=== PATIENT | female | born 1955 | race Caucasian/White ===

== ENCOUNTER → 2016-09-16 | Outpatient (CLI) | payer OTHER ==
[~2016-09-16] MED LIST: ASTE0.15; CALCCHW12 OR; CETI10TA PO; CLAR1TAB2 PO; CLAR5CHW OR; ESTR1TAB OR; FOLI1TAB2 PO; LIDO5DIS EX; MAGN250T OR; METH2.5TA PO; MULTIVIT PO; OMEP20TA7 OR; PROV5TAB OR; SIMV20TA2 PO; SM I100T OR; SOMA350T OR; SUDA30TA OR; SUMA125TA OR; VIST25CA PO; VITA100037 PO; [UNRECOGNIZED DRUG - OTHER]; remicade IV
[2016-09-16 13:10] LABS: ALBUMIN 3.5 GM/DL (3.2-5.2); ALKALINE PHOSPHATASE 123 U/L (45-117); ALT/SGPT 65 U/L (12-78); AST/SGOT 28 U/L (15-37); BILIRUBIN,DIRECT < 0.1 MG/DL (0.0-0.2); BILIRUBIN,TOTAL 0.2 MG/DL (0.2-1.0)
== END ==
LOC: M WUC 09:10
PROVIDERS: ATTEND Internal Medicine Rheumatology
DX: M05.79 Rheumatoid arthritis with rheumatoid factor of multiple sites without organ or systems involvement (principal); R74.0 Nonspecific elevation of levels of transaminase and lactic acid dehydrogenase [LDH]; Z79.899 Other long term (current) drug therapy; Z51.81 Encounter for therapeutic drug level monitoring

== ENCOUNTER → 2016-09-23 | Outpatient (CLI) | payer OTHER ==
[2016-09-23 09:57] LABS: ALBUMIN 3.3 GM/DL (3.2-5.2); ALBUMIN/GLOBULIN RATIO 1.03 (1.00-1.93); ALKALINE PHOSPHATASE 110 U/L (45-117); ALT/SGPT 44 U/L (12-78); AST/SGOT 25 U/L (15-37); BILIRUBIN,DIRECT < 0.1 MG/DL (0.0-0.2); BILIRUBIN,TOTAL 0.3 MG/DL (0.2-1.0); TOTAL PROTEIN 6.5 GM/DL (6.4-8.2)
== END ==
LOC: M WUC 08:28
PROVIDERS: ATTEND Internal Medicine Rheumatology
DX: M05.79 Rheumatoid arthritis with rheumatoid factor of multiple sites without organ or systems involvement (principal); R74.0 Nonspecific elevation of levels of transaminase and lactic acid dehydrogenase [LDH]; Z51.81 Encounter for therapeutic drug level monitoring; Z79.899 Other long term (current) drug therapy

== ENCOUNTER → 2016-10-02 | Outpatient (CLI) | payer OTHER ==
--- NOTE | 2016-10-02 23:50 | ECWPNPC ---
PATIENT NAME: IFRAH LINDA : 1955 GENDER: FEMALE VISIT DATE: 10/02/2016 DISCHARGE DATE: 10/02/16 1134 VISIT LOCKED DATE TIME: PHYSICIAN: TEAGAN CALVILLO RESOURCE: TEAGAN CALVILLO REASON FOR APPOINTMENT 1. WC, LOW BACK HISTORY OF PRESENT ILLNESS HISTORY OF PRESENT ILLNESS: PAIN THE PATIENT DESCRIBES THE PAIN... THE PATIENT DESCRIBES THE PAIN... THE PATIENT DESCRIBES THE PAIN... HERE FOR 3 MOS F/U FOR CHRONIC LBP W BILAT LEG PAIN.RATING PAIN VAS 6/10.THIS A WORK RELATED INJURY DOI FEBRUARY 1997.CURRENT CHRONIC PAIN MEDICATION FOR WORK RELATED INJURY:SOMA 350MG TID.FINDS THIS MEDICINE EFFECTIVE IN REDUCING PAIN AND KEEPING HER FUNCTIONAL.DENIES SIDE EFFECTS.PAIN HAS INCRESED LATELY AND IS INVOLVING RIGHT POSTERIOR THIGH. FALL RISK SCREENING: SCREENING :NO FALLS IN THE PAST YEAR CURRENT MEDICATIONS TAKING REMICADE 100 MG SOLUTION RECONSTITUTED DIRECTED INTRAVENOUS EVERY 8 WEEKS TAKING MAGNESIUM 250 MG TABLET 1 TAB(S) ORALLY TWICE A DAY TAKING MULTIVITAMINS OTC TABLET 1 TAB(S) ORALLY ONCE A DAY TAKING CALCIUM 600 + D 600-400 MG-UNIT TABLET 1 TABLET ORALLY TWICE A DAY TAKING IBUPROFEN 200 MG TABLET 3 TABLETS ORALLY THREE TIMES A DAY TAKING METAMUCIL 1 CAPFUL 1 SCOOP TWICE ADAY NEEDED TAKING VITAMIN D 2000 UNIT TABLET 1 TAB(S) ORALLY ONCE A DAY TAKING LIDOCAINE 5 % PATCH 1 PATCH TO INTACT SKIN REMOVE AFTER 12 HOURS EXTERNALLY NEEDED TAKING OMEPRAZOLE 20 MG CAPSULE DELAYED RELEASE 2 CAPSULES ORALLY ONCE DAILY NEEDED TAKING RESTASIS 0.05 % EMULSION OU OPHTHALMIC TWICE A DAY TAKING FISH OIL 1000 MG CAPSULE 1 CAPSULE ORALLY BID TAKING SOMA 350 MG TABLET 1 TABLET ORALLY THREE TIMES A DAY MDD3 TAKING MECLIZINE HCL 25 MG TABLET 1 TAB ORALLY THREE TIMES DAILY NEEDED TAKING ONDANSETRON 4 MG TABLET DISPERSIBLE 1 TABLET ON THE TONGUE AND ALLOW TO DISSOLVE ORALLY EVERY 8 HRS PRN TAKING PREDNISONE 5MGS 8 TABS ORAL MORNING OF AND DAY AFTER REMICADE TAKING FLONASE ALLERGY RELIEF 50 MCG/ACT SUSPENSION 1 SPRAY IN EACH NOSTRIL NASALLY ONCE A DAY NOT-TAKING METHOTREXATE TABLET 6 TABLETS ORAL ONCE A WEEK NOT-TAKING FOLIC ACID 1 MG TABLET 1 TABLET ORALLY ONCE A DAY MEDICATION LIST REVIEWED AND RECONCILED WITH THE PATIENT PAST MEDICAL HISTORY FREQUENT SINUS INFECTIONS PSORIATIC RHEUMATOID ARTHRITIS (WASICEK) MIGRAINE H/A (OMAYRA FLYNN) LOW BACK SPASMS RAYNAUD'S ALLERGIES GOLD SHOTS: ITCHING: ALLERGY OTC CREAMS, LOTIONS AND DETERGENTS: RASH, ITCHING : ALLERGY ASPIRIN: HIVES: ALLERGY LACTOSE: TERRIBLE GAS: ALLERGY PLAQUENIL: EXTREME ITCHING, BLISTERS: ALLERGY TRAMADOL: CONSTIPATED, NAUSEA, EXTREMELY DRUGGED: ALLERGY LODINE: ITCHING: ALLERGY SULFA (FOR ALLERGY USE ONLY): RASH: ALLERGY SOCIAL HISTORY GENERAL: TOBACCO USE ARE YOU A:NONSMOKER LEARNING BARRIERS / SPECIAL NEEDS ORIENTED TO PLAN OF CARE: PATIENT, PAIN MANAGEMENT PATIENT, ORIENTED TO PLAN OF CARE: PATIENT, PAIN MANAGEMENT PATIENT. NEW PATIENT PAIN DIARY TODAY'S VISITNOTES FROM 0-10, WHAT LEVEL IS YOUR PAIN TODAY?0 PAIN CLINIC PFS, CLERGY, PUBLIC HEALTH REFERRALS PFS REFERRAL NEEDED?NO CLERGY REFERRAL NEEDED?NO PUBLIC HEALTH REFERRAL NEEDED?NO WAS THE PROVIDER NOTIFIED OF ANY PERTINENT INFO?NO PFS REFERRAL NEEDED?NO CLERGY REFERRAL NEEDED?NO PUBLIC HEALTH REFERRAL NEEDED?NO WAS THE PROVIDER NOTIFIED OF ANY PERTINENT INFO?NO REVIEW OF SYSTEMS CONSTITUTIONAL: ANY CHANGE IN YOUR MEDICAL CONDITION? NO . CHILLS NO . FEVER NO . INFECTION: DO YOU HAVE NEW INFECTIONS? NO . DO YOU HAVE HISTORY OF MRSA? NO . MUSCULOSKELETAL: ANY NEW PATTERNS OF PAIN OR NUMBNESS? NO . GASTROENTEROLOGY: ANY NEW CHANGE IN BOWEL CONTROL? NO . GENITOURINARY: ANY NEW CHANGE IN BLADDER CONTROL? NO . IS THERE A CHANCE YOU COULD BE ? NO . HEMATOLOGY/LYMPH: DO YOU TAKE ANY BLOOD THINNERS? (FOR EXAMPLE- COUMADIN, PLAVIX, AGGRENOX, PLATEL, PRADAXA, OR XARELTO) NO . WHEN WAS YOUR LAST DOSE? DATE: TIME: . NEUROLOGY: HAVE YOU FALLEN IN THE PAST 6 MONTHS? NO . ANY NEW EXTREMITY NUMBNESS OR WEAKNESS? NO . CARDIOLOGY: DO YOU HAVE A PACEMAKER OR DEFIBRILLATOR? NO . RESPIRATORY: HAVE YOU BEEN SICK IN THE PAST WEEK? NO . FEVER NO . FLU LIKE SYMPTOMS? NO . COUGH NO . INTEGUMENTARY: DO YOU HAVE ANY RASHES OR OPEN SORES? NO . ALLERGIC/IMMUNO: ARE YOU ALLERGIC TO SHELLFISH OR IV DYE? NO . ANY NEW ALLERGIES? NO . PSYCHIATRIC: DO YOU HAVE THOUGHTS OF HURTING YOURSELF OR SOMEONE ELSE? NO . ARE YOU ABUSED, NEGLECTED, OR IN AN UNSAFE ENVIRONMENT? NO . ENDOCRINOLOGY: ARE YOU DIABETIC? NO . OTHER: DO YOU NEED ANY PRESCRIPTIONS? NO . IF YES, PLEASE LIST: ____ . ANY NEW PROBLEMS WITH YOUR MEDICATIONS? NO . WHEN DID YOU LAST EAT? ____ . WHEN DID YOU LAST DRINK? ____ . WHAT DID YOU LAST DRINK? ____ . NAME OF PERSON DRIVING YOU HOME? ____ . DO YOU HAVE ANY OTHER QUESTIONS OR CONCERNS YES, WOULD LIKE TO TALK ABOUT ANOTHER INJECTION . REVIEWED BY: PROVIDER: TEAGAN STEVE . VITAL SIGNS WT 162 LBS, HT 65.25 IN, BMI 26.75 INDEX, BP 119/64 MM HG, HR 74 /MIN, RR 16 /MIN, TEMP 96.0 F, OXYGEN SAT % 100, NA INITIALS TL 1045, REVIEWED BY: AD. EXAMINATION GENERAL EXAMINATION: LUNGS:LUNG SOUNDS ARE CLEAR. HEART:HEART RATE REGULAR. MUSCULOSKELETAL:*. MUSCULOSKELETAL:*, MUSCLE STRENGTH TESTING 5/5 BILATERAL, PALPATION: POSITIVE FOR PAIN OVER L/S SPINE. POSITIVE FOR PAIN OVER L/S PARSPINALS R>L. ASSESSMENTS POST LAMINECTOMY SYNDROME - M96.1 (PRIMARY) TREATMENT POST LAMINECTOMY SYNDROME CONTINUE SOMA TABLET, 350 MG, 1 TABLET, ORALLY, THREE TIMES A DAY MDD3 TRANSFORAMINAL TEAGAN POLLOCK 10/02/2016 11:21:43 AM > RIGHT L4,L5,S1 NOTES: PATIENT WILL SCEDULE LAST WEEK OF OCTOBER WHICH IS 7 DAYS PRIOR TO NEXT REMICADE. PREVENTIVE MEDICINE PAIN CLINIC TEACHING: PROCEDURE TEACHING PT. DECLINED PRINTED INFORMTION ON PROCEDURE. SHE HAS HAD THESE IN THE PAST AND IS FAMILIAR WITH IT.. PROCEDURE CODES FA211 ESTABILISHED PATIENT [facility] CHARGE FOLLOW UP SCHEDULE RIGHT L4/5,S1 LAST WEEK OF OCT.SHE WILL CALL AND CANCEL IF NOT COMP APPROVED (REASON: W/C L4/5-S1 RIGHT TRANSFORAMINAL) ELECTRONICALLY SIGNED BY EVI KIMBALL ON 10/02/2016 AT 02:38 PM EST DISCLAIMER : THIS IS A VISIT SUMMARY EXTRACTED FROM THE [employer] CHART. IT IS NOT A COPY OF THE [email or web address] PROGRESS NOTE. [place]
== END ==
LOC: M PAIN 11:00
PROVIDERS: ATTEND Nurse Practitioner Family
DX: M96.1 Postlaminectomy syndrome, not elsewhere classified (principal); M54.5 Low back pain; M79.604 Pain in right leg; M79.605 Pain in left leg; G89.29 Other chronic pain; Z79.52 Long term (current) use of systemic steroids; Z79.899 Other long term (current) drug therapy; Z91.09 Other allergy status, other than to drugs and biological substances; Z88.8 Allergy status to other drugs, medicaments and biological substances; Z91.02 Food additives allergy status

== ENCOUNTER → 2016-12-18 | Outpatient (CLI) | payer OTHER ==
--- NOTE | 2016-12-30 00:05 | ECWPNPC ---
PATIENT NAME: IFRAH LINDA : 1955 GENDER: FEMALE VISIT DATE: 12/18/2016 DISCHARGE DATE: 12/18/16 1524 VISIT LOCKED DATE TIME: PHYSICIAN: WAGNER SIMPSON RESOURCE: WAGNER SIMPSON REASON FOR APPOINTMENT 1. LOW BACK PAIN HISTORY OF PRESENT ILLNESS HISTORY OF PRESENT ILLNESS: PAIN THE PATIENT DESCRIBES THE PAIN... 61 YEAR OLD FEMALE PATIENT WITH HISTORY OF CHRONIC LOW BACK PAIN. PATIENT DESCRIBES THE PAIN SHARP, TENDER, AND SORE WITH A PAIN SCORE OF 7-8/10. 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 PATIENT RECEIVED A BACK SURGERY IN 1997 WHICH DID NOT HELP WITH HER PAIN. MRS. LINDA STATES THAT SHE HAS TRIED PHYSICAL THERAPY BUT IT DID NOT AID IN PAIN RELIEF. PATIENT IS CURRENTLY USING SOMA NEEDED AND REPORTS THAT THE MEDICATION KEEPS HER MOBILE AND FUNCTIONAL. PATIENT DENIES UNEXPLAINABLE WEIGHT LOSS, FEVER, CHILLS, NEW CHANGES ON HER URINARY OR BOWEL CONTROL. FALL RISK SCREENING: SCREENING :NO FALLS IN THE PAST YEAR CURRENT MEDICATIONS TAKING REMICADE 100 MG SOLUTION RECONSTITUTED DIRECTED INTRAVENOUS EVERY 8 WEEKS TAKING MAGNESIUM 250 MG TABLET 1 TAB(S) ORALLY TWICE A DAY TAKING MULTIVITAMINS OTC TABLET 1 TAB(S) ORALLY ONCE A DAY TAKING CALCIUM 600 + D 600-400 MG-UNIT TABLET 1 TABLET ORALLY TWICE A DAY TAKING IBUPROFEN 200 MG TABLET 3 TABLETS ORALLY NEEDED 3X/DAY TAKING METAMUCIL 1 CAPFUL 1 SCOOP TWICE ADAY NEEDED TAKING VITAMIN D 2000 UNIT TABLET 1 TAB(S) ORALLY ONCE A DAY TAKING LIDOCAINE 5 % PATCH 1 PATCH TO INTACT SKIN REMOVE AFTER 12 HOURS EXTERNALLY NEEDED TAKING OMEPRAZOLE 20 MG CAPSULE DELAYED RELEASE 2 CAPSULES ORALLY ONCE DAILY NEEDED TAKING RESTASIS 0.05 % EMULSION OU OPHTHALMIC TWICE A DAY TAKING FISH OIL 1000 MG CAPSULE 1 CAPSULE ORALLY BID TAKING MECLIZINE HCL 25 MG TABLET 1 TAB ORALLY THREE TIMES DAILY NEEDED TAKING ONDANSETRON 4 MG TABLET DISPERSIBLE 1 TABLET ON THE TONGUE AND ALLOW TO DISSOLVE ORALLY EVERY 8 HRS PRN TAKING PREDNISONE 5MGS 8 TABS ORAL MORNING OF AND DAY AFTER REMICADE TAKING FLONASE ALLERGY RELIEF 50 MCG/ACT SUSPENSION 1 SPRAY IN EACH NOSTRIL NASALLY ONCE A DAY TAKING SOMA 350 MG TABLET 1 TABLET ORALLY THREE TIMES A DAY MDD3 NOT-TAKING METHOTREXATE TABLET 6 TABLETS ORAL ONCE A WEEK NOT-TAKING FOLIC ACID 1 MG TABLET 1 TABLET ORALLY ONCE A DAY MEDICATION LIST REVIEWED AND RECONCILED WITH THE PATIENT PAST MEDICAL HISTORY FREQUENT SINUS INFECTIONS PSORIATIC RHEUMATOID ARTHRITIS (NICOLE) MIGRAINE H/A (OMAYRAEDITH FLYNN) LOW BACK SPASMS RAYNAUD'S ALLERGIES GOLD SHOTS: ITCHING: ALLERGY OTC CREAMS, LOTIONS AND DETERGENTS: RASH, ITCHING : ALLERGY ASPIRIN: HIVES: ALLERGY LACTOSE: TERRIBLE GAS: ALLERGY PLAQUENIL: EXTREME ITCHING, BLISTERS: ALLERGY TRAMADOL: CONSTIPATED, NAUSEA, EXTREMELY DRUGGED: ALLERGY LODINE: ITCHING: ALLERGY SULFA (FOR ALLERGY USE ONLY): RASH: ALLERGY SURGICAL HISTORY DISKECTOMY-BACK SURGERY CERVICAL CERCLAGE DURING COLONOSCOPY, DR. OVALLE. 07/2013 FAMILY HISTORY NO FAMILY HISTORY DOCUMENTED. SOCIAL HISTORY GENERAL: PAIN CLINIC PFS, CLERGY, PUBLIC HEALTH REFERRALS CLERGY REFERRAL NEEDED?NO WAS THE PROVIDER NOTIFIED OF ANY PERTINENT INFO?NO PFS REFERRAL NEEDED?NO PUBLIC HEALTH REFERRAL NEEDED?NO PATIENT: ____. HOSPITALIZATION/MAJOR DIAGNOSTIC PROCEDURE NO HOSPITALIZATION HISTORY. REVIEW OF SYSTEMS CONSTITUTIONAL: ANY CHANGE IN YOUR MEDICAL CONDITION? NO . CHILLS NO . FEVER NO . INFECTION: DO YOU HAVE NEW INFECTIONS? NO . DO YOU HAVE HISTORY OF MRSA? NO . MUSCULOSKELETAL: ANY NEW PATTERNS OF PAIN OR NUMBNESS? NO . GASTROENTEROLOGY: ANY NEW CHANGE IN BOWEL CONTROL? NO . GENITOURINARY: ANY NEW CHANGE IN BLADDER CONTROL? NO . IS THERE A CHANCE YOU COULD BE ? NO . HEMATOLOGY/LYMPH: DO YOU TAKE ANY BLOOD THINNERS? (FOR EXAMPLE- COUMADIN, PLAVIX, AGGRENOX, PLATEL, PRADAXA, OR XARELTO) NO . WHEN WAS YOUR LAST DOSE? DATE: TIME: . NEUROLOGY: HAVE YOU FALLEN IN THE PAST 6 MONTHS? NO . ANY NEW EXTREMITY NUMBNESS OR WEAKNESS? NO . CARDIOLOGY: DO YOU HAVE A PACEMAKER OR DEFIBRILLATOR? NO . RESPIRATORY: HAVE YOU BEEN SICK IN THE PAST WEEK? NO . FEVER NO . FLU LIKE SYMPTOMS? NO . COUGH NO . INTEGUMENTARY: DO YOU HAVE ANY RASHES OR OPEN SORES? YES PSORIASIS . ALLERGIC/IMMUNO: ARE YOU ALLERGIC TO SHELLFISH OR IV DYE? NO . ANY NEW ALLERGIES? NO . PSYCHIATRIC: DO YOU HAVE THOUGHTS OF HURTING YOURSELF OR SOMEONE ELSE? NO . ARE YOU ABUSED, NEGLECTED, OR IN AN UNSAFE ENVIRONMENT? NO . ENDOCRINOLOGY: ARE YOU DIABETIC? NO . OTHER: DO YOU NEED ANY PRESCRIPTIONS? YES SOMA . IF YES, PLEASE LIST: ____ . ANY NEW PROBLEMS WITH YOUR MEDICATIONS? NO . WHEN DID YOU LAST EAT? ____ . WHEN DID YOU LAST DRINK? ____ . WHAT DID YOU LAST DRINK? ____ . NAME OF PERSON DRIVING YOU HOME? ____ . DO YOU HAVE ANY OTHER QUESTIONS OR CONCERNS NO . REVIEWED BY: PROVIDER: WAGNER SIMPSON MD . VITAL SIGNS WT 160.4 LBS, HT 65.25 IN, BMI 26.48 INDEX, BP 126/66 MM HG, HR 73 /MIN, RR 16 /MIN, TEMP 98.0 F, OXYGEN SAT % 98, NA INITIALS AW 233, REVIEWED BY: MLF. EXAMINATION : PATIENT IS ALERT O X 3 AND COOPERATIVE. TENDERNESS IN THE LOWER BACK AND PARASPINAL MUSCLE GROW MORE TOWARDS THE RIGHT. PATIENT ABLE TO FLEX BACK 45 DEGREES AND EXTEND 10 DEGREES WITH DISCOMFORT. RIGHT LEG IS WEAKER THEN THE LEFT AT EXTENSION AND FLEXION. MRI DONE IN NOVEMBER 2013 SHOWS POST LAMINECTOMY CHANGES AND A COMPRESSION OVER THE L5 NERVE. ASSESSMENTS POST LAMINECTOMY SYNDROME - M96.1 (PRIMARY) INTERVERTEBRAL DISC DISORDERS WITH RADICULOPATHY, LUMBAR REGION - M51.16 INTERVERTEBRAL DISC DISORDERS WITH RADICULOPATHY, LUMBOSACRAL REGION - M51.17 TREATMENT POST LAMINECTOMY SYNDROME REFILL SOMA TABLET, 350 MG, 1 TABLET (CODE D FOR CRONIC PAIN), ORALLY FOR SPASMS AND PAIN, THREE TIMES A DAY NEEDED MDD3, 60 DAYS, 180, REFILLS 0 NOTES: WE DISCUSSED SEVERAL ISSUES WITH MRS. LINDA'S PAIN MANAGEMENT CASE. AT THIS TIME THE PATIENT WILL CONTINUE WITH THE SAME MEDICATION REGIME BEFORE. PATIENT WILL CONTINUE TO USE THE SOMA FOR THE MUSCLE SPASMS AND REPORTS THAT SHE WOULD NOT BE ABLE TO FUNCTION WITHOUT USING THEM DAILY. PATIENT WILL CONTINUE USING IBUPROFEN AND LIDOCAINE CREAM WELL TO KEEP HER MOBILE AND FUNCTIONAL. URINE TOXICOLOGY REPORT DONE ON 08/07/2015 SHOWS CONSISTENT RESULTS WITH THE PATIENTS MEDICATION LIST. AFTER VIEWING THE PATIENT'S MRI AND WHERE THE PATIENT STATES THE WORST PAIN IS I WOULD LIKE TO MOVE FORWARD WITH A TRANSFORAMINAL INJECTION. WE DISCUSSED THE RISKS, BENENFITS, AND ALTNERATIVES OF THE INJECTION AND THE PATIENT WOULD LIKE TO PROCEED AT THIS TIME. INSTRUCTIONS WERE GIVEN, QUESTIONS WERE ANSWERED, PATIENT REPORTS UNDERSTANDING AND AGREES WITH THE PLAN. I, JOHN GRIDER, DOCUMENTED THE ABOVE INFORMATION ACTING A SCRIBE FOR DR. SIMPSON. I HAVE REVIEWED THE ABOVE DOCUMENT, WRITTEN BY JOHN FERNANDEZ AND I VERIFY THAT IT IS ACCURATE. PROCEDURES PN WORKMANS' COMP OPINION IN YOUR OPINION, WAS THE INCIDENT THAT THE PATIENT DESCRIBED THE COMPETENT MEDICAL CAUSE OF THIS INJURY/ILLNESS? YES ARE THE PATIENT'S COMPLAINTS CONSISTENT WITH HIS/HER HISTORY OF THE INJURY/ILLNESS? YES IS THE PATIENT'S HISTORY OF THE INJURY/ILLNESS CONSISTENT WITH YOUR OBJECTIVE FINDING? YES WHAT IS THE PERCENTAGE OF TEMPORARY IMPAIRMENT? MODERATE TO MARKED = 66.7% IS THE PATIENT WORKING? NO DOCTOR ON SITE: WAGNER HOPE MD PROCEDURE CODES FA211 ESTABILISHED PATIENT [facility] FACILITY CHARGE G8427 DOC MEDS VERIFIED W/PT OR RE G8730 PAIN ASSESS POS TOOL F/U PLAN DOC DISPOSITION & COMMUNICATION FOLLOW UP TRANSFORAMINAL AFER APPROVAL ELECTRONICALLY SIGNED BY WAGNER SIMPSON MD ON 12/29/2016 AT 12:43 PM EDT DISCLAIMER : THIS IS A VISIT SUMMARY EXTRACTED FROM THE [email or web address] CHART. IT IS NOT A COPY OF THE [email or web address] PROGRESS NOTE. [place]ADISE
== END ==
LOC: M PAIN 14:00
PROVIDERS: ATTEND Anesthesiology
DX: Z09 Encounter for follow-up examination after completed treatment for conditions other than malignant neoplasm (principal); M96.1 Postlaminectomy syndrome, not elsewhere classified; G89.29 Other chronic pain; M51.16 Intervertebral disc disorders with radiculopathy, lumbar region; M51.17 Intervertebral disc disorders with radiculopathy, lumbosacral region; L40.52 Psoriatic arthritis mutilans; G43.909 Migraine, unspecified, not intractable, without status migrainosus; I73.00 Raynaud's syndrome without gangrene; Z88.8 Allergy status to other drugs, medicaments and biological substances; Z91.09 Other allergy status, other than to drugs and biological substances; Z88.6 Allergy status to analgesic agent; E73.9 Lactose intolerance, unspecified; Z88.5 Allergy status to narcotic agent; Z88.2 Allergy status to sulfonamides; Z79.1 Long term (current) use of non-steroidal anti-inflammatories (NSAID); Z79.52 Long term (current) use of systemic steroids; Z79.891 Long term (current) use of opiate analgesic; Z79.899 Other long term (current) drug therapy

== ENCOUNTER → 2016-12-29 | Outpatient (CLI) | payer OTHER ==
[~2016-12-29] MED LIST changes: +BUPIVACAINE HCL 0.25% 30 ML VIAL As Ordered ONE; +ISOVUE-M 300 61% 15ML VIAL (Q9967) As Ordered ONE; +LIDOCAINE 1% SDV INJ 30 ML VIAL As Ordered ONE; +dexameTHASONE 10 MG/1 ML VIAL PRES.FREE (J1100) As Ordered ONE
--- NOTE | 2016-12-29 13:17 | REP ---
Partial lumbar spine series: Seven views. History: Injection procedure for pain. 59 seconds of fluoroscopy time is reported. Findings: A sequence of seven fluoroscopically guided last image hold spot radiographs of the lumbar spine document various needle positions and contrast injections associated with injection procedure. Signed by Cyrus Huynh MD 12/29/2016 06:26 P
--- NOTE | 2017-01-05 00:35 | ECWPNPC ---
PATIENT NAME: IFRAH LINDA : 1955 GENDER: FEMALE VISIT DATE: 12/29/2016 DISCHARGE DATE: 12/29/16 1222 VISIT LOCKED DATE TIME: PHYSICIAN: WAGNER SIMPSON RESOURCE: WAGNER SIMPSON REASON FOR APPOINTMENT 1. TRANSFORAMINAL MTG HISTORY OF PRESENT ILLNESS HISTORY OF PRESENT ILLNESS: PAIN THE PATIENT DESCRIBES THE PAIN... FALL RISK SCREENING: SCREENING :NO FALLS IN THE PAST YEAR CURRENT MEDICATIONS TAKING REMICADE 100 MG SOLUTION RECONSTITUTED DIRECTED INTRAVENOUS EVERY 8 WEEKS, NOTES: 6 WEEKS AGO TAKING MAGNESIUM 250 MG TABLET 1 TAB(S) ORALLY TWICE A DAY, NOTES: 12/29/16699 TAKING CALCIUM 600 + D 600-400 MG-UNIT TABLET 1 TABLET ORALLY TWICE A DAY, NOTES: 12/29/16699 TAKING MULTIVITAMINS OTC TABLET 1 TAB(S) ORALLY TWICEA DAY, NOTES: 12/29/16699 TAKING IBUPROFEN 200 MG TABLET 3 TABLETS ORALLY NEEDED 3X/DAY, NOTES: 12/28/162099 TAKING METAMUCIL 1 CAPFUL 1 SCOOP TWICE ADAY NEEDED, NOTES: NONE RECNTLY TAKING VITAMIN D 2000 UNIT TABLET 1 TAB(S) ORALLY ONCE A DAY, NOTES: 12/29/16699 TAKING LIDOCAINE 5 % PATCH 1 PATCH TO INTACT SKIN REMOVE AFTER 12 HOURS EXTERNALLY NEEDED, NOTES: 12/28/16699 TAKING OMEPRAZOLE 20 MG CAPSULE DELAYED RELEASE 2 CAPSULES ORALLY ONCE DAILY NEEDED, NOTES: NONE RECENTLY TAKING RESTASIS 0.05 % EMULSION 1 DROP INTO AFFECTED EYE OPHTHALMIC TWICE A DAY, NOTES: 12/29/16699 TAKING FISH OIL 1000 MG CAPSULE 1 CAPSULE ORALLY BID, NOTES: 12/29/16699 TAKING MECLIZINE HCL 25 MG TABLET 1 TAB ORALLY THREE TIMES DAILY NEEDED, NOTES: 2-3 DAYS AGO TAKING ONDANSETRON 4 MG TABLET DISPERSIBLE 1 TABLET ON THE TONGUE AND ALLOW TO DISSOLVE ORALLY EVERY 8 HRS PRN, NOTES: NONE RECENTLY TAKING PREDNISONE 5MGS 8 TABS ORAL MORNING OF AND DAY AFTER REMICADE, NOTES: 6 WEEKS AGO TAKING FLONASE ALLERGY RELIEF 50 MCG/ACT SUSPENSION 1 SPRAY IN EACH NOSTRIL NASALLY ONCE A DAY, NOTES: 12/28/162099 TAKING SOMA 350 MG TABLET 1 TABLET (CODE D FOR CRONIC PAIN) ORALLY FOR SPASMS AND PAIN THREE TIMES A DAY NEEDED MDD3, NOTES: 12/29/16 0700 NOT-TAKING METHOTREXATE TABLET 6 TABLETS ORAL ONCE A WEEK NOT-TAKING FOLIC ACID 1 MG TABLET 1 TABLET ORALLY ONCE A DAY MEDICATION LIST REVIEWED AND RECONCILED WITH THE PATIENT PAST MEDICAL HISTORY FREQUENT SINUS INFECTIONS PSORIATIC RHEUMATOID ARTHRITIS (NICOLE) MIGRAINE H/A (OMAYRA GEE) LOW BACK SPASMS RAYNAUD'S ALLERGIES GOLD SHOTS: ITCHING: ALLERGY OTC CREAMS, LOTIONS AND DETERGENTS: RASH, ITCHING : ALLERGY ASPIRIN: HIVES: ALLERGY LACTOSE: TERRIBLE GAS: ALLERGY PLAQUENIL: EXTREME ITCHING, BLISTERS: ALLERGY TRAMADOL: CONSTIPATED, NAUSEA, EXTREMELY DRUGGED: ALLERGY LODINE: ITCHING: ALLERGY SULFA (FOR ALLERGY USE ONLY): RASH: ALLERGY SURGICAL HISTORY DISKECTOMY-BACK SURGERY 1997 CERVICAL CERCLAGE DURING COLONOSCOPY, DR. OVALLE. 07/2013 SOCIAL HISTORY GENERAL: PAIN CLINIC PFS, CLERGY, PUBLIC HEALTH REFERRALS CLERGY REFERRAL NEEDED?NO WAS THE PROVIDER NOTIFIED OF ANY PERTINENT INFO?NO PFS REFERRAL NEEDED?NO PUBLIC HEALTH REFERRAL NEEDED?NO PATIENT: ____. HOSPITALIZATION/MAJOR DIAGNOSTIC PROCEDURE SURGERIES REVIEW OF SYSTEMS CONSTITUTIONAL: ANY CHANGE IN YOUR MEDICAL CONDITION? NO . CHILLS NO . FEVER NO . INFECTION: DO YOU HAVE NEW INFECTIONS? NO . DO YOU HAVE HISTORY OF MRSA? NO . MUSCULOSKELETAL: ANY NEW PATTERNS OF PAIN OR NUMBNESS? NO . GASTROENTEROLOGY: ANY NEW CHANGE IN BOWEL CONTROL? NO . GENITOURINARY: ANY NEW CHANGE IN BLADDER CONTROL? NO . IS THERE A CHANCE YOU COULD BE ? NO . HEMATOLOGY/LYMPH: DO YOU TAKE ANY BLOOD THINNERS? (FOR EXAMPLE- COUMADIN, PLAVIX, AGGRENOX, PLATEL, PRADAXA, OR XARELTO) NO . WHEN WAS YOUR LAST DOSE? DATE: TIME: . NEUROLOGY: HAVE YOU FALLEN IN THE PAST 6 MONTHS? NO . ANY NEW EXTREMITY NUMBNESS OR WEAKNESS? NO . CARDIOLOGY: DO YOU HAVE A PACEMAKER OR DEFIBRILLATOR? NO . RESPIRATORY: HAVE YOU BEEN SICK IN THE PAST WEEK? NO . FEVER NO . FLU LIKE SYMPTOMS? NO . COUGH NO . INTEGUMENTARY: DO YOU HAVE ANY RASHES OR OPEN SORES? PSORIASIS . ALLERGIC/IMMUNO: ARE YOU ALLERGIC TO SHELLFISH OR IV DYE? NO . ANY NEW ALLERGIES? NO . PSYCHIATRIC: DO YOU HAVE THOUGHTS OF HURTING YOURSELF OR SOMEONE ELSE? NO . ARE YOU ABUSED, NEGLECTED, OR IN AN UNSAFE ENVIRONMENT? NO . ENDOCRINOLOGY: ARE YOU DIABETIC? NO . OTHER: DO YOU NEED ANY PRESCRIPTIONS? NO . IF YES, PLEASE LIST: ____ . ANY NEW PROBLEMS WITH YOUR MEDICATIONS? NO . WHEN DID YOU LAST EAT? LAST NIGHT . WHEN DID YOU LAST DRINK? 0700 . WHAT DID YOU LAST DRINK? SIP WATER . NAME OF PERSON DRIVING YOU HOME? BRANDY LINDA . DO YOU HAVE ANY OTHER QUESTIONS OR CONCERNS NO . REVIEWED BY: PROVIDER: . VITAL SIGNS WT 165.0 LBS, HT 65.25 IN, BMI 27.24 INDEX, BP 137/74 MM HG, HR 71 /MIN, RR 16 /MIN, TEMP 97.6 F, OXYGEN SAT % 99%, NA INITIALS AW 1036, REVIEWED BY: LS. ASSESSMENTS INTERVERTEBRAL DISC DISORDERS WITH RADICULOPATHY, LUMBAR REGION - M51.16 (PRIMARY) INTERVERTEBRAL DISC DISORDERS WITH RADICULOPATHY, LUMBOSACRAL REGION - M51.17 PROCEDURES PN LUMBAR TRANSFORAMINAL BLOCKS PRE PROCEDURE DIAGNOSIS LUMBAR DISC DISORDER WITH RADICULOPATHY, , LUMBOSACRAL DISC DISORDER WITH RADICULOPATHY POST PROCEDURE DIAGNOSIS LUMBAR DISC DISORDER WITH RADICULOPATHY, , LUMBOSACRAL DISC DISORDER WITH RADICULOPATHY PROCEDURE RIGHT L4, RIGHT L5, AND RIGHT S1 LUMBAR TRANSFORAMINAL EPIDURAL STEROID INJECTION UNDER FLUOROSCOPIC GUIDANCE SURGEON DR WAGNER SIMPSON SPUDDER NONE ANESTHESIA LOCAL PRE PROCEDURE NOTE PATIENT WITH HISTORY OF CHRONIC LOW BACK PAIN. I EVALUATE THE PATIENT AND REVIEWED THE CHART. I WENT OVER THE RISKS, ALTERNATIVES, AND BENEFITS ASSOCIATED WITH THIS PROCEDURE. THE PATIENT WOULD LIKE TO PROCEED AND GIVE CONSENT TO PERFORMED THE PROCEDURE. THE PATIENT DENIES UNEXPLAINABLE WEIGHT LOSS, FEVER, CHILLS, OR CHANGES IN URINARY OR BOWEL CONTROL DESCRIPTION OF PROCEDURE THE PATIENT WAS BROUGHT TO THE PROCEDURE ROOM AND PLACED IN THE PRONE POSITION. THE LUMBOSACRAL AREA WAS CLEANED WITH BETADINE SOLUTION AND DRAPED ASEPTICALLY. THE PROCEDURE WAS DONE UNDER STERILE CONDITIONS. I CHECKED LATERALITY AND THE LEVEL WHERE THE PROCEDURE WAS GOING TO BE PERFORMED WITH THE PATIENT AND THE SUPPORTING STAFF AT THE MOMENT OF THE TIME OUT IN THE PROCEDURE ROOM. UNDER FLUOROSCOPIC GUIDANCE, TARGETS WERE SELECTED AT THE RIGHT TRANSFORAMINAL OPENING OF L4, L5, AND S1. TARGET POINT WAS SELECTED AFTER LATERAL ROTATION AND TILT OF THE MAGNIFIER OF THE C-ARM. LIDOCAINE 0.5% WAS USED TO NUMB THE SKIN AND THE SUBCUTANEOUS TISSUE BELOW IT. AN EPIMED INTRODUCER 18-GAUGE WAS ADVANCED UNTIL WE WENT CLOSE TO THE SELECTED TRANSFORAMINAL OPENINGS. AFTER PROPER POSITION OF THE NEEDLES WAS ACHIEVED, A 22-GAUGE EPIMED NEEDLE WAS PLACED INSIDE OF THE INTRODUCER AND ADVANCED TO THE TRANSFORAMINAL OPENING OF THE SELECTED SITES. WHEN PROPER POSITION OF THE NEEDLE WAS ACHIEVED, ISOVUE M DYE 30%, 0.25 ML, WAS INJECTED SHOWING ADEQUATE SPREAD OF THE DYE. THIS WAS DONE UNDER DIGITAL SUBTRACTION AND ANGIOGRAPHY. THERE WAS NO VASCULAR UPDATE. THEN, A SOLUTION OF 2 ML OF BUPIVACAINE 0.25% AND DEXAMETHASONE 10 MG WAS INJECTED AT EACH SITE. THERE WAS NO EVIDENCE OF BLOOD, PARESTHESIA OR CEREBROSPINAL FLUID DURING THE PROCEDURE. THE PATIENT WAS SENT TO THE RECOVERY ROOM. THE PATIENT WAS MOVING THE EXTREMITIES AND DOING WELL. THERE WAS NO COMPLICATION DURING THE PROCEDURE. FLUOROSCOPY TIME WAS 59 SECONDS POST PROCEDURE NOTE THE PROCEDURE DONE WAS DISCUSSED WITH THE PATIENT. THE PATIENT WILL BE SEEN IN A FOLLOW UP IN THE NEXT FEW WEEKS. INSTRUCTIONS WERE GIVEN, QUESTIONS WERE ANSWERED, AND THE PATIENT EXPRESSED UNDERSTANDING AND AGREES WITH THE PLAN. I, MARIA R BROWN, DOCUMENTED THE ABOVE INFORMATION ACTING A SCRIBE FOR DR. SIMPSON. I HAVE REVIEWED THE ABOVE DOCUMENT, WRITTEN BY MARIA R FERNANDEZ AND I VERIFY THAT IT IS ACCURATE. PN WORKMANS' COMP OPINION IN YOUR OPINION, WAS THE INCIDENT THAT THE PATIENT DESCRIBED THE COMPETENT MEDICAL CAUSE OF THIS INJURY/ILLNESS? YES ARE THE PATIENT'S COMPLAINTS CONSISTENT WITH HIS/HER HISTORY OF THE INJURY/ILLNESS? YES IS THE PATIENT'S HISTORY OF THE INJURY/ILLNESS CONSISTENT WITH YOUR OBJECTIVE FINDING? YES WHAT IS THE PERCENTAGE OF TEMPORARY IMPAIRMENT? MODERATE TO MARKED = 66.7% IS THE PATIENT WORKING? NO DOCTOR ON SITE: WAGNER HOPE MD [facility] GUIDE SPINE INJECTION (PAIN)[id number] PROCEDURE CODES 21547 INJ FORAMEN EPIDURAL L/S 32871 INJ FORAMEN EPIDURAL ADD-ON 6045F RADXPS IN END [id number] PXD DISPOSITION & COMMUNICATION FOLLOW UP 3 WEEKS ELECTRONICALLY SIGNED BY WAGNER SIMPSON MD ON 01/04/2017 AT 05:55 PM EDT DISCLAIMER : THIS IS A VISIT SUMMARY EXTRACTED FROM THE [employer] CHART. IT IS NOT A COPY OF THE [facility] PROGRESS NOTE. [place]
== END ==
LOC: M PAIN 11:00
PROVIDERS: ATTEND Anesthesiology
DX: G89.29 Other chronic pain (principal); M51.16 Intervertebral disc disorders with radiculopathy, lumbar region; M51.17 Intervertebral disc disorders with radiculopathy, lumbosacral region; J32.9 Chronic sinusitis, unspecified; I73.00 Raynaud's syndrome without gangrene; Z88.8 Allergy status to other drugs, medicaments and biological substances; Z91.09 Other allergy status, other than to drugs and biological substances; Z88.6 Allergy status to analgesic agent; E73.9 Lactose intolerance, unspecified; Z88.5 Allergy status to narcotic agent; Z88.2 Allergy status to sulfonamides; Z79.899 Other long term (current) drug therapy
CPT/HCPCS: 64483; 64484; J1100; Q9967

== ENCOUNTER → 2017-02-17 | Outpatient (CLI) | payer OTHER ==
[~2017-02-17] MED LIST changes: -BUPIVACAINE HCL 0.25% 30 ML VIAL As Ordered ONE; -ISOVUE-M 300 61% 15ML VIAL (Q9967) As Ordered ONE; -LIDOCAINE 1% SDV INJ 30 ML VIAL As Ordered ONE; -dexameTHASONE 10 MG/1 ML VIAL PRES.FREE (J1100) As Ordered ONE
--- NOTE | 2017-03-04 02:46 | ECWPNPC ---
PATIENT NAME: IFRAH LINDA : 1955 GENDER: FEMALE VISIT DATE: 02/17/2017 DISCHARGE DATE: 02/17/17 1505 VISIT LOCKED DATE TIME: PHYSICIAN: WAGNER SIMPSON RESOURCE: WAGNER SIMPSON REASON FOR APPOINTMENT 1. POST PROCEDURE HISTORY OF PRESENT ILLNESS GENERAL: 61 YEAR OLD FEMALE PATIENT WITH HISTOR OF CHRONIC BACK PAIN. PATIENT DESCRIBES THE PAIN SORE WITH A PAIN SCORE OF 1/10 ON TODAY'S VISIT. 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 PATIENT REPORTS OF TRYING PHYSICAL THERAPY IN THE PAST WITHOUT ANY IMPROVEMENTS. PATIENT HAD BACK SURGERY IN 1997 WHICH WORKED FOR A WHILE THEN PATIENT BEGAN TO EXPERIENCE TIGHTNESS IN HER BACK AND TAKING SOMA HELPS TO ALLEVIATE THE TIGHTNESS. PATIENT RECEIVED A RIGHT L4, L5, AND S1 LUMBAR TRANSFORAMINAL EPIDURAL INJECTION ON 12/29/2016 AND STATES THAT SHE HAD OVER 50 PERCENT IN PAIN RELIEF IT BROUGHT HER PAIN SCORE FROM A 7-8/10 TO 1/10 ON TODAY'S VISIT, WITH INCREASED MOBILITY AND FUNCTIONALITY. PATIENT REPORTS THE RADIATING PAIN DOWN THE LEG IN GONE NOW. THERE IS STILL SOME BACK PAIN, BUT IT IS MANAGEABLE AT THIS TIME. PATIENT DENIES UNEXPLAINABLE WEIGHT LOSS, FEVER, CHILLS, NEW CHANGES ON HER URINARY OR BOWEL CONTROL. HISTORY OF PRESENT ILLNESS: PAIN THE PATIENT DESCRIBES THE PAIN... FALL RISK SCREENING: SCREENING :NO FALLS IN THE PAST YEAR CURRENT MEDICATIONS TAKING REMICADE 100 MG SOLUTION RECONSTITUTED DIRECTED INTRAVENOUS EVERY 8 WEEKS TAKING MAGNESIUM 250 MG TABLET 1 TAB(S) ORALLY TWICE A DAY TAKING CALCIUM 600 + D 600-400 MG-UNIT TABLET 1 TABLET ORALLY TWICE A DAY TAKING MULTIVITAMINS OTC TABLET 1 TAB(S) ORALLY ONCE A DAY TAKING IBUPROFEN 200 MG TABLET 3 TABLETS ORALLY NEEDED 3X/DAY TAKING METAMUCIL 1 CAPFUL 1 SCOOP TWICE ADAY NEEDED TAKING VITAMIN D 2000 UNIT TABLET 1 TAB(S) ORALLY ONCE A DAY TAKING LIDOCAINE 5 % PATCH 1 PATCH TO INTACT SKIN REMOVE AFTER 12 HOURS EXTERNALLY NEEDED TAKING OMEPRAZOLE 20 MG CAPSULE DELAYED RELEASE 2 CAPSULES ORALLY ONCE DAILY NEEDED TAKING RESTASIS 0.05 % EMULSION 1 DROP INTO AFFECTED EYE OPHTHALMIC TWICE A DAY TAKING FISH OIL 1000 MG CAPSULE 1 CAPSULE ORALLY BID TAKING MECLIZINE HCL 25 MG TABLET 1 TAB ORALLY THREE TIMES DAILY NEEDED TAKING ONDANSETRON 4 MG TABLET DISPERSIBLE 1 TABLET ON THE TONGUE AND ALLOW TO DISSOLVE ORALLY EVERY 8 HRS PRN TAKING PREDNISONE 5MGS 8 TABS ORAL MORNING OF AND DAY AFTER REMICADE TAKING FLONASE ALLERGY RELIEF 50 MCG/ACT SUSPENSION 1 SPRAY IN EACH NOSTRIL NASALLY ONCE A DAY TAKING SOMA 350 MG TABLET 1 TABLET (CODE D FOR CRONIC PAIN) ORALLY FOR SPASMS AND PAIN THREE TIMES A DAY NEEDED MDD3 NOT-TAKING METHOTREXATE TABLET 6 TABLETS ORAL ONCE A WEEK NOT-TAKING FOLIC ACID 1 MG TABLET 1 TABLET ORALLY ONCE A DAY MEDICATION LIST REVIEWED AND RECONCILED WITH THE PATIENT PAST MEDICAL HISTORY FREQUENT SINUS INFECTIONS PSORIATIC RHEUMATOID ARTHRITIS (NICOLE) MIGRAINE H/A (OMAYRA FLYNN) LOW BACK SPASMS RAYNAUD'S ALLERGIES GOLD SHOTS: ITCHING: ALLERGY OTC CREAMS, LOTIONS AND DETERGENTS: RASH, ITCHING : ALLERGY ASPIRIN: HIVES: ALLERGY LACTOSE: TERRIBLE GAS: ALLERGY PLAQUENIL: EXTREME ITCHING, BLISTERS: ALLERGY TRAMADOL: CONSTIPATED, NAUSEA, EXTREMELY DRUGGED: ALLERGY LODINE: ITCHING: ALLERGY SULFA (FOR ALLERGY USE ONLY): RASH: ALLERGY SURGICAL HISTORY DISKECTOMY-BACK SURGERY 1997 CERVICAL CERCLAGE DURING COLONOSCOPY, DR. OVALLE. 07/2013 FAMILY HISTORY NO FAMILY HISTORY DOCUMENTED. SOCIAL HISTORY GENERAL: PAIN CLINIC PFS, CLERGY, PUBLIC HEALTH REFERRALS CLERGY REFERRAL NEEDED?NO WAS THE PROVIDER NOTIFIED OF ANY PERTINENT INFO?NO PFS REFERRAL NEEDED?NO PUBLIC HEALTH REFERRAL NEEDED?NO PATIENT: ____. HOSPITALIZATION/MAJOR DIAGNOSTIC PROCEDURE SURGERIES REVIEW OF SYSTEMS CONSTITUTIONAL: ANY CHANGE IN YOUR MEDICAL CONDITION? NO . CHILLS NO . FEVER NO . INFECTION: DO YOU HAVE NEW INFECTIONS? NO . DO YOU HAVE HISTORY OF MRSA? NO . MUSCULOSKELETAL: ANY NEW PATTERNS OF PAIN OR NUMBNESS? NO . GASTROENTEROLOGY: ANY NEW CHANGE IN BOWEL CONTROL? NO . GENITOURINARY: ANY NEW CHANGE IN BLADDER CONTROL? NO . IS THERE A CHANCE YOU COULD BE ? NO . HEMATOLOGY/LYMPH: DO YOU TAKE ANY BLOOD THINNERS? (FOR EXAMPLE- COUMADIN, PLAVIX, AGGRENOX, PLATEL, PRADAXA, OR XARELTO) NO . WHEN WAS YOUR LAST DOSE? DATE: TIME: . NEUROLOGY: HAVE YOU FALLEN IN THE PAST 6 MONTHS? NO . ANY NEW EXTREMITY NUMBNESS OR WEAKNESS? NO . CARDIOLOGY: DO YOU HAVE A PACEMAKER OR DEFIBRILLATOR? NO . RESPIRATORY: HAVE YOU BEEN SICK IN THE PAST WEEK? NO . FEVER NO . FLU LIKE SYMPTOMS? NO . COUGH NO . INTEGUMENTARY: DO YOU HAVE ANY RASHES OR OPEN SORES? YES, PSORIASIS . ALLERGIC/IMMUNO: ARE YOU ALLERGIC TO SHELLFISH OR IV DYE? NO . ANY NEW ALLERGIES? NO . PSYCHIATRIC: DO YOU HAVE THOUGHTS OF HURTING YOURSELF OR SOMEONE ELSE? NO . ARE YOU ABUSED, NEGLECTED, OR IN AN UNSAFE ENVIRONMENT? NO . ENDOCRINOLOGY: ARE YOU DIABETIC? NO . OTHER: DO YOU NEED ANY PRESCRIPTIONS? YES . IF YES, PLEASE LIST: CARISOPRODOL . ANY NEW PROBLEMS WITH YOUR MEDICATIONS? NO . WHEN DID YOU LAST EAT? ____ . WHEN DID YOU LAST DRINK? ____ . WHAT DID YOU LAST DRINK? ____ . NAME OF PERSON DRIVING YOU HOME? ____ . DO YOU HAVE ANY OTHER QUESTIONS OR CONCERNS NO . REVIEWED BY: PROVIDER: WAGNER SIMPSON MD . VITAL SIGNS WT 163.0 LBS, HT 65.25 IN, BMI 26.91 INDEX, BP 123/74 MM HG, HR 79 /MIN, RR 16 /MIN, TEMP 98.0 F, OXYGEN SAT % 96%, NA INITIALS TL 1408, REVIEWED BY: LSPATIENT WAS WEIGHED ON [facility] WEIGHT SCALE- TL. EXAMINATION GENERAL: PATIENT IS ALERT O X 3 AND COOPERATIVE. PATIENT AMBULATES WITH A SLIGHT LIMP ON THE RIGHT LEG. PATIENT'S RIGHT LEG IS WEAKER AT FLEXION AND EXTENSION COMPARED TO THE LEFT LEG. PATIENT IS ABLE TO EXTEND HER BACK TO 80 DEGREES AND FLEX TO 10 DEGREES WITH DISCOMFORT. THERE IS SOME TENDERNESS IN THE LOW BACK. MRI OF THE LUMBAR SPINE DONE IN DECEMBER 05, 2013 SHOWS POST LAMINECTOMY CHANGES AND A COMPRESSION OVER THE L5 NERVE. ASSESSMENTS POST LAMINECTOMY SYNDROME - M96.1 (PRIMARY) LOW BACK PAIN - M54.5 TREATMENT POST LAMINECTOMY SYNDROME REFILL SOMA TABLET, 350 MG, 1 TABLET, ORALLY FOR SPASMS AND PAIN, EVERY 6 HOURS NEEDED MDD3, 30 DAY(S), 90, REFILLS 0 NOTES: WE DISCUSSED SEVERAL ISSUES WITH MRS. LINDA'S PAIN MANAGEMENT CASE. PATIENT WILL RECEIVED A REFILL OF SOMA TODAY, THE PATIENT IS TAKING THIS MEDICATION FOR SPASTICITY AND PAIN. PATIENT BROUGHT HER MEDICATION IN THE ORIGINAL BOTTLES SHE WAS INSTRUCTED TO DO FOR EVERY VISIT. UTOX ORDERED ON 12/29/2016 SHOWS CONSISTENT RESULTS WITH WAS PRESCRIBED. AT THIS TIME WITH THE PATIENT DOING WELL, SHE WILL FOLLOW UP WITH ME IN 3 MONTHS AND THE PATIENT WAS ADVISED TO CALL US SOONER IF NEEDED. INSTRUCTIONS WERE GIVEN, QUESTIONS WERE ANSWERED, PATIENT REPORTS UNDERSTANDING AND AGREES WITH THE PLAN. I, MARIA R BROWN, DOCUMENTED THE ABOVE INFORMATION ACTING A SCRIBE FOR DR. SIMPSON. I HAVE REVIEWED THE ABOVE DOCUMENT, WRITTEN BY MARIA R BROWN SCRIBE AND I VERIFY THAT IT IS ACCURATE. PROCEDURES PN WORKMANS' COMP OPINION IN YOUR OPINION, WAS THE INCIDENT THAT THE PATIENT DESCRIBED THE COMPETENT MEDICAL CAUSE OF THIS INJURY/ILLNESS? YES ARE THE PATIENT'S COMPLAINTS CONSISTENT WITH HIS/HER HISTORY OF THE INJURY/ILLNESS? YES IS THE PATIENT'S HISTORY OF THE INJURY/ILLNESS CONSISTENT WITH YOUR OBJECTIVE FINDING? YES WHAT IS THE PERCENTAGE OF TEMPORARY IMPAIRMENT? MODERATE TO MARKED = 66.7% IS THE PATIENT WORKING? NO DOCTOR ON SITE: WAGNER HOPE MD PROCEDURE CODES FA211 ESTABILISHED PATIENT [facility] FACILITY CHARGE G8730 PAIN ASSESS POS TOOL F/U PLAN DOC G8427 DOC MEDS VERIFIED W/PT OR RE DISPOSITION & COMMUNICATION FOLLOW UP 3 MONTHS ELECTRONICALLY SIGNED BY WAGNER SIMPSON MD ON 03/02/2017 AT 03:05 PM EDT DISCLAIMER : THIS IS A VISIT SUMMARY EXTRACTED FROM THE [employer] CHART. IT IS NOT A COPY OF THE [employer] PROGRESS NOTE. MTDRonn
== END ==
LOC: M PAIN 13:40
PROVIDERS: ATTEND Anesthesiology
DX: M96.1 Postlaminectomy syndrome, not elsewhere classified (principal); M54.5 Low back pain; L40.52 Psoriatic arthritis mutilans; G43.909 Migraine, unspecified, not intractable, without status migrainosus; I73.00 Raynaud's syndrome without gangrene; L23.89 Allergic contact dermatitis due to other agents; Z88.2 Allergy status to sulfonamides; Z88.5 Allergy status to narcotic agent; Z88.8 Allergy status to other drugs, medicaments and biological substances; Z79.52 Long term (current) use of systemic steroids; Z79.899 Other long term (current) drug therapy

== ENCOUNTER → 2017-02-18 | Outpatient (CLI) | payer OTHER ==
[2017-02-18 13:20] LABS: BASO % 0.5 % (0.0-1.0); EOS # 0.2 K/mm3 (0.0-0.50); EOS % 4.7 % (0.0-3.0); LARGE UNSTAINED CELL # 0.2 K/mm3 (0.0-0.4); LARGE UNSTAINED CELL % 3.4 % (0.0-4.0); LYMPH % 40.7 % (24.0-44.0); MEAN CORPUSCULAR HGB CONC 33.2 g/dl (32.0-36.5); MEAN CORPUSCULAR VOLUME 93.3 fl (80.0-96.0); MONO # 0.3 K/mm3 (0.0-0.8); NEUTROPHILS % 43.8 % (36.0-66.0); PLATELET COUNT, AUTOMATED 207 k/mm3 (150-450); RED CELL DISTRIBUTION WIDTH 12.7 % (11.5-14.5); WHITE BLOOD COUNT 4.5 K/mm3 (4.0-10.0)
[2017-02-18 15:31] LABS: ALBUMIN 3.5 GM/DL (3.2-5.2); ALBUMIN/GLOBULIN RATIO 1.06 (1.00-1.93); ALKALINE PHOSPHATASE 117 U/L (45-117); ALT/SGPT 50 U/L (12-78); ANION GAP 4 MEQ/L (8-16); AST/SGOT 32 U/L (15-37); BILIRUBIN,TOTAL 0.3 MG/DL (0.2-1.0); BLOOD UREA NITROGEN 13 MG/DL (7-18); CALCIUM LEVEL 9.2 MG/DL (8.5-10.1); CARBON DIOXIDE LEVEL 32 MEQ/L (21-32); CHLORIDE LEVEL 106 MEQ/L (98-107); CREATININE FOR GFR 0.67 MG/DL (0.55-1.02); GLOMERULAR FILTRATION RATE > 60.0 (>51); GLUCOSE, FASTING 94 MG/DL (70-105); POTASSIUM SERUM 4.8 MEQ/L (3.5-5.1); SODIUM LEVEL 142 MEQ/L (136-145); TOTAL PROTEIN 6.8 GM/DL (6.4-8.2)
== END ==
LOC: M WUC 08:44
PROVIDERS: ATTEND Internal Medicine Rheumatology
DX: M05.79 Rheumatoid arthritis with rheumatoid factor of multiple sites without organ or systems involvement (principal); Z79.899 Other long term (current) drug therapy

== ENCOUNTER → 2017-03-10 | Outpatient (CLI) | payer OTHER | LOC: M WUC 08:12 | PROVIDERS: ATTEND Internal Medicine Rheumatology | DX: M05.79 Rheumatoid arthritis with rheumatoid factor of multiple sites without organ or systems involvement (principal); Z51.81 Encounter for therapeutic drug level monitoring; Z79.899 Other long term (current) drug therapy ==

== ENCOUNTER → 2017-03-18 | Outpatient (CLI) | payer OTHER ==
[~2017-03-18] MED LIST changes: -FOLI1TAB2 PO; +FOLI1TAB4 PO; -VITA100037 PO; +VITA100067 PO
== END ==
LOC: M WUC 09:28
PROVIDERS: ATTEND Internal Medicine Rheumatology
DX: M05.79 Rheumatoid arthritis with rheumatoid factor of multiple sites without organ or systems involvement (principal); Z79.899 Other long term (current) drug therapy

== ENCOUNTER → 2017-03-25 | Outpatient (CLI) | payer OTHER | LOC: M WUC 09:20 | PROVIDERS: ATTEND Internal Medicine Rheumatology | DX: M05.79 Rheumatoid arthritis with rheumatoid factor of multiple sites without organ or systems involvement (principal); Z79.899 Other long term (current) drug therapy ==

== ENCOUNTER → 2017-04-24 | Outpatient (CLI) | payer OTHER ==
[2017-04-24 13:54] LABS: BASO % 0.7 % (0.0-1.0); EOS # 0.2 K/mm3 (0.0-0.50); EOS % 4.6 % (0.0-3.0); LARGE UNSTAINED CELL # 0.1 K/mm3 (0.0-0.4); LARGE UNSTAINED CELL % 2.4 % (0.0-4.0); LYMPH # 1.8 K/mm3 (1.5-4.5); MEAN CORPUSCULAR HEMOGLOBIN 31.7 pg (27.0-33.0); MEAN CORPUSCULAR HGB CONC 33.6 g/dl (32.0-36.5); MEAN CORPUSCULAR VOLUME 94.4 fl (80.0-96.0); MONO # 0.4 K/mm3 (0.0-0.8); MONO % 7.2 % (0.0-5.0); NEUTROPHILS # 2.6 K/mm3 (1.8-7.7); PLATELET COUNT, AUTOMATED 230 k/mm3 (150-450); RED CELL DISTRIBUTION WIDTH 13.4 % (11.5-14.5)
[2017-04-24 14:33] LABS: ALBUMIN 3.6 GM/DL (3.2-5.2); ALT/SGPT 42 U/L (12-78); CREATININE FOR GFR 0.61 MG/DL (0.55-1.02); GLOMERULAR FILTRATION RATE > 60.0 (>45)
== END ==
LOC: M WUC 10:30
PROVIDERS: ATTEND Internal Medicine Rheumatology
DX: M05.79 Rheumatoid arthritis with rheumatoid factor of multiple sites without organ or systems involvement (principal); Z79.899 Other long term (current) drug therapy

== ENCOUNTER → 2017-05-20 | Outpatient (CLI) | payer OTHER ==
--- NOTE | 2017-05-21 01:49 | ECWPNPC ---
PATIENT NAME: IFRAH LINDA : 1955 GENDER: FEMALE VISIT DATE: 05/20/2017 DISCHARGE DATE: 05/20/17 1543 VISIT LOCKED DATE TIME: PHYSICIAN: WAGNER SIMPSON RESOURCE: WAGNER SIMPSON REASON FOR APPOINTMENT 1. W/C BACK HISTORY OF PRESENT ILLNESS HISTORY OF PRESENT ILLNESS: PAIN THE PATIENT DESCRIBES THE PAIN... 62 YEAR OLD FEMALE PATIENT WITH HISTOR OF CHRONIC BACK PAIN. PATIENT DESCRIBES THE PAIN TENDER, AND STATES THAT IT ALWAYS FEELS TIGHT AND GETS TIGHTER WITH STANDING FOR A LONG PERIOD OF TIME AND ALSO WHEN WALKING. PATIENT ALSO STATES THAT WHEN SHE LEANS OVER A CERTAIN WAY HER RIGHT SIDE HURTS AND THE PAIN RADIATES DOWN INTO HER RIGHT HIP, KNEE, AND ANKLE. PATIENT HAS A PAIN SCORE OF 4/10 AT TODAY'S VISIT. 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 PATIENT REPORTS OF TRYING PHYSICAL THERAPY IN THE PAST WITHOUT ANY IMPROVEMENTS. PATIENT HAD BACK SURGERY IN 1997 WHICH WORKED FOR A WHILE THEN PATIENT BEGAN TO EXPERIENCE TIGHTNESS IN HER BACK. PATIENT IS CURRENTLY TAKING SOMA AND STATES THAT SHE WOULD NOT BE ABLE TO FUNCTION WITHOUT THE MEDICATION DUE TO IT AIDING IN HER PAIN RELIEF. PATIENT RECEIVED A RIGHT L4, L5, AND S1 LUMBAR TRANSFORAMINAL EPIDURAL INJECTION ON 12/29/2016 AND STATES THAT SHE HAD OVER 50 PERCENT IN PAIN RELIEF WITH INCREASED MOBILITY AND FUNCTIONALITY. THERE IS STILL SOME BACK PAIN, BUT IT IS MANAGEABLE AT THIS TIME. PATIENT DENIES UNEXPLAINABLE WEIGHT LOSS, FEVER, CHILLS, NEW CHANGES ON HER URINARY OR BOWEL CONTROL. FALL RISK SCREENING: SCREENING :NO FALLS IN THE PAST YEAR CURRENT MEDICATIONS TAKING REMICADE 100 MG SOLUTION RECONSTITUTED DIRECTED INTRAVENOUS EVERY 6 WEEKS TAKING MAGNESIUM 250 MG TABLET 1 TAB(S) ORALLY TWICE A DAY TAKING CALCIUM 600 + D 600-400 MG-UNIT TABLET 1 TABLET ORALLY TWICE A DAY TAKING MULTIVITAMINS OTC TABLET 1 TAB(S) ORALLY ONCE A DAY TAKING IBUPROFEN 200 MG TABLET 3 TABLETS ORALLY NEEDED 3X/DAY TAKING VITAMIN D 2000 UNIT TABLET 1 TAB(S) ORALLY ONCE A DAY TAKING LIDOCAINE 5 % PATCH 1 PATCH TO INTACT SKIN REMOVE AFTER 12 HOURS EXTERNALLY NEEDED TAKING OMEPRAZOLE 20 MG CAPSULE DELAYED RELEASE 2 CAPSULES ORALLY ONCE DAILY NEEDED TAKING RESTASIS 0.05 % EMULSION 1 DROP INTO AFFECTED EYE OPHTHALMIC TWICE A DAY TAKING FISH OIL 1000 MG CAPSULE 1 CAPSULE ORALLY BID TAKING MECLIZINE HCL 25 MG TABLET 1 TAB ORALLY THREE TIMES DAILY NEEDED TAKING ONDANSETRON 4 MG TABLET DISPERSIBLE 1 TABLET ON THE TONGUE AND ALLOW TO DISSOLVE ORALLY EVERY 8 HRS PRN TAKING PREDNISONE 5MGS 8 TABS ORAL MORNING OF AND DAY AFTER REMICADE TAKING FLONASE ALLERGY RELIEF 50 MCG/ACT SUSPENSION 1 SPRAY IN EACH NOSTRIL NASALLY ONCE A DAY TAKING SOMA 350 MG TABLET 1 TABLET ORALLY FOR SPASMS AND PAIN EVERY 6 HOURS NEEDED MDD3 TAKING METHOTREXATE TABLET 6 TABLETS ORAL ONCE A WEEK TAKING FOLIC ACID 1 MG TABLET 1 TABLET ORALLY ONCE A DAY NOT-TAKING METAMUCIL 1 CAPFUL 1 SCOOP TWICE ADAY NEEDED NOT-TAKING METHOTREXATE 2.5 MG TABLET ORALLY ONCE A WEEK MEDICATION LIST REVIEWED AND RECONCILED WITH THE PATIENT PAST MEDICAL HISTORY FREQUENT SINUS INFECTIONS PSORIATIC RHEUMATOID ARTHRITIS (NICOLE) MIGRAINE H/A (OMAYRA FLYNN) LOW BACK SPASMS RAYNAUD'S ALLERGIES GOLD SHOTS: ITCHING: ALLERGY OTC CREAMS, LOTIONS AND DETERGENTS: RASH, ITCHING : ALLERGY ASPIRIN: HIVES: ALLERGY LACTOSE: TERRIBLE GAS: ALLERGY PLAQUENIL: EXTREME ITCHING, BLISTERS: ALLERGY TRAMADOL: CONSTIPATED, NAUSEA, EXTREMELY DRUGGED: ALLERGY LODINE: ITCHING: ALLERGY SULFA (FOR ALLERGY USE ONLY): RASH: ALLERGY REVIEW OF SYSTEMS REVIEWED BY: PROVIDER: WAGNER SIMPSON MD . CONSTITUTIONAL: ANY CHANGE IN YOUR MEDICAL CONDITION? NO . CHILLS NO . FEVER NO . INFECTION: DO YOU HAVE NEW INFECTIONS? NO . DO YOU HAVE HISTORY OF MRSA? NO . MUSCULOSKELETAL: ANY NEW PATTERNS OF PAIN OR NUMBNESS? NO . GASTROENTEROLOGY: ANY NEW CHANGE IN BOWEL CONTROL? NO . GENITOURINARY: ANY NEW CHANGE IN BLADDER CONTROL? NO . IS THERE A CHANCE YOU COULD BE ? NO . HEMATOLOGY/LYMPH: DO YOU TAKE ANY BLOOD THINNERS? (FOR EXAMPLE- COUMADIN, PLAVIX, AGGRENOX, PLATEL, PRADAXA, OR XARELTO) NO . WHEN WAS YOUR LAST DOSE? DATE: TIME: . NEUROLOGY: HAVE YOU FALLEN IN THE PAST 6 MONTHS? NO . ANY NEW EXTREMITY NUMBNESS OR WEAKNESS? NO . CARDIOLOGY: DO YOU HAVE A PACEMAKER OR DEFIBRILLATOR? NO . RESPIRATORY: HAVE YOU BEEN SICK IN THE PAST WEEK? NO . FEVER NO . FLU LIKE SYMPTOMS? NO . COUGH NO . INTEGUMENTARY: DO YOU HAVE ANY RASHES OR OPEN SORES? YES PSORIASIS . ALLERGIC/IMMUNO: ARE YOU ALLERGIC TO SHELLFISH OR IV DYE? NO . ANY NEW ALLERGIES? NO . PSYCHIATRIC: DO YOU HAVE THOUGHTS OF HURTING YOURSELF OR SOMEONE ELSE? NO . ARE YOU ABUSED, NEGLECTED, OR IN AN UNSAFE ENVIRONMENT? NO . ENDOCRINOLOGY: ARE YOU DIABETIC? NO . OTHER: DO YOU NEED ANY PRESCRIPTIONS? YES WILL NEED SOON ..ASKING IF REFILLS WITH SOMA . IF YES, PLEASE LIST: ____ . ANY NEW PROBLEMS WITH YOUR MEDICATIONS? NO . WHEN DID YOU LAST EAT? ____ . WHEN DID YOU LAST DRINK? ____ . WHAT DID YOU LAST DRINK? ____ . NAME OF PERSON DRIVING YOU HOME? ____ . DO YOU HAVE ANY OTHER QUESTIONS OR CONCERNS NO . VITAL SIGNS WT 166 LBS, HT 65.25 IN, BMI 27.41 INDEX, BP 118/63 MM HG, HR 73 /MIN, RR 16 /MIN, TEMP 97.2 F, OXYGEN SAT % 100%, SAFE IN ENV? (Y/N) YES, NA INITIALS KG. EXAMINATION : PATIENT IS ALERT O X 3 AND COOPERATIVE. PATIENT AMBULATES WITH A SLIGHT LIMP ON THE RIGHT LEG. PATIENT'S RIGHT LEG IS WEAKER AT FLEXION AND EXTENSION COMPARED TO THE LEFT LEG. THERE IS SOME TENDERNESS IN THE LOW BACK. MRI OF THE LUMBAR SPINE DONE IN DECEMBER 05, 2013 SHOWS POST LAMINECTOMY CHANGES AND A COMPRESSION OVER THE L5 NERVE. URINE TOX DONE ON 01/02/17 SHOWS CONSISTENT RESULTS WITH THE PATIENTS MEDICATION LIST. 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 LINDA'S PAIN MANAGEMENT CASE. AT THIS TIME WITH THE PATIENT DOING WELL AFTER RECEIVING THE TRANSFORAMINAL EPIDURAL ON 12/29/16 SHE WILL CONTINUE WITH THE SAME MEDICATION REGIME BEFORE. THE PATIENT IS TAKING SOMA FOR SPASTICITY AND PAIN. THE PATIENT STATES THAT SHE WOULD NOT BE ABLE TO FUNCTION WITHOUT THIS MEDICATION. SHE HAS TRIED TO REDUCE IN THE PAST WITHOUT SUCCESS. URINE TOX DONE ON 01/02/2017 SHOWS CONSISTENT RESULTS WITH THE PATIENTS MEDICATION LIST. MRS. LINDA WILL FOLLOW UP WITH A ANALOG DEVICE DESIGNER IN 3 MONTHS AND THE PATIENT WAS ADVISED TO CALL US SOONER IF HER PAIN GETS WORSE BETWEEN NOW AND THEN. INSTRUCTIONS WERE GIVEN, QUESTIONS WERE ANSWERED, PATIENT REPORTS UNDERSTANDING AND AGREES WITH THE PLAN. I, JO BALDWIN, DOCUMENTED THE ABOVE INFORMATION ACTING A SCRIBE FOR DR. SIMPSON. I HAVE REVIEWED THE ABOVE DOCUMENT, WRITTEN BY JO BALDWIN SCRIBE AND I VERIFY THAT IT IS ACCURATE. OTHERS REFILL SOMA TABLET, 350 MG, 1 TABLET, ORALLY FOR SPASMS AND PAIN, EVERY 6 HOURS NEEDED MDD3, 30 DAY(S), 90, REFILLS 2 PROCEDURES PN WORKMANS' COMP OPINION IN YOUR OPINION, WAS THE INCIDENT THAT THE PATIENT DESCRIBED THE COMPETENT MEDICAL CAUSE OF THIS INJURY/ILLNESS? YES ARE THE PATIENT'S COMPLAINTS CONSISTENT WITH HIS/HER HISTORY OF THE INJURY/ILLNESS? YES IS THE PATIENT'S HISTORY OF THE INJURY/ILLNESS CONSISTENT WITH YOUR OBJECTIVE FINDING? YES WHAT IS THE PERCENTAGE OF TEMPORARY IMPAIRMENT? MODERATE TO MARKED = 66.7% IS THE PATIENT WORKING? NO DOCTOR ON SITE: WAGNER HOPE MD PROCEDURE CODES FA211 ESTABILISHED PATIENT [facility] CHARGE 71347 OFFICE/OUTPATIENT VISIT EST G8427 DOC MEDS VERIFIED W/PT OR RE G8730 PAIN ASSESS POS TOOL F/U PLAN DOC DISPOSITION & COMMUNICATION FOLLOW UP 3 MONTHS ELECTRONICALLY SIGNED BY WAGNER SIMPSON MD ON 05/20/2017 AT 03:58 PM EDT DISCLAIMER : THIS IS A VISIT SUMMARY EXTRACTED FROM THE [employer] CHART. IT IS NOT A COPY OF THE [employer] PROGRESS NOTE. MTDD
== END ==
LOC: M PAIN 13:20
PROVIDERS: ATTEND Anesthesiology
DX: G89.29 Other chronic pain (principal); M51.06 Intervertebral disc disorders with myelopathy, lumbar region; L40.50 Arthropathic psoriasis, unspecified; M06.9 Rheumatoid arthritis, unspecified; I73.00 Raynaud's syndrome without gangrene; Z88.6 Allergy status to analgesic agent; Z88.5 Allergy status to narcotic agent; Z88.2 Allergy status to sulfonamides; Z88.8 Allergy status to other drugs, medicaments and biological substances; Z79.1 Long term (current) use of non-steroidal anti-inflammatories (NSAID); Z79.52 Long term (current) use of systemic steroids; Z91.048 Other nonmedicinal substance allergy status

== ENCOUNTER → 2017-05-28 | Outpatient (CLI) | payer OTHER ==
[2017-05-28 13:33] LABS: ALBUMIN 3.7 GM/DL (3.2-5.2); ALT/SGPT 40 U/L (12-78); CREATININE FOR GFR 0.65 MG/DL (0.55-1.02); GLOMERULAR FILTRATION RATE > 60.0 (>45)
[2017-05-28 13:35] LABS: BASO % 0.7 % (0.0-1.0); EOS # 0.2 K/mm3 (0.0-0.50); EOS % 4.4 % (0.0-3.0); LARGE UNSTAINED CELL # 0.1 K/mm3 (0.0-0.4); LARGE UNSTAINED CELL % 2.8 % (0.0-4.0); LYMPH # 1.6 K/mm3 (1.5-4.5); LYMPH % 34.4 % (24.0-44.0); MEAN CORPUSCULAR HEMOGLOBIN 31.7 pg (27.0-33.0); MEAN CORPUSCULAR HGB CONC 33.5 g/dl (32.0-36.5); MEAN CORPUSCULAR VOLUME 94.8 fl (80.0-96.0); MONO # 0.3 K/mm3 (0.0-0.8); MONO % 6.7 % (0.0-5.0); NEUTROPHILS # 2.3 K/mm3 (1.8-7.7); NEUTROPHILS % 51.1 % (36.0-66.0); PLATELET COUNT, AUTOMATED 248 k/mm3 (150-450); RED CELL DISTRIBUTION WIDTH 13.8 % (11.5-14.5); WHITE BLOOD COUNT 4.5 K/mm3 (4.0-10.0)
== END ==
LOC: M WUC 10:12
PROVIDERS: ATTEND Internal Medicine Rheumatology
DX: Z79.899 Other long term (current) drug therapy (principal); M05.79 Rheumatoid arthritis with rheumatoid factor of multiple sites without organ or systems involvement

== ENCOUNTER → 2017-06-19 | Outpatient (CLI) | payer OTHER ==
--- NOTE | 2017-06-19 09:54 | REPMRS ---
Patient History The patient states she had a clinical breast exam in Patient is postmenopausal. Family history of prostate cancer in father at age 50 or over, colorectal cancer in father, and breast cancer in paternal grandmother at age 50 or over. Took estrogen for 3 years. Took progesterone for 3 years. Digital Woman Screen Mammo: June 19, 2017 - Exam #: [id number] Bilateral CC and MLO view(s) were taken. Technologist: Nelly Alexander, Technologist Prior study comparison: June 13, 2016, digital woman screen mammo performed at [facility]. June 13, 2015, digital woman screen mammo performed at [facility]. June 13, 2014, digital woman screen mammo performed at [facility]. FINDINGS: There are scattered fibroglandular densities. There has been no change in the appearance of the mammogram from the prior studies. There is a mild amount of scattered fibroglandular density which is fairly symmetric. There is no interval development of dominant mass, architectural distortion, or clustered microcalcification suggestive of malignancy. ASSESSMENT: BI-RADS/ACR category 1 mammogram. Negative. Recommendation Routine screening mammogram in 1 year (for women over age 40). This mammogram was interpreted with the aid of an FDA-approved computer-aided dectection system. Electronically Signed By: Gal Huynh MD 06/19/17 0954
== END ==
LOC: M WHC 08:24
PROVIDERS: ATTEND Nurse Practitioner Women's Health
DX: Z12.31 Encounter for screening mammogram for malignant neoplasm of breast (principal)

== ENCOUNTER → 2017-06-19 | Outpatient (REF) | payer OTHER | LOC: M SFHCWAGY 09:03 | PROVIDERS: ATTEND Nurse Practitioner Women's Health | DX: Z12.4 Encounter for screening for malignant neoplasm of cervix (principal) ==

== ENCOUNTER → 2017-06-25 | Outpatient (CLI) | payer OTHER ==
[2017-06-25 14:02] LABS: BASO % 0.9 % (0.0-1.0); EOS # 0.1 10^3/uL (0.0-0.50); EOS % 2.9 % (0.0-3.0); LYMPH # 1.7 10^3/uL (1.5-4.5); LYMPH % 38.4 % (24.0-44.0); MEAN CORPUSCULAR HEMOGLOBIN 31.8 pg (27.0-33.0); MEAN CORPUSCULAR HGB CONC 33.4 g/dl (32.0-36.5); MEAN CORPUSCULAR VOLUME 95.3 fl (80.0-96.0); MONO # 0.4 10^3/uL (0.0-0.8); MONO % 7.8 % (0.0-5.0); NEUTROPHILS # 2.2 10^3/uL (1.8-7.7); PLATELET COUNT, AUTOMATED 232 10^3/uL (150-450); WHITE BLOOD COUNT 4.5 10^3/uL (4.0-10.0)
[2017-06-25 14:10] LABS: ALBUMIN 3.7 GM/DL (3.2-5.2); ALT/SGPT 34 U/L (12-78); CREATININE FOR GFR 0.68 MG/DL (0.55-1.02); GLOMERULAR FILTRATION RATE > 60.0 (>45)
== END ==
LOC: M WUC 10:09
PROVIDERS: ATTEND Internal Medicine Rheumatology
DX: M05.79 Rheumatoid arthritis with rheumatoid factor of multiple sites without organ or systems involvement (principal)

== ENCOUNTER → 2017-07-23 | Outpatient (CLI) | payer OTHER ==
[2017-07-23 13:30] LABS: BASO % 0.5 % (0.0-1.0); EOS # 0.1 10^3/uL (0.0-0.50); EOS % 0.9 % (0.0-3.0); IMMATURE GRANULOCYTE % 0.6 % (0-0); LYMPH # 1.9 10^3/uL (1.5-4.5); LYMPH % 28.5 % (24.0-44.0); MEAN CORPUSCULAR HEMOGLOBIN 31.5 pg (27.0-33.0); MEAN CORPUSCULAR HGB CONC 32.6 g/dl (32.0-36.5); MEAN CORPUSCULAR VOLUME 96.6 fl (80.0-96.0); MONO # 0.5 10^3/uL (0.0-0.8); MONO % 6.9 % (0.0-5.0); NEUTROPHILS # 4.1 10^3/uL (1.8-7.7); NEUTROPHILS % 62.6 % (36.0-66.0); PLATELET COUNT, AUTOMATED 240 10^3/uL (150-450); RED CELL DISTRIBUTION WIDTH 14.6 % (11.5-14.5); WHITE BLOOD COUNT 6.5 10^3/uL (4.0-10.0)
[2017-07-23 13:57] LABS: ALBUMIN 3.5 GM/DL (3.2-5.2); ALT/SGPT 32 U/L (12-78); CREATININE FOR GFR 0.75 MG/DL (0.55-1.02); GLOMERULAR FILTRATION RATE > 60.0 (>45)
== END ==
LOC: M WUC 09:48
PROVIDERS: ATTEND Internal Medicine Rheumatology
DX: M05.79 Rheumatoid arthritis with rheumatoid factor of multiple sites without organ or systems involvement (principal); Z79.899 Other long term (current) drug therapy

== ENCOUNTER → 2017-07-31 | Outpatient (CLI) | payer OTHER ==
--- NOTE | 2017-08-01 00:47 | ECWPNPC ---
PATIENT NAME: IFRAH LINDA : 1955 GENDER: FEMALE VISIT DATE: 07/31/2017 DISCHARGE DATE: 07/31/17 1144 VISIT LOCKED DATE TIME: PHYSICIAN: TEAGAN CALVILLO RESOURCE: TEAGAN CALVILLO REASON FOR APPOINTMENT 1. BACK WC HISTORY OF PRESENT ILLNESS HISTORY OF PRESENT ILLNESS: PAIN THE PATIENT DESCRIBES THE PAIN... THE PATIENT DESCRIBES THE PAIN... THE PATIENT DESCRIBES THE PAIN... THE PATIENT DESCRIBES THE PAIN... PAIN THE PATIENT DESCRIBES THE PAIN... THE PATIENT DESCRIBES THE PAIN... THE PATIENT DESCRIBES THE PAIN... THE PATIENT DESCRIBES THE PAIN... HERE FOR 3 MOS F/U FOR CHRONIC LBP W BILAT LEG PAIN.RATING PAIN VAS 6/10.THIS A WORK RELATED INJURY DOI FEBRUARY 1997.CURRENT CHRONIC PAIN MEDICATION FOR WORK RELATED INJURY:SOMA 350MG TID.FINDS THIS MEDICINE EFFECTIVE IN REDUCING PAIN AND KEEPING HER FUNCTIONAL.DENIES SIDE EFFECTS.PAIN HAS INCRESED LATELY AND IS INVOLVING RIGHT POSTERIOR THIGH. FALL RISK SCREENING: SCREENING :NO FALLS IN THE PAST YEAR CURRENT MEDICATIONS UNKNOWN REMICADE 100 MG SOLUTION RECONSTITUTED DIRECTED INTRAVENOUS EVERY 6 WEEKS UNKNOWN MAGNESIUM 250 MG TABLET 1 TAB(S) ORALLY TWICE A DAY UNKNOWN CALCIUM 600 + D 600-400 MG-UNIT TABLET 1 TABLET ORALLY TWICE A DAY UNKNOWN MULTIVITAMINS OTC TABLET 1 TAB(S) ORALLY ONCE A DAY UNKNOWN IBUPROFEN 200 MG TABLET 3 TABLETS ORALLY NEEDED 3X/DAY UNKNOWN VITAMIN D 2000 UNIT TABLET 1 TAB(S) ORALLY ONCE A DAY UNKNOWN LIDOCAINE 5 % PATCH 1 PATCH TO INTACT SKIN REMOVE AFTER 12 HOURS EXTERNALLY NEEDED UNKNOWN OMEPRAZOLE 20 MG CAPSULE DELAYED RELEASE 2 CAPSULES ORALLY ONCE DAILY NEEDED UNKNOWN RESTASIS 0.05 % EMULSION 1 DROP INTO AFFECTED EYE OPHTHALMIC TWICE A DAY UNKNOWN FISH OIL 1000 MG CAPSULE 1 CAPSULE ORALLY BID UNKNOWN MECLIZINE HCL 25 MG TABLET 1 TAB ORALLY THREE TIMES DAILY NEEDED UNKNOWN ONDANSETRON 4 MG TABLET DISPERSIBLE 1 TABLET ON THE TONGUE AND ALLOW TO DISSOLVE ORALLY EVERY 8 HRS PRN UNKNOWN PREDNISONE 5MGS 8 TABS ORAL MORNING OF AND DAY AFTER REMICADE UNKNOWN FLONASE ALLERGY RELIEF 50 MCG/ACT SUSPENSION 1 SPRAY IN EACH NOSTRIL NASALLY ONCE A DAY UNKNOWN METHOTREXATE TABLET 6 TABLETS ORAL ONCE A WEEK UNKNOWN FOLIC ACID 1 MG TABLET 1 TABLET ORALLY ONCE A DAY UNKNOWN SOMA 350 MG TABLET 1 TABLET ORALLY FOR SPASMS AND PAIN THREE TIMES A DAY UNKNOWN METAMUCIL 1 CAPFUL 1 SCOOP TWICE ADAY NEEDED UNKNOWN METHOTREXATE 2.5 MG TABLET ORALLY ONCE A WEEK PAST MEDICAL HISTORY FREQUENT SINUS INFECTIONS PSORIATIC RHEUMATOID ARTHRITIS (NICOLE) MIGRAINE H/A (OMAYRA FLYNN) LOW BACK SPASMS RAYNAUD'S ALLERGIES GOLD SHOTS: ITCHING: ALLERGY OTC CREAMS, LOTIONS AND DETERGENTS: RASH, ITCHING : ALLERGY ASPIRIN: HIVES: ALLERGY LACTOSE: TERRIBLE GAS: ALLERGY PLAQUENIL: EXTREME ITCHING, BLISTERS: ALLERGY TRAMADOL: CONSTIPATED, NAUSEA, EXTREMELY DRUGGED: ALLERGY LODINE: ITCHING: ALLERGY SULFA (FOR ALLERGY USE ONLY): RASH: ALLERGY REVIEW OF SYSTEMS REVIEWED BY: PROVIDER: TEAGAN STEVE . CONSTITUTIONAL: ANY CHANGE IN YOUR MEDICAL CONDITION? NO . CHILLS NO . FEVER NO . INFECTION: DO YOU HAVE NEW INFECTIONS? NO . DO YOU HAVE HISTORY OF MRSA? NO . MUSCULOSKELETAL: ANY NEW PATTERNS OF PAIN OR NUMBNESS? NO . GASTROENTEROLOGY: ANY NEW CHANGE IN BOWEL CONTROL? NO . GENITOURINARY: ANY NEW CHANGE IN BLADDER CONTROL? NO . IS THERE A CHANCE YOU COULD BE ? NO . HEMATOLOGY/LYMPH: DO YOU TAKE ANY BLOOD THINNERS? (FOR EXAMPLE- COUMADIN, PLAVIX, AGGRENOX, PLATEL, PRADAXA, OR XARELTO) NO . WHEN WAS YOUR LAST DOSE? DATE: TIME: . NEUROLOGY: HAVE YOU FALLEN IN THE PAST 6 MONTHS? NO . ANY NEW EXTREMITY NUMBNESS OR WEAKNESS? NO . CARDIOLOGY: DO YOU HAVE A PACEMAKER OR DEFIBRILLATOR? NO . RESPIRATORY: HAVE YOU BEEN SICK IN THE PAST WEEK? NO . FEVER NO . FLU LIKE SYMPTOMS? NO . COUGH NO . INTEGUMENTARY: DO YOU HAVE ANY RASHES OR OPEN SORES? NO . ALLERGIC/IMMUNO: ARE YOU ALLERGIC TO SHELLFISH OR IV DYE? NO . ANY NEW ALLERGIES? NO . PSYCHIATRIC: DO YOU HAVE THOUGHTS OF HURTING YOURSELF OR SOMEONE ELSE? NO . ARE YOU ABUSED, NEGLECTED, OR IN AN UNSAFE ENVIRONMENT? NO . ENDOCRINOLOGY: ARE YOU DIABETIC? NO . OTHER: DO YOU NEED ANY PRESCRIPTIONS? YES . IF YES, PLEASE LIST: ____SOMA . ANY NEW PROBLEMS WITH YOUR MEDICATIONS? NO . WHEN DID YOU LAST EAT? ____ . WHEN DID YOU LAST DRINK? ____ . WHAT DID YOU LAST DRINK? ____ . NAME OF PERSON DRIVING YOU HOME? ____ . DO YOU HAVE ANY OTHER QUESTIONS OR CONCERNS NO . VITAL SIGNS WT 167 LBS, HT 65.25 IN, BMI 27.57 INDEX, BP 132/70 MM HG, HR 72 /MIN, RR 16 /MIN, TEMP 98.9 F, OXYGEN SAT % 100%, SAFE IN ENV? (Y/N) YES, NA INITIALS SC 11:07, REVIEWED BY: HANY. EXAMINATION GENERAL EXAMINATION: LUNGS:LUNG SOUNDS ARE CLEAR. HEART:HEART RATE REGULAR. MUSCULOSKELETAL:*, MUSCLE STRENGTH TESTING 5/5 BILATERAL, PALPATION: POSITIVE FOR PAIN OVER L/S SPINE. POSITIVE FOR PAIN OVER L/S PARSPINALS.SPECIFIC POINT TENDERNESS RIGHT LOW BACK. 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 YES ARE THE PATIENT'S COMPLAINTS CONSISTENT WITH HIS/HER HISTORY OF THE INJURY/ILLNESS? YES IS THE PATIENT'S HISTORY OF THE INJURY/ILLNESS CONSISTENT WITH YOUR OBJECTIVE FINDING? YES WHAT IS THE PERCENTAGE OF TEMPORARY IMPAIRMENT? MODERATE TO MARKED = 66.7% IS THE PATIENT WORKING? NO DOCTOR ON SITE: [facility] MD PROCEDURE CODES FA211 ESTABILISHED PATIENT [facility] FACILITY CHARGE DISPOSITION & COMMUNICATION FOLLOW UP 2 MONTHS ELECTRONICALLY SIGNED BY EVI KIMBALL ON 07/31/2017 AT 11:37 AM EST DISCLAIMER : THIS IS A VISIT SUMMARY EXTRACTED FROM THE [employer] CHART. IT IS NOT A COPY OF THE [employer] PROGRESS NOTE. [place]
== END ==
LOC: M PAIN 10:30
PROVIDERS: ATTEND Nurse Practitioner Family
DX: M96.1 Postlaminectomy syndrome, not elsewhere classified (principal); M51.06 Intervertebral disc disorders with myelopathy, lumbar region; L40.52 Psoriatic arthritis mutilans; G43.909 Migraine, unspecified, not intractable, without status migrainosus; I73.00 Raynaud's syndrome without gangrene; Z88.8 Allergy status to other drugs, medicaments and biological substances; Z88.6 Allergy status to analgesic agent; E73.9 Lactose intolerance, unspecified; Z88.5 Allergy status to narcotic agent; Z88.2 Allergy status to sulfonamides; Z79.52 Long term (current) use of systemic steroids; Z79.891 Long term (current) use of opiate analgesic; Z79.899 Other long term (current) drug therapy

== ENCOUNTER → 2017-08-27 | Outpatient (CLI) | payer OTHER ==
[2017-08-27 14:03] LABS: BASO % 0.9 % (0.0-1.0); EOS # 0.1 10^3/uL (0.0-0.50); EOS % 1.7 % (0.0-3.0); IMMATURE GRANULOCYTE % 0.7 % (0-0); LYMPH # 1.2 10^3/uL (1.5-4.5); LYMPH % 26.2 % (24.0-44.0); MEAN CORPUSCULAR HEMOGLOBIN 31.3 pg (27.0-33.0); MEAN CORPUSCULAR HGB CONC 32.7 g/dl (32.0-36.5); MEAN CORPUSCULAR VOLUME 95.5 fl (80.0-96.0); MONO # 0.6 10^3/uL (0.0-0.8); MONO % 12.1 % (0.0-5.0); NEUTROPHILS # 2.7 10^3/uL (1.8-7.7); NEUTROPHILS % 58.4 % (36.0-66.0); PLATELET COUNT, AUTOMATED 239 10^3/uL (150-450); RED CELL DISTRIBUTION WIDTH 14.1 % (11.5-14.5); WHITE BLOOD COUNT 4.6 10^3/uL (4.0-10.0)
[2017-08-27 14:12] LABS: ALBUMIN 3.6 GM/DL (3.2-5.2); ALT/SGPT 58 U/L (12-78); CREATININE FOR GFR 0.71 MG/DL (0.55-1.02); GLOMERULAR FILTRATION RATE > 60.0 (>45)
== END ==
LOC: M WUC 09:23
PROVIDERS: ATTEND Internal Medicine Rheumatology
DX: M05.79 Rheumatoid arthritis with rheumatoid factor of multiple sites without organ or systems involvement (principal); Z79.899 Other long term (current) drug therapy

== ENCOUNTER → 2017-08-27 | Outpatient (CLI) | payer OTHER ==
[2017-08-27 14:03] LABS: BASO % 0.6 % (0.0-1.0); EOS # 0.1 10^3/uL (0.0-0.50); EOS % 1.9 % (0.0-3.0); IMMATURE GRANULOCYTE % 0.4 % (0-0); LYMPH # 1.3 10^3/uL (1.5-4.5); LYMPH % 26.8 % (24.0-44.0); MEAN CORPUSCULAR HEMOGLOBIN 31.5 pg (27.0-33.0); MEAN CORPUSCULAR HGB CONC 32.8 g/dl (32.0-36.5); MONO # 0.6 10^3/uL (0.0-0.8); NEUTROPHILS # 2.7 10^3/uL (1.8-7.7); NEUTROPHILS % 57.3 % (36.0-66.0); PLATELET COUNT, AUTOMATED 253 10^3/uL (150-450); RED CELL DISTRIBUTION WIDTH 14.1 % (11.5-14.5); WHITE BLOOD COUNT 4.7 10^3/uL (4.0-10.0)
[2017-08-27 14:14] LABS: ALBUMIN 3.6 GM/DL (3.2-5.2); ALBUMIN/GLOBULIN RATIO 1.03 (1.00-1.93); ALKALINE PHOSPHATASE 108 U/L (45-117); ALT/SGPT 58 U/L (12-78); ANION GAP 6 MEQ/L (8-16); AST/SGOT 36 U/L (7-37); BILIRUBIN,TOTAL 0.3 MG/DL (0.2-1.0); BLOOD UREA NITROGEN 13 MG/DL (7-18); CARBON DIOXIDE LEVEL 28 MEQ/L (21-32); CHLORIDE LEVEL 107 MEQ/L (98-107); CHOLESTEROL LEVEL 301 MG/DL (<200); CREATININE FOR GFR 0.71 MG/DL (0.55-1.02); GLOMERULAR FILTRATION RATE > 60.0 (>45); GLUCOSE, FASTING 84 MG/DL (80-110); POTASSIUM SERUM 4.6 MEQ/L (3.5-5.1); SODIUM LEVEL 141 MEQ/L (136-145); TOTAL PROTEIN 7.1 GM/DL (6.4-8.2); TRIGLYCERIDES LEVEL 53 MG/DL (<150)
== END ==
LOC: M WUC 09:25
PROVIDERS: ATTEND Family Medicine
DX: Z00.00 Encounter for general adult medical examination without abnormal findings (principal)

== ENCOUNTER → 2017-09-30 | Outpatient (CLI) | payer OTHER | LOC: M PAIN 08:30 | DX: M96.1 Postlaminectomy syndrome, not elsewhere classified (principal); M51.06 Intervertebral disc disorders with myelopathy, lumbar region; L40.52 Psoriatic arthritis mutilans; G43.909 Migraine, unspecified, not intractable, without status migrainosus; I73.00 Raynaud's syndrome without gangrene; E73.9 Lactose intolerance, unspecified; Z79.52 Long term (current) use of systemic steroids; Z79.891 Long term (current) use of opiate analgesic; Z79.899 Other long term (current) drug therapy; Z88.2 Allergy status to sulfonamides; Z88.5 Allergy status to narcotic agent; Z88.6 Allergy status to analgesic agent; Z88.8 Allergy status to other drugs, medicaments and biological substances | CPT/HCPCS: G0463 ==

== ENCOUNTER → 2017-10-01 | Outpatient (CLI) | payer OTHER ==
[2017-10-01 14:06] LABS: BASO % 0.7 % (0.0-1.0); EOS # 0.1 10^3/uL (0.0-0.50); HEMATOCRIT 43.2 % (36.0-47.0); HEMOGLOBIN 14.3 g/dl (12.0-16.0); IMMATURE GRANULOCYTE % 0.4 % (0-0); LYMPH # 1.7 10^3/uL (1.5-4.5); LYMPH % 31.7 % (24.0-44.0); MEAN CORPUSCULAR HEMOGLOBIN 32.1 pg (27.0-33.0); MEAN CORPUSCULAR HGB CONC 33.1 g/dl (32.0-36.5); MEAN CORPUSCULAR VOLUME 96.9 fl (80.0-96.0); MONO # 0.6 10^3/uL (0.0-0.8); MONO % 10.8 % (0.0-5.0); NEUTROPHILS # 2.9 10^3/uL (1.8-7.7); NEUTROPHILS % 54.4 % (36.0-66.0); PLATELET COUNT, AUTOMATED 224 10^3/uL (150-450); RED BLOOD COUNT 4.46 10^6/uL (4.00-5.40); RED CELL DISTRIBUTION WIDTH 14.2 % (11.5-14.5); WHITE BLOOD COUNT 5.4 10^3/uL (4.0-10.0)
[2017-10-01 14:32] LABS: ALBUMIN 3.6 GM/DL (3.2-5.2); ALT/SGPT 49 U/L (12-78); CREATININE FOR GFR 0.71 MG/DL (0.55-1.02); GLOMERULAR FILTRATION RATE > 60.0 (>45)
== END ==
LOC: M WUC 09:40
DX: M05.79 Rheumatoid arthritis with rheumatoid factor of multiple sites without organ or systems involvement (principal); Z79.899 Other long term (current) drug therapy
CPT/HCPCS: 84460

== ENCOUNTER → 2017-10-28 | Outpatient (CLI) | payer OTHER ==
[~2017-10-28] MED LIST changes: -ASTE0.15; +BUPIVACAINE HCL 0.25% 30 ML VIAL As Ordered; -CALCCHW12 OR; -CETI10TA PO; -CLAR1TAB2 PO; -CLAR5CHW OR; -ESTR1TAB OR; -FOLI1TAB4 PO; +ISOVUE-M 300 61% 15ML VIAL (Q9967) As Ordered; -LIDO5DIS EX; +LIDOCAINE 1% SDV INJ 30 ML VIAL As Ordered; -MAGN250T OR; -METH2.5TA PO; -MULTIVIT PO; -OMEP20TA7 OR; -PROV5TAB OR; -SIMV20TA2 PO; -SM I100T OR; -SOMA350T OR; -SUDA30TA OR; -SUMA125TA OR; -VIST25CA PO; -VITA100067 PO; -[UNRECOGNIZED DRUG - OTHER]; +dexameTHASONE 10 MG/1 ML VIAL PRES.FREE (J1100) As Ordered; -remicade IV
== END ==
LOC: M PAIN 13:15
DX: M96.1 Postlaminectomy syndrome, not elsewhere classified (principal); M51.16 Intervertebral disc disorders with radiculopathy, lumbar region; M51.17 Intervertebral disc disorders with radiculopathy, lumbosacral region; L40.52 Psoriatic arthritis mutilans; G43.909 Migraine, unspecified, not intractable, without status migrainosus; I73.00 Raynaud's syndrome without gangrene; Z79.891 Long term (current) use of opiate analgesic; Z79.899 Other long term (current) drug therapy; Z88.2 Allergy status to sulfonamides; Z88.5 Allergy status to narcotic agent; Z88.6 Allergy status to analgesic agent; Z88.8 Allergy status to other drugs, medicaments and biological substances
CPT/HCPCS: J1100

== ENCOUNTER → 2017-11-05 | Outpatient (CLI) | payer OTHER ==
[2017-11-05 12:47] LABS: BASO % 0.5 % (0.0-1.0); EOS # 0.1 10^3/uL (0.0-0.50); EOS % 1.7 % (0.0-3.0); HEMATOCRIT 44.2 % (36.0-47.0); HEMOGLOBIN 14.7 g/dl (12.0-16.0); IMMATURE GRANULOCYTE % 0.5 % (0-3.0); LYMPH # 1.7 10^3/uL (1.5-4.5); LYMPH % 29.3 % (24.0-44.0); MEAN CORPUSCULAR HEMOGLOBIN 31.7 pg (27.0-33.0); MEAN CORPUSCULAR HGB CONC 33.3 g/dl (32.0-36.5); MEAN CORPUSCULAR VOLUME 95.5 fl (80.0-96.0); MONO # 0.7 10^3/uL (0.0-0.8); MONO % 11.3 % (0.0-5.0); NEUTROPHILS # 3.4 10^3/uL (1.8-7.7); NEUTROPHILS % 56.7 % (36.0-66.0); PLATELET COUNT, AUTOMATED 246 10^3/uL (150-450); RED BLOOD COUNT 4.63 10^6/uL (4.00-5.40); RED CELL DISTRIBUTION WIDTH 13.6 % (11.5-14.5); WHITE BLOOD COUNT 5.9 10^3/uL (4.0-10.0)
[2017-11-05 13:05] LABS: ALBUMIN 3.9 GM/DL (3.2-5.2); ALT/SGPT 39 U/L (12-78); CREATININE FOR GFR 0.69 MG/DL (0.55-1.30); GLOMERULAR FILTRATION RATE > 60.0 (>45)
== END ==
LOC: M WUC 08:29
DX: M05.79 Rheumatoid arthritis with rheumatoid factor of multiple sites without organ or systems involvement (principal)

== ENCOUNTER → 2017-12-08 | Outpatient (CLI) | payer OTHER | LOC: M PAIN 09:15 | DX: M96.1 Postlaminectomy syndrome, not elsewhere classified (principal); M51.06 Intervertebral disc disorders with myelopathy, lumbar region; L40.52 Psoriatic arthritis mutilans; G43.909 Migraine, unspecified, not intractable, without status migrainosus; I73.00 Raynaud's syndrome without gangrene; E73.9 Lactose intolerance, unspecified; Z79.891 Long term (current) use of opiate analgesic; Z79.899 Other long term (current) drug therapy; Z88.2 Allergy status to sulfonamides; Z88.5 Allergy status to narcotic agent; Z88.6 Allergy status to analgesic agent; Z88.8 Allergy status to other drugs, medicaments and biological substances | CPT/HCPCS: G0463 ==

== ENCOUNTER → 2018-03-05 | Outpatient (CLI) | payer OTHER | LOC: M PAIN 09:00 | DX: M96.1 Postlaminectomy syndrome, not elsewhere classified (principal); M51.06 Intervertebral disc disorders with myelopathy, lumbar region; L40.52 Psoriatic arthritis mutilans; E73.9 Lactose intolerance, unspecified; Z79.899 Other long term (current) drug therapy; Z88.8 Allergy status to other drugs, medicaments and biological substances | CPT/HCPCS: G0463 ==

== ENCOUNTER → 2018-06-21 | Outpatient (CLI) | payer OTHER | LOC: M WHC 08:51 | DX: Z12.31 Encounter for screening mammogram for malignant neoplasm of breast (principal) | CPT/HCPCS: 77067 ==

== ENCOUNTER → 2018-06-24 | Outpatient (CLI) | payer OTHER | LOC: M PAIN 08:45 | DX: M96.1 Postlaminectomy syndrome, not elsewhere classified (principal); M51.06 Intervertebral disc disorders with myelopathy, lumbar region; L40.52 Psoriatic arthritis mutilans; G43.909 Migraine, unspecified, not intractable, without status migrainosus; I73.00 Raynaud's syndrome without gangrene; E73.9 Lactose intolerance, unspecified; Z79.899 Other long term (current) drug therapy; Z88.2 Allergy status to sulfonamides; Z88.5 Allergy status to narcotic agent; Z88.6 Allergy status to analgesic agent; Z88.8 Allergy status to other drugs, medicaments and biological substances | CPT/HCPCS: G0463 ==

== ENCOUNTER → 2018-09-28 | Outpatient (CLI) | payer OTHER ==
[~2018-09-28] MED LIST changes: +ASTE0.15; -BUPIVACAINE HCL 0.25% 30 ML VIAL As Ordered; +BUPIVACAINE HCL 0.25% 30 ML VIAL As Ordered ONE; +CALCCHW12 OR; +CETI10TA PO; +CLAR1TAB2 PO; +CLAR5CHW OR; +ESTR1TAB OR; +FOLI1TAB11 PO; -ISOVUE-M 300 61% 15ML VIAL (Q9967) As Ordered; +ISOVUE-M 300 61% 15ML VIAL (Q9967) As Ordered ONE; +LIDO5DIS EX; -LIDOCAINE 1% SDV INJ 30 ML VIAL As Ordered; +LIDOCAINE 1% SDV INJ 30 ML VIAL As Ordered ONE; +MAGN250T OR; +METH2.5T48 PO; +MULTIVIT PO; +OMEP20TA7 OR; +PROV5TAB OR; +SIMV20TA2 PO; +SM I100T OR; +SOMA350T OR; +SUDA30TA OR; +SUMA125TA OR; +VIST25CA PO; +VITA100067 PO; +[UNRECOGNIZED DRUG - OTHER]; -dexameTHASONE 10 MG/1 ML VIAL PRES.FREE (J1100) As Ordered; +dexameTHASONE 10 MG/1 ML VIAL PRES.FREE (J1100) As Ordered ONE; +remicade IV
--- NOTE | 2018-09-28 14:55 | REP ---
Partial lumbar spine series: 65 views . History: Injection procedure for pain. 1 minute 55 seconds of fluoroscopy time is reported. Findings: A sequence of 65 fluoroscopically obtained last image hold procedural spot radiographs of the lumbar spine document needle position and contrast injection associated with injection procedure. Electronically Signed by Cyrus Huynh MD 09/28/2018 02:47 P
--- NOTE | 2018-10-12 02:17 | ECWPNPC ---
PATIENT NAME: IFRAH LINDA : 1955 GENDER: FEMALE VISIT DATE: 09/28/2018 DISCHARGE DATE: 09/28/18 1427 VISIT LOCKED DATE TIME: PHYSICIAN: WAGNER SIMPSON MD RESOURCE: WAGNER SIMPSON MD REASON FOR APPOINTMENT 1. RIGHT( W/C) L4/5-L5/S1 TRANSFORAMINAL EPIDURAL STEROID INJECTION HISTORY OF PRESENT ILLNESS HISTORY OF PRESENT ILLNESS: PAIN THE PATIENT DESCRIBES THE PAIN... FALL RISK SCREENING: SCREENING :NO FALLS IN THE PAST YEAR CURRENT MEDICATIONS TAKING REMICADE 100 MG SOLUTION RECONSTITUTED DIRECTED INTRAVENOUS 500MG EVERY 8 WEEKS, NOTES: 08/17/18 TAKING MAGNESIUM 250 MG TABLET 1 TAB(S) ORALLY TWICE A DAY, NOTES: 09/28/18 AM TAKING CALCIUM 600 + D 600-400 MG-UNIT TABLET 1 TABLET ORALLY TWICE A DAY, NOTES: 09/28/18 AM TAKING MULTIVITAMINS OTC TABLET 1 TAB(S) ORALLY ONCE A DAY, NOTES: 09/28/18 AM TAKING IBUPROFEN 200 MG TABLET 3 TABLETS ORALLY NEEDED 3X/DAY, NOTES: NONE LATELY TAKING VITAMIN D 2000 UNIT TABLET 1 TAB(S) ORALLY ONCE A DAY, NOTES: AM TAKING LIDOCAINE 5 % PATCH 1 PATCH TO INTACT SKIN REMOVE AFTER 12 HOURS EXTERNALLY NEEDED, NOTES: NONE LATELY TAKING OMEPRAZOLE 20 MG CAPSULE DELAYED RELEASE 2 CAPSULES ORALLY ONCE DAILY NEEDED, NOTES: NONE LATELY TAKING FISH OIL 1000 MG CAPSULE 1 CAPSULE ORALLY BID, NOTES: 09/28/18 AM TAKING MECLIZINE HCL 25 MG TABLET 1 TAB ORALLY THREE TIMES DAILY NEEDED, NOTES: NONE LATELY TAKING ONDANSETRON 4 MG TABLET DISPERSIBLE 1 TABLET ON THE TONGUE AND ALLOW TO DISSOLVE ORALLY EVERY 8 HRS PRN, NOTES: NONE LATELAY TAKING FLONASE ALLERGY RELIEF 50 MCG/ACT SUSPENSION 1 SPRAY IN EACH NOSTRIL NASALLY ONCE A DAY, NOTES: NONE LATELY TAKING FOLIC ACID 1 MG TABLET 1 TABLET ORALLY ONCE A DAY, NOTES: 09/28/18 TAKING METHOTREXATE 2.5 MG TABLET 6 TABS ORALLY ONCE A WEEK, NOTES: 09/10/18 TAKING TAGAMET HB 200 MG TABLET 1 TABLET NEEDED ORALLY THE DAY BEFORE AND DAY AFTER REMICADE INJECTION, NOTES: 08/17/18 TAKING REFRESH OPTIVE 0.5-0.9 % SOLUTION 1 DROP INTO AFFECTED EYE NEEDED OPHTHALMIC QID, NOTES: 09/28/18 TAKING SOMA 350 MG TABLET 1 TABLET ORALLY FOR SPASMS AND PAIN Q8H TID MDD3, NOTES: 09/28/18 AM NOT-TAKING RESTASIS 0.05 % EMULSION 1 DROP INTO AFFECTED EYE OPHTHALMIC TWICE A DAY NOT-TAKING METAMUCIL 1 CAPFUL 1 SCOOP TWICE ADAY NEEDED, NOTES: NOT LATELY NOT-TAKING METHOTREXATE TABLET 6 TABLETS ORAL ONCE A WEEK, NOTES: DUPLICATE MEDICATION LIST REVIEWED AND RECONCILED WITH THE PATIENT PAST MEDICAL HISTORY FREQUENT SINUS INFECTIONS PSORIATIC RHEUMATOID ARTHRITIS (NICOLE) MIGRAINE H/A (OMAYRA FLYNN) LOW BACK SPASMS RAYNAUD'S ALLERGIES GOLD SHOTS: ITCHING: ALLERGY OTC CREAMS, LOTIONS AND DETERGENTS: RASH, ITCHING : ALLERGY ASPIRIN: HIVES: ALLERGY LACTOSE: TERRIBLE GAS: ALLERGY PLAQUENIL: EXTREME ITCHING, BLISTERS: ALLERGY TRAMADOL: CONSTIPATED, NAUSEA, EXTREMELY DRUGGED: ALLERGY LODINE: ITCHING: ALLERGY SULFA (FOR ALLERGY USE ONLY): RASH: ALLERGY SURGICAL HISTORY DISKECTOMY-BACK SURGERY 1997 CERVICAL CERCLAGE DURING COLONOSCOPY, DR. OVALLE. 07/2013 FAMILY HISTORY FATHER: COLORECTAL CANCER @ 83 PATERNAL GRAND MOTHER: BREAST CANCER IN HER 80'S SOCIAL HISTORY GENERAL: TOBACCO USE ARE YOU A:NONSMOKER BMI CARE GOAL FOLLOW-UP ABOVE NORMAL BMI FOLLOW-UPDIETARY NEEDS EDUCATION, WEIGHT MONITORING RECREATIONAL DRUG USE DRUG USE?NO CAFFEINE CAFFEINE USE?NO SEXUAL HX HAD SEX IN THE LAST 12 MONTHS (VAGINAL, ORAL, OR ANAL)?YES WITHMEN ONLY USE PROTECTION?NO HAVE YOU EVER HAD AN STD?NO LMP:POST MENOPAUSE HIV / HEP-C SCREENING HIV TEST OFFERED TO PATIENT:YES DATE OFFERED:06/19/2017 TEST ACCEPTED:NO REASON:PATIENT DECLINED LANGUAGE LANGUAGES SPOKEN:KYRGYZ LEARNING BARRIERS / SPECIAL NEEDS CHANGE FROM LAST VISIT?NO BARRIERS TO LEARNING?NO HEARING IMPAIRED?NO VISION IMPAIRED?YES :CORRECTIVE LENSES COGNITIVELY IMPAIRED?NO READINESS TO LEARN?YES LEARNING PREFERENCES?NO LEARNING CAPABILITIES PRESENT?YES EMOTIONAL BARRIERS?NO SPECIAL DEVICES?NO 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 DIET: REGULAR. EXERCISE: WALKS IS LIMITED DUE TO BACK ISSUES. MARITAL STATUS: . OTHERS AT HOME: SPOUSE. PAIN CLINIC PFS, CLERGY, PUBLIC HEALTH REFERRALS HAS THE PATIENT BEEN EDUCATED REGARDING HIS/HER PLAN OF CARE?YES HAS THE PATIENT BEEN EDUCATED REGARDING PAIN, THE RISK FOR PAIN, THE IMPORTANCE OF EFFECTIVE PAIN MANAGEMENT, AND THE PAIN ASSESSMENT PROCESS?YES ADVANCE DIRECTIVE ADVANCE DIRECTIVE DISCUSSED WITH PATIENT:YES DECLINED INFORMATION REVIEWED 03/05/18 0825 BVREVIEWED WITH PATIENT 06/24/18 0912 JS. HOSPITALIZATION/MAJOR DIAGNOSTIC PROCEDURE SURGERIES REVIEW OF SYSTEMS REVIEWED BY: PROVIDER: . CONSTITUTIONAL: ANY CHANGE IN YOUR MEDICAL CONDITION? NO . CHILLS NO . FEVER NO . INFECTION: DO YOU HAVE NEW INFECTIONS? YES, WENT ON ABX 09/11/18 FOR SINUSITIS, ABX FINISHED 09/22/18. . DO YOU HAVE HISTORY OF MRSA? NO . MUSCULOSKELETAL: ANY NEW PATTERNS OF PAIN OR NUMBNESS? NO . GASTROENTEROLOGY: ANY NEW CHANGE IN BOWEL CONTROL? NO . GENITOURINARY: ANY NEW CHANGE IN BLADDER CONTROL? NO . IS THERE A CHANCE YOU COULD BE ? NO . HEMATOLOGY/LYMPH: DO YOU TAKE ANY BLOOD THINNERS? (FOR EXAMPLE- COUMADIN, PLAVIX, AGGRENOX, PLATEL, PRADAXA, OR XARELTO) NO . WHEN WAS YOUR LAST DOSE? DATE: TIME: . NEUROLOGY: HAVE YOU FALLEN IN THE PAST 6 MONTHS? NO . ANY NEW EXTREMITY NUMBNESS OR WEAKNESS? NO . CARDIOLOGY: DO YOU HAVE A PACEMAKER OR DEFIBRILLATOR? NO . RESPIRATORY: HAVE YOU BEEN SICK IN THE PAST WEEK? NO . FEVER NO . FLU LIKE SYMPTOMS? NO . COUGH NO . INTEGUMENTARY: DO YOU HAVE ANY RASHES OR OPEN SORES? YES, PSORIASIS . ALLERGIC/IMMUNO: ARE YOU ALLERGIC TO SHELLFISH OR IV DYE? NO . ANY NEW ALLERGIES? NO . PSYCHIATRIC: DO YOU HAVE THOUGHTS OF HURTING YOURSELF OR SOMEONE ELSE? NO . ARE YOU ABUSED, NEGLECTED, OR IN AN UNSAFE ENVIRONMENT? NO . ENDOCRINOLOGY: ARE YOU DIABETIC? NO . OTHER: DO YOU NEED ANY PRESCRIPTIONS? NO . IF YES, PLEASE LIST: ____ . ANY NEW PROBLEMS WITH YOUR MEDICATIONS? NO . WHEN DID YOU LAST EAT? 09/28/18 0600 . WHEN DID YOU LAST DRINK? 09/28/18 1030 . WHAT DID YOU LAST DRINK? WATER . NAME OF PERSON DRIVING YOU HOME? BRANDY . DO YOU HAVE ANY OTHER QUESTIONS OR CONCERNS NO . VITAL SIGNS WT 164.6 LBS, HT 65.25 IN, BMI 27.18 INDEX, BP 132/70 MM HG, HR 74 /MIN, RR 16 /MIN, TEMP 97.4 F, OXYGEN SAT % 100, NA INITIALS MP 1208, REVIEWED BY: TRAVIS. REEMA INTERVERTEBRAL DISC DISORDER WITH RADICULOPATHY OF LUMBAR REGION - M51.16 (PRIMARY) INTERVERTEBRAL DISC DISORDER WITH RADICULOPATHY OF LUMBOSACRAL REGION - M51.17 PROCEDURES PN LUMBAR TRANSFORAMINAL BLOCKS PRE PROCEDURE DIAGNOSIS LUMBAR DISC DISORDER WITH RADICULOPATHY, LUMBOSACRAL DISC DISORDER WITH RADICULOPATHY POST PROCEDURE DIAGNOSIS LUMBAR DISC DISORDER WITH RADICULOPATHY, LUMBOSACRAL DISC DISORDER WITH RADICULOPATHY PROCEDURE RIGHT L4, RIGHT L5, AND RIGHT S1 TRANSFORAMINAL EPIDURAL STEROID INJECTION UNDER FLUOROSCOPIC GUIDANCE SURGEON DR WAGNER SIMPSON LEAK INSPECTOR NONE ANESTHESIA LOCAL PRE PROCEDURE NOTE PATIENT WITH HISTORY OF CHRONIC LOW BACK PAIN. I EVALUATE THE PATIENT AND REVIEWED THE CHART. I WENT OVER THE RISKS, ALTERNATIVES, AND BENEFITS ASSOCIATED WITH THIS PROCEDURE. THE PATIENT WOULD LIKE TO PROCEED AND GIVE CONSENT TO PERFORMED THE PROCEDURE. THE PATIENT DENIES UNEXPLAINABLE WEIGHT LOSS, FEVER, CHILLS, OR CHANGES IN URINARY OR BOWEL CONTROL DESCRIPTION OF PROCEDURE THE PATIENT WAS BROUGHT TO THE PROCEDURE ROOM AND PLACED IN THE PRONE POSITION. THE LUMBOSACRAL AREA WAS CLEANED WITH BETADINE SOLUTION AND DRAPED ASEPTICALLY. THE PROCEDURE WAS DONE UNDER STERILE CONDITIONS. I CHECKED LATERALITY AND THE LEVEL WHERE THE PROCEDURE WAS GOING TO BE PERFORMED WITH THE PATIENT AND THE SUPPORTING STAFF AT THE MOMENT OF THE TIME OUT IN THE PROCEDURE ROOM. UNDER FLUOROSCOPIC GUIDANCE, TARGETS WERE SELECTED AT THE RIGHT TRANSFORAMINAL OPENING OF L4, L5, AND S1. TARGET POINT WAS SELECTED AFTER LATERAL ROTATION AND TILT OF THE MAGNIFIER OF THE C-ARM. LIDOCAINE 0.5% WAS USED TO NUMB THE SKIN AND THE SUBCUTANEOUS TISSUE BELOW IT. AN EPIMED INTRODUCER 18-GAUGE WAS ADVANCED UNTIL WE WENT CLOSE TO THE SELECTED TRANSFORAMINAL OPENINGS. AFTER PROPER POSITION OF THE NEEDLES WAS ACHIEVED, A 22-GAUGE EPIMED NEEDLE WAS PLACED INSIDE OF THE INTRODUCER AND ADVANCED TO THE TRANSFORAMINAL OPENING OF THE SELECTED SITES. WHEN PROPER POSITION OF THE NEEDLE WAS ACHIEVED, ISOVUE M DYE 30%, 0.25 ML, WAS INJECTED SHOWING ADEQUATE SPREAD OF THE DYE. THIS WAS DONE UNDER DIGITAL SUBTRACTION AND ANGIOGRAPHY. THERE WAS NO VASCULAR UPDATE. THEN, A SOLUTION OF 2 ML OF BUPIVACAINE 0.25% AND DEXAMETHASONE 10 MG WAS INJECTED AT EACH SITE. THERE WAS NO EVIDENCE OF BLOOD, PARESTHESIA OR CEREBROSPINAL FLUID DURING THE PROCEDURE. THE PATIENT WAS SENT TO THE RECOVERY ROOM. THE PATIENT WAS MOVING THE EXTREMITIES AND DOING WELL. THERE WAS NO COMPLICATION DURING THE PROCEDURE. FLUOROSCOPY TIME WAS 115 SECONDS POST PROCEDURE NOTE THE PROCEDURE DONE WAS DISCUSSED WITH THE PATIENT. THE PATIENT WILL BE SEEN IN A FOLLOW UP IN THE NEXT FEW WEEKS. INSTRUCTIONS WERE GIVEN, QUESTIONS WERE ANSWERED, AND THE PATIENT EXPRESSED UNDERSTANDING AND AGREES WITH THE PLAN. I, JO ADAMS, DOCUMENTED THE ABOVE INFORMATION ACTING A SCRIBE FOR DR. SIMPSON. I HAVE REVIEWED THE ABOVE DOCUMENT, WRITTEN BY JO ADAMS SCRIBBryson AND I VERIFY THAT IT IS ACCURATE. PN WORKMANS' COMP OPINION IN YOUR OPINION, WAS THE INCIDENT THAT THE PATIENT DESCRIBED THE COMPETENT MEDICAL CAUSE OF THIS INJURY/ILLNESS? YES ARE THE PATIENT'S COMPLAINTS CONSISTENT WITH HIS/HER HISTORY OF THE INJURY/ILLNESS? YES IS THE PATIENT'S HISTORY OF THE INJURY/ILLNESS CONSISTENT WITH YOUR OBJECTIVE FINDING? YES WHAT IS THE PERCENTAGE OF TEMPORARY IMPAIRMENT? MODERATE TO MARKED = 66.7% IS THE PATIENT WORKING? NO DOCTOR ON SITE: WAGNER HOPE MD DIAGNOSTIC IMAGING [facility] FLUORO GUIDE SPINE INJECTION (PAIN)[id number] PROCEDURE CODES 6045F RADXPS IN END [id number] PXD 14603 INJ FORAMEN EPIDURAL L/S, MODIFIERS: RT [address] INJ FORAMEN EPIDURAL ADD-ON, UNITS: 2.00 , MODIFIERS: RT DISPOSITION & COMMUNICATION FOLLOW UP 3 WEEKS ELECTRONICALLY SIGNED BY WAGNER SIMPSON MD, MD ON 10/11/2018 AT 01:25 PM EST DISCLAIMER : THIS IS A VISIT SUMMARY EXTRACTED FROM THE [employer] CHART. IT IS NOT A COPY OF THE [employer] PROGRESS NOTE. MTDD
== END ==
LOC: M PAIN 13:00
PROVIDERS: ATTEND Anesthesiology
DX: M51.16 Intervertebral disc disorders with radiculopathy, lumbar region (principal); M51.17 Intervertebral disc disorders with radiculopathy, lumbosacral region; M06.9 Rheumatoid arthritis, unspecified; G43.909 Migraine, unspecified, not intractable, without status migrainosus; I73.00 Raynaud's syndrome without gangrene; M62.830 Muscle spasm of back; Z79.899 Other long term (current) drug therapy; Z88.6 Allergy status to analgesic agent; Z88.2 Allergy status to sulfonamides; Z88.8 Allergy status to other drugs, medicaments and biological substances
CPT/HCPCS: 64483; 64484; J1100; Q9967

== ENCOUNTER → 2018-11-25 | Outpatient (CLI) | payer OTHER ==
[~2018-11-25] MED LIST changes: -BUPIVACAINE HCL 0.25% 30 ML VIAL As Ordered ONE; -ISOVUE-M 300 61% 15ML VIAL (Q9967) As Ordered ONE; -LIDOCAINE 1% SDV INJ 30 ML VIAL As Ordered ONE; -dexameTHASONE 10 MG/1 ML VIAL PRES.FREE (J1100) As Ordered ONE
--- NOTE | 2018-12-11 02:09 | ECWPNPC ---
PATIENT NAME: IFRAH LINAD : 1955 GENDER: FEMALE VISIT DATE: 11/25/2018 DISCHARGE DATE: 11/25/18 1223 VISIT LOCKED DATE TIME: PHYSICIAN: TEAGAN CALVILLO RESOURCE: TEAGAN CALVILLO REASON FOR APPOINTMENT 1. W/C POST LESI HISTORY OF PRESENT ILLNESS HISTORY OF PRESENT ILLNESS: PAIN THE PATIENT DESCRIBES THE PAIN... THE PATIENT DESCRIBES THE PAIN... THE PATIENT DESCRIBES THE PAIN... THE PATIENT DESCRIBES THE PAIN... THE PATIENT DESCRIBES THE PAIN... THE PATIENT DESCRIBES THE PAIN... HERE FOR POST PROCEDURE F/U.HAD RIGHT L4/5-L5/S1 TRANSFORAMINAL STEROID INJECTION ON 09/28/18.REPORTING IMPROVED TOLERANCE TO PHYSICAL ACTIVITY AND ADL'S.RATING PAIN VAS 3/10.THIS A WORK RELATED INJURY DOI FEBRUARY 1997.CURRENT CHRONIC PAIN MEDICATION FOR WORK RELATED INJURY:SOMA 350MG TID.FINDS THIS MEDICINE EFFECTIVE IN REDUCING PAIN AND KEEPING HER FUNCTIONAL.DENIES SIDE EFFECTS. FALL RISK SCREENING: SCREENING : NO FALLS IN THE PAST YEAR. CURRENT MEDICATIONS TAKING REMICADE 100 MG SOLUTION RECONSTITUTED DIRECTED INTRAVENOUS 500MG EVERY 8 WEEKS TAKING MAGNESIUM 250 MG TABLET 1 TAB(S) ORALLY TWICE A DAY TAKING CALCIUM 600 + D 600-400 MG-UNIT TABLET 1 TABLET ORALLY TWICE A DAY TAKING MULTIVITAMINS OTC TABLET 1 TAB(S) ORALLY ONCE A DAY TAKING IBUPROFEN 200 MG TABLET 3 TABLETS ORALLY NEEDED 3X/DAY TAKING VITAMIN D 2000 UNIT TABLET 1 TAB(S) ORALLY ONCE A DAY TAKING LIDOCAINE 5 % PATCH 1 PATCH TO INTACT SKIN REMOVE AFTER 12 HOURS EXTERNALLY NEEDED TAKING OMEPRAZOLE 20 MG CAPSULE DELAYED RELEASE 2 CAPSULES ORALLY ONCE DAILY NEEDED TAKING FISH OIL 1000 MG CAPSULE 1 CAPSULE ORALLY BID TAKING MECLIZINE HCL 25 MG TABLET 1 TAB ORALLY THREE TIMES DAILY NEEDED TAKING ONDANSETRON 4 MG TABLET DISPERSIBLE 1 TABLET ON THE TONGUE AND ALLOW TO DISSOLVE ORALLY EVERY 8 HRS PRN TAKING FLONASE ALLERGY RELIEF 50 MCG/ACT SUSPENSION 1 SPRAY IN EACH NOSTRIL NASALLY ONCE A DAY TAKING FOLIC ACID 1 MG TABLET 1 TABLET ORALLY ONCE A DAY TAKING METHOTREXATE 2.5 MG TABLET 6 TABS ORALLY ONCE A WEEK TAKING TAGAMET HB 200 MG TABLET 1 TABLET NEEDED ORALLY THE DAY BEFORE AND DAY AFTER REMICADE INJECTION TAKING REFRESH OPTIVE 0.5-0.9 % SOLUTION 1 DROP INTO AFFECTED EYE NEEDED OPHTHALMIC QID TAKING SOMA 350 MG TABLET 1 TABLET ORALLY FOR SPASMS AND PAIN Q8H TID MDD3 TAKING METAMUCIL 1 CAPFUL 1 SCOOP TWICE ADAY NEEDED, NOTES: NOT LATELY DISCONTINUED RESTASIS 0.05 % EMULSION 1 DROP INTO AFFECTED EYE OPHTHALMIC TWICE A DAY DISCONTINUED METHOTREXATE TABLET 6 TABLETS ORAL ONCE A WEEK, NOTES: DUPLICATE MEDICATION LIST REVIEWED AND RECONCILED WITH THE PATIENT PAST MEDICAL HISTORY FREQUENT SINUS INFECTIONS PSORIATIC RHEUMATOID ARTHRITIS (NICOLE) MIGRAINE H/A (OMAYRA FLYNN) LOW BACK SPASMS RAYNAUD'S ALLERGIES GOLD SHOTS: ITCHING - ALLERGY OTC CREAMS, LOTIONS AND DETERGENTS: RASH, ITCHING - ALLERGY ASPIRIN: HIVES - ALLERGY LACTOSE: TERRIBLE GAS - ALLERGY PLAQUENIL: EXTREME ITCHING, BLISTERS - ALLERGY TRAMADOL: CONSTIPATED, NAUSEA, EXTREMELY DRUGGED - ALLERGY LODINE: ITCHING - ALLERGY SULFA (FOR ALLERGY USE ONLY): RASH - ALLERGY SURGICAL HISTORY DISKECTOMY-BACK SURGERY 1997 CERVICAL CERCLAGE DURING COLONOSCOPY, DR. OVALLE. 07/2013 FAMILY HISTORY FATHER: 86 YRS, COLORECTAL CANCER @ 83 MOTHER: ALIVE 88 YRS PATERNAL GRAND MOTHER: BREAST CANCER IN HER 80'S 3DAUGHTER(S) - HEALTHY. SOCIAL HISTORY GENERAL: TOBACCO USE ARE YOU A:NONSMOKER BMI CARE GOAL FOLLOW-UP ABOVE NORMAL BMI FOLLOW-UPDIETARY NEEDS EDUCATION, WEIGHT MONITORING ALCOHOL SCREENING DID YOU HAVE A DRINK CONTAINING ALCOHOL IN THE PAST YEAR?NO POINTS0 INTERPRETATIONNEGATIVE RECREATIONAL DRUG USE DRUG USE?NO CAFFEINE CAFFEINE USE?NO SEXUAL HX HAD SEX IN THE LAST 12 MONTHS (VAGINAL, ORAL, OR ANAL)?YES WITHMEN ONLY USE PROTECTION?NO HAVE YOU EVER HAD AN STD?NO LMP:POST MENOPAUSE HIV / HEP-C SCREENING HIV TEST OFFERED TO PATIENT:YES DATE OFFERED:06/19/2017 TEST ACCEPTED:NO REASON:PATIENT DECLINED LANGUAGE LANGUAGES SPOKEN:CROATIAN EDUCATION LEVEL OF EDUCATION:NOT FINISHED COLLEGE LEARNING BARRIERS / SPECIAL NEEDS CHANGE FROM LAST VISIT?NO BARRIERS TO LEARNING?NO HEARING IMPAIRED?NO VISION IMPAIRED?YES :CORRECTIVE LENSES COGNITIVELY IMPAIRED?NO READINESS TO LEARN?YES LEARNING PREFERENCES?NO LEARNING CAPABILITIES PRESENT?YES EMOTIONAL BARRIERS?NO SPECIAL DEVICES?NO DOMESTIC VIOLENCE DO YOU FEEL SAFE IN YOUR ENVIRONMENT?YES 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 DIET: REGULAR. EXERCISE: WALKS IS LIMITED DUE TO BACK ISSUES. MARITAL STATUS: . OTHERS AT HOME: SPOUSE. PAIN CLINIC PFS, CLERGY, PUBLIC HEALTH REFERRALS HAS THE PATIENT BEEN EDUCATED REGARDING HIS/HER PLAN OF CARE?YES HAS THE PATIENT BEEN EDUCATED REGARDING PAIN, THE RISK FOR PAIN, THE IMPORTANCE OF EFFECTIVE PAIN MANAGEMENT, AND THE PAIN ASSESSMENT PROCESS?YES ADVANCE DIRECTIVE ADVANCE DIRECTIVE DISCUSSED WITH PATIENT:YES 11/25/18 PT DOES NOT HAVE ANY ADVANCED DIREDCTIVES AND SHE DECLINED INFORMATION ON HCP AT THIS TIME. AD REVIEWED 03/05/18 0853 BVREVIEWED WITH PATIENT 06/24/18 0912 JS11/25/18 REVIEWED WITH PT. AD. HOSPITALIZATION/MAJOR DIAGNOSTIC PROCEDURE SURGERIES REVIEW OF SYSTEMS REVIEWED BY: PROVIDER: TEAGAN STEVE . CONSTITUTIONAL: ANY CHANGE IN YOUR MEDICAL CONDITION? NO . CHILLS NO . FEVER NO . INFECTION: DO YOU HAVE NEW INFECTIONS? NO . DO YOU HAVE HISTORY OF MRSA? NO . MUSCULOSKELETAL: ANY NEW PATTERNS OF PAIN OR NUMBNESS? NO . GASTROENTEROLOGY: ANY NEW CHANGE IN BOWEL CONTROL? NO . GENITOURINARY: ANY NEW CHANGE IN BLADDER CONTROL? NO . IS THERE A CHANCE YOU COULD BE ? NO . HEMATOLOGY/LYMPH: DO YOU TAKE ANY BLOOD THINNERS? (FOR EXAMPLE- COUMADIN, PLAVIX, AGGRENOX, PLATEL, PRADAXA, OR XARELTO) NO . WHEN WAS YOUR LAST DOSE? DATE: TIME: . NEUROLOGY: HAVE YOU FALLEN IN THE PAST 12 MONTHS? NO . ANY NEW EXTREMITY NUMBNESS OR WEAKNESS? NO . CARDIOLOGY: DO YOU HAVE A PACEMAKER OR DEFIBRILLATOR? NO . RESPIRATORY: HAVE YOU BEEN SICK IN THE PAST WEEK? NO . FEVER NO . FLU LIKE SYMPTOMS? NO . COUGH NO . INTEGUMENTARY: DO YOU HAVE ANY RASHES OR OPEN SORES? YES, PSORIOSIS . ALLERGIC/IMMUNO: ARE YOU ALLERGIC TO IV DYE? NO . ANY NEW ALLERGIES? NO . PSYCHIATRIC: DO YOU HAVE THOUGHTS OF HURTING YOURSELF OR SOMEONE ELSE? NO . ARE YOU ABUSED, NEGLECTED, OR IN AN UNSAFE ENVIRONMENT? NO . ENDOCRINOLOGY: ARE YOU DIABETIC? NO . OTHER: DO YOU NEED ANY PRESCRIPTIONS? NO . IF YES, PLEASE LIST: ____ . ANY NEW PROBLEMS WITH YOUR MEDICATIONS? NO . WHEN DID YOU LAST EAT? ____ . WHEN DID YOU LAST DRINK? ____ . WHAT DID YOU LAST DRINK? ____ . NAME OF PERSON DRIVING YOU HOME? ____ . DO YOU HAVE ANY OTHER QUESTIONS OR CONCERNS NO . VITAL SIGNS WT 166.4 LBS, HT 65.25 IN, BMI 27.48 INDEX, BP 124/68 MM HG, HR 76 /MIN, RR 16 /MIN, TEMP 97.0 F, OXYGEN SAT % 96%, SAFE IN ENV? (Y/N) Y, NA INITIALS AW 1145, REVIEWED BY: AD. EXAMINATION GENERAL EXAMINATION: GENERAL APPEARANCE:AWAKE,ALERT ,PLEAASANT . PSYCHAFFECT NORMAL . LUNGS:LUNG GALLARDO ARE CLEAR TO AUSCULTATION BILATERALLY. GOOD MOVEMENT OF AIR . HEART:S1, S2 IN A REGULAR RATE AND RHYTHM. NO SIGNIFICANT MURMURS, RUBS OR GALLOPS NOTED . ASSESSMENTS POST LAMINECTOMY SYNDROME - M96.1 (PRIMARY) TREATMENT POST LAMINECTOMY SYNDROME NOTES: CONTINUE CURRENT MEDICATION. PROCEDURES PN WORKMANS' COMP OPINION IN YOUR OPINION, WAS THE INCIDENT THAT THE PATIENT DESCRIBED THE COMPETENT MEDICAL CAUSE OF THIS INJURY/ILLNESS? YES ARE THE PATIENT'S COMPLAINTS CONSISTENT WITH HIS/HER HISTORY OF THE INJURY/ILLNESS? YES IS THE PATIENT'S HISTORY OF THE INJURY/ILLNESS CONSISTENT WITH YOUR OBJECTIVE FINDING? YES WHAT IS THE PERCENTAGE OF TEMPORARY IMPAIRMENT? MODERATE TO MARKED = 66.7% IS THE PATIENT WORKING? NO DOCTOR ON SITE: WAGNER HOPE MD PROCEDURE CODES FA211 ESTABILISHED PATIENT [facility] FAC[facility] CHARGE DISPOSITION & COMMUNICATION FOLLOW UP 3 MONTHS (REASON: MED MGMNT) ELECTRONICALLY SIGNED BY EVI CHRISTENSEN ON 12/10/2018 AT 12:45 PM EDT DISCLAIMER : THIS IS A VISIT SUMMARY EXTRACTED FROM THE [email or web address] CHART. IT IS NOT A COPY OF THE [email or web address] PROGRESS NOTE. [place]
== END ==
LOC: M PAIN 11:30
PROVIDERS: ATTEND Nurse Practitioner Family
DX: M96.1 Postlaminectomy syndrome, not elsewhere classified (principal); L40.52 Psoriatic arthritis mutilans; G43.909 Migraine, unspecified, not intractable, without status migrainosus; I73.00 Raynaud's syndrome without gangrene; Z79.899 Other long term (current) drug therapy; Z88.2 Allergy status to sulfonamides; Z88.5 Allergy status to narcotic agent; Z88.6 Allergy status to analgesic agent; Z88.7 Allergy status to serum and vaccine; Z88.8 Allergy status to other drugs, medicaments and biological substances; Z91.011 Allergy to milk products

== ENCOUNTER → 2019-03-01 | Outpatient (CLI) | payer OTHER | LOC: M PAIN 08:30 | PROVIDERS: ATTEND Nurse Practitioner Family | DX: M96.1 Postlaminectomy syndrome, not elsewhere classified (principal); Z79.899 Other long term (current) drug therapy; Z88.2 Allergy status to sulfonamides ==

== ENCOUNTER → 2019-03-15 | Outpatient (CLI) | payer OTHER ==
--- NOTE | 2019-03-15 12:22 | REP ---
REASON: Pain. Prior standing bilateral, none. Standing bilateral AP views of the knees shows symmetric medial and lateral compartments without prominent marginal osteophytosis. The bone mineralization appears appropriate. IMPRESSION: No abnormalities noted. Electronically Signed by Morgan Ferrell DO 03/15/2019 04:09 P
--- NOTE | 2019-03-15 12:24 | REP ---
BILATERAL KNEE SERIES: REASON: Knee pain. RIGHT KNEE: FINDINGS: The compartments are symmetric and relatively well maintained. There is no acute fracture or destructive osseous lesion. LEFT KNEE: FINDINGS: The compartments are symmetric and relatively well maintained. There is no acute fracture or destructive osseous lesion. Electronically Signed by Morgan Ferrell DO 03/15/2019 04:11 P
[2019-03-15 15:01] LABS: BASO # 0.1 10^3/uL (0.0-0.2); BASO % 1.1 % (0.0-1.0); EOS # 0.2 10^3/uL (0.0-0.50); EOS % 4.1 % (0.0-3.0); HEMATOCRIT 42.7 % (36.0-47.0); LYMPH # 1.8 10^3/uL (1.5-4.5); LYMPH % 40.3 % (24.0-44.0); MEAN CORPUSCULAR HEMOGLOBIN 31.1 pg (27.0-33.0); MEAN CORPUSCULAR HGB CONC 32.8 g/dl (32.0-36.5); MEAN CORPUSCULAR VOLUME 94.9 fl (80.0-96.0); MONO # 0.6 10^3/uL (0.0-0.8); MONO % 13.5 % (0.0-5.0); NEUTROPHILS # 1.8 10^3/uL (1.8-7.7); NEUTROPHILS % 40.8 % (36.0-66.0); PLATELET COUNT, AUTOMATED 242 10^3/uL (150-450); WHITE BLOOD COUNT 4.4 10^3/uL (4.0-10.0)
[2019-03-15 15:08] LABS: ALBUMIN 3.9 GM/DL (3.2-5.2); ALT/SGPT 35 U/L (12-78); BILIRUBIN,TOTAL 0.3 MG/DL (0.2-1.0); BLOOD UREA NITROGEN 18 MG/DL (7-18); CALCIUM LEVEL 8.9 MG/DL (8.8-10.2); CARBON DIOXIDE LEVEL 32 MEQ/L (21-32); CHLORIDE LEVEL 107 MEQ/L (98-107); CREATININE FOR GFR 0.68 MG/DL (0.55-1.30); GLOMERULAR FILTRATION RATE > 60.0 (>45); GLUCOSE, FASTING 82 MG/DL (70-100); POTASSIUM SERUM 4.7 MEQ/L (3.5-5.1); RHEUMATOID FACTOR QUANT < 10.0 IU/ML (<15.0); SODIUM LEVEL 141 MEQ/L (136-145); TOTAL PROTEIN 7.5 GM/DL (6.4-8.2)
[2019-03-15 15:22] LABS: ERYTHROCYTE SEDIMENTATION RATE 18 mm/hr (0-30)
[2019-03-16 11:31] LABS: HEPATITIS C VIRUS ABY INDEX 0.1 INDEX (<0.8)
[2019-03-16 11:32] LABS: HEPATITIS B CORE ANTIBODY IGM NEGATIVE (NEGATIVE)
[2019-03-19 00:09] LABS: CYCLIC CITRULLINATED PEPTIDE 4 units (0-19); HEPATITIS BE ANTIBODY Negative (Negative); HEPATITIS BE ANTIGEN Negative (Negative)
== END ==
LOC: M WUC 11:03
PROVIDERS: ATTEND Internal Medicine Rheumatology
DX: Z51.81 Encounter for therapeutic drug level monitoring (principal); Z79.899 Other long term (current) drug therapy; M25.569 Pain in unspecified knee; M06.9 Rheumatoid arthritis, unspecified

== ENCOUNTER → 2019-04-04 | Outpatient (REF) | payer OTHER ==
[2019-04-05 09:39] LABS: HEPATITIS B SURFACE ANTIBODY NEGATIVE (POSITIVE); HEPATITIS B SURFACE ANTIGEN NEGATIVE (NEGATIVE)
== END ==
LOC: M LABWUC 09:25
PROVIDERS: ATTEND Internal Medicine Rheumatology
DX: Z79.899 Other long term (current) drug therapy (principal); M06.9 Rheumatoid arthritis, unspecified

== ENCOUNTER 2019-04-08 08:02 | Outpatient (CLI) | payer OTHER ==
[~2019-04-08] VITALS: Ht 167.6 cm; Wt 77.5 kg
[2019-04-08 08:05] VITALS: BP 118/58
[2019-04-08] MEDS ORDERED: NS 1,000 ML IV SCH (08:30)
[2019-04-08] MEDS ORDERED: FILTER 1.2 MICRON (ADULT TPN/MANNITOL/REMICADE) XX ONE (08:30)
[2019-04-08] MEDS ORDERED: ACETAMINOPHEN 650MG PO PRIOR TO INFUSION PO ONE (08:30)
[2019-04-08] MEDS ORDERED: INFLIXIMAB BIOSIMILAR 400 MG in NS 210 ML IV ONE (09:00)
[2019-04-08 11:35] VITALS: BP 120/58
== END 2019-04-08 11:35 | disposition home or self-care (01) ==
LOC: M INFU 08:02
PROVIDERS: ATTEND Internal Medicine Rheumatology
DX: M06.9 Rheumatoid arthritis, unspecified (principal); Z88.2 Allergy status to sulfonamides; Z88.8 Allergy status to other drugs, medicaments and biological substances
CPT/HCPCS: 96413; 96415; Q5103

== ENCOUNTER → 2019-05-17 | Outpatient (CLI) | payer OTHER ==
[2019-05-17 13:51] LABS: EOS # 0.6 10^3/uL (0.0-0.5); EOS % 14.5 % (0.0-3.0); HEMATOCRIT 41.2 % (36.0-47.0); HEMOGLOBIN 13.8 g/dl (12.0-15.5); LYMPH # 1.5 10^3/uL (1.5-5.0); LYMPH % 37.4 % (24.0-44.0); MEAN CORPUSCULAR HEMOGLOBIN 32.5 pg (27.0-33.0); MEAN CORPUSCULAR HGB CONC 33.5 g/dl (32.0-36.5); MEAN CORPUSCULAR VOLUME 96.9 fl (80.0-96.0); MONO # 0.6 10^3/uL (0.0-0.8); MONO % 13.7 % (0.0-5.0); NEUTROPHILS # 1.3 10^3/uL (1.5-8.5); NEUTROPHILS % 33.4 % (36.0-66.0); PLATELET COUNT, AUTOMATED 220 10^3/uL (150-450); RED BLOOD COUNT 4.25 10^6/uL (4.00-5.40)
[2019-05-17 14:02] LABS: ALBUMIN 3.5 GM/DL (3.2-5.2); ALT/SGPT 38 U/L (12-78); BILIRUBIN,TOTAL 0.4 MG/DL (0.2-1.0); BLOOD UREA NITROGEN 19 MG/DL (7-18); C REACTIVE PROTEIN QUANTITATIV < 0.30 MG/DL (0.00-0.30); CALCIUM LEVEL 9.6 MG/DL (8.8-10.2); CARBON DIOXIDE LEVEL 30 MEQ/L (21-32); CHLORIDE LEVEL 107 MEQ/L (98-107); GLOMERULAR FILTRATION RATE > 60.0 (>45); GLUCOSE, FASTING 76 MG/DL (70-100); POTASSIUM SERUM 4.7 MEQ/L (3.5-5.1); SODIUM LEVEL 142 MEQ/L (136-145); TOTAL PROTEIN 6.8 GM/DL (6.4-8.2)
[2019-05-17 14:22] LABS: ERYTHROCYTE SEDIMENTATION RATE 17 mm/hr (0-30)
== END ==
LOC: M WUC 09:28
PROVIDERS: ATTEND Internal Medicine Rheumatology
DX: M06.9 Rheumatoid arthritis, unspecified (principal)

== ENCOUNTER → 2019-05-31 | Outpatient (CLI) | payer OTHER ==
--- NOTE | 2019-06-14 02:33 | ECWPNPC ---
PATIENT NAME: IFRAH LINDA : 1955 GENDER: FEMALE VISIT DATE: 05/31/2019 DISCHARGE DATE: 05/31/19935 VISIT LOCKED DATE TIME: PHYSICIAN: TEAGAN CALVILLO RESOURCE: TEAGAN CALVILLO REASON FOR APPOINTMENT 1. W/C MED MGMT HISTORY OF PRESENT ILLNESS HISTORY OF PRESENT ILLNESS: PAIN THE PATIENT DESCRIBES THE PAIN... THE PATIENT DESCRIBES THE PAIN... THE PATIENT DESCRIBES THE PAIN... THE PATIENT DESCRIBES THE PAIN... THE PATIENT DESCRIBES THE PAIN... THE PATIENT DESCRIBES THE PAIN... THE PATIENT DESCRIBES THE PAIN... THE PATIENT DESCRIBES THE PAIN... HERE FOR F/U OF CHRONIC RIGHT LOW BACK WITH RIGHT LEG RADICULAR SYMPTOMSTHIS A WORK RELATED INJURY DOI FEBRUARY 1997.SHE IS HAVING A SEVERE FLARE UP THE PAST 2 WEEKS.RATING PAIN VAS 8/10.CURRENT CHRONIC PAIN MEDICATION FOR WORK RELATED INJURY:SOMA 350MG TID.FINDS THIS MEDICINE EFFECTIVE IN REDUCING PAIN AND KEEPING HER FUNCTIONAL.DENIES SIDE EFFECTS. FALL RISK SCREENING: SCREENING :NO FALLS REPORTED IN THE LAST YEAR CURRENT MEDICATIONS TAKING MAGNESIUM 250 MG TABLET 1 TAB(S) ORALLY TWICE A DAY TAKING CALCIUM 600 + D 600-400 MG-UNIT TABLET 1 TABLET ORALLY TWICE A DAY TAKING MULTIVITAMINS OTC TABLET 1 TAB(S) ORALLY ONCE A DAY TAKING IBUPROFEN 200 MG TABLET 3 TABLETS ORALLY NEEDED 3X/DAY TAKING VITAMIN D 2000 UNIT TABLET 1 TAB(S) ORALLY ONCE A DAY TAKING LIDOCAINE 5 % PATCH 1 PATCH TO INTACT SKIN REMOVE AFTER 12 HOURS EXTERNALLY NEEDED, NOTES: RARELY TAKING FISH OIL 1000 MG CAPSULE 1 CAPSULE ORALLY BID TAKING MECLIZINE HCL 25 MG TABLET 1 TAB ORALLY THREE TIMES DAILY NEEDED, NOTES: RARELY TAKING ONDANSETRON 4 MG TABLET DISPERSIBLE 1 TABLET ON THE TONGUE AND ALLOW TO DISSOLVE ORALLY EVERY 8 HRS PRN TAKING TAGAMET HB 200 MG TABLET 1 TABLET NEEDED ORALLY THE DAY BEFORE AND DAY AFTER REMICADE INJECTION TAKING REFRESH OPTIVE 0.5-0.9 % SOLUTION 1 DROP INTO AFFECTED EYE NEEDED OPHTHALMIC QID TAKING METAMUCIL 1 CAPFUL 1 SCOOP TWICE ADAY NEEDED, NOTES: VERY RARELY TAKING SOMA 350 MG TABLET 1 TABLET ORALLY FOR SPASMS AND PAIN Q8H TID MDD3 TAKING INFLIXIMAB-DYYB 100 MG SOLUTION RECONSTITUTED DIRECTED INTRAVENOUS , NOTES: AKA: INFLECTRA TAKING METHOTREXATE 2.5 MG TABLET 6 TABS ORALLY ONCE A WEEK, NOTES: THURSDAY TAKING FOLIC ACID 1 MG TABLET 1 TABLET ORALLY ONCE A DAY DISCONTINUED OMEPRAZOLE 20 MG CAPSULE DELAYED RELEASE 2 CAPSULES ORALLY ONCE DAILY NEEDED DISCONTINUED FLONASE ALLERGY RELIEF 50 MCG/ACT SUSPENSION 1 SPRAY IN EACH NOSTRIL NASALLY ONCE A DAY MEDICATION LIST REVIEWED AND RECONCILED WITH THE PATIENT PAST MEDICAL HISTORY FREQUENT SINUS INFECTIONS PSORIATIC RHEUMATOID ARTHRITIS [facility] MIGRAINE H/A (OMAYRA FLYNN) LOW BACK SPASMS RAYNAUD'S DRY EYE ALLERGIES GOLD SHOTS: ITCHING - ALLERGY OTC CREAMS, LOTIONS AND DETERGENTS: RASH, ITCHING - ALLERGY ASPIRIN: HIVES - ALLERGY LACTOSE: TERRIBLE GAS - ALLERGY PLAQUENIL: EXTREME ITCHING, BLISTERS - ALLERGY TRAMADOL: CONSTIPATED, NAUSEA, EXTREMELY DRUGGED - ALLERGY LODINE: ITCHING - ALLERGY SULFA (FOR ALLERGY USE ONLY): RASH - ALLERGY SURGICAL HISTORY DISKECTOMY-BACK SURGERY 1997 CERVICAL CERCLAGE DURING COLONOSCOPY, DR. OVALLE. 07/2013 FAMILY HISTORY FATHER: 86 YRS, COLORECTAL CANCER @ 83 MOTHER: ALIVE 88 YRS DAUGHTER(S): PSORIATIC ARTHRITIS PATERNAL GRAND MOTHER: BREAST CANCER IN HER 80'S 3DAUGHTER(S) - HEALTHY. SOCIAL HISTORY GENERAL: TOBACCO USE ARE YOU A:NONSMOKER HIV / HEP-C SCREENING HIV TEST OFFERED TO PATIENT:YES DATE OFFERED:06/19/2017 TEST ACCEPTED:NO REASON:PATIENT DECLINED OTHERS AT HOME: SPOUSE. EDUCATION LEVEL OF EDUCATION:NOT FINISHED COLLEGE DIET: REGULAR. LANGUAGE LANGUAGES SPOKEN:PORTUGUESE DOMESTIC VIOLENCE DO YOU FEEL SAFE IN YOUR ENVIRONMENT?YES BMI CARE GOAL FOLLOW-UP ABOVE NORMAL BMI FOLLOW-UPDIETARY NEEDS EDUCATION, WEIGHT MONITORING RECREATIONAL DRUG USE DRUG USE?NO EXERCISE: WALKS IS LIMITED DUE TO BACK ISSUES. LEARNING BARRIERS / SPECIAL NEEDS CHANGE FROM LAST VISIT?NO BARRIERS TO LEARNING?NO HEARING IMPAIRED?NO VISION IMPAIRED?YES COGNITIVELY IMPAIRED?NO :CORRECTIVE LENSES READINESS TO LEARN?YES LEARNING PREFERENCES?NO LEARNING CAPABILITIES PRESENT?YES EMOTIONAL BARRIERS?NO SPECIAL DEVICES?NO PAIN CLINIC PFS, CLERGY, PUBLIC HEALTH REFERRALS HAS THE PATIENT BEEN EDUCATED REGARDING HIS/HER PLAN OF CARE?YES HAS THE PATIENT BEEN EDUCATED REGARDING PAIN, THE RISK FOR PAIN, THE IMPORTANCE OF EFFECTIVE PAIN MANAGEMENT, AND THE PAIN ASSESSMENT PROCESS?YES LATEX QUESTIONNAIRE LATEX ALLERGY : HAVE YOU EVER DEVELOPED ANY TYPE OF REACTION AFTER HANDLING LATEX PRODUCTS SUCH RUBBER GLOVES, CONDOMS, DIAPHRAGMS, BALLOONS, SOCKS, OR UNDERWEAR?NO LATEX ALLERGY : HAVE YOU EVER DEVELOPED ANY TYPE OF REACTION DURING OR AFTER DENTAL APPOINTMENT, VAGINAL/RECTAL EXAMINATION, SURGICAL PROCEDURE, OR ANY OTHER EXPOSURE?NO LATEX RISK : HAVE YOU EVER HAD ANY DIFFICULTY BREATHING OR HIVES AFTER EATING OR HANDLING ANY FRUITS, OR VEGETABLES; SUCH KIWI, BANANAS, STONE FRUITS, OR CHESTNUTSNO LATEX RISK : DO YOU HAVE A PREVIOUS PERSONAL HISTORY OF MORE THAN NINE SURGERIES, SPINA BIFIDA, OR REPEATED CATHERIZATIONS? NO LATEX RISK : ARE YOU FREQUENTLY EXPOSED TO LATEX PRODUCTS IN YOUR OCCUPATION?NO DATE ASKED : 05/31/2019 CAFFEINE CAFFEINE USE?NO ADVANCE DIRECTIVE ADVANCE DIRECTIVE DISCUSSED WITH PATIENT:YES PT DOES NOT HAVE ANY ADVANCED DIREDCTIVES AND SHE DECLINED INFORMATION ON HCP AT THIS TIME. MARITAL STATUS: . 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 SEXUAL HX HAD SEX IN THE LAST 12 MONTHS (VAGINAL, ORAL, OR ANAL)?YES WITHMEN ONLY USE PROTECTION?NO LMP:POST MENOPAUSE HAVE YOU EVER HAD AN STD?NO REVIEWED 03/05/18 0853 BVREVIEWED WITH PATIENT 06/24/18 0912 JS11/25/18 REVIEWED WITH PT. ADREVIEWED WITH PATIENT 03/01/19 0854 JS. HOSPITALIZATION/MAJOR DIAGNOSTIC PROCEDURE SURGERIES REVIEW OF SYSTEMS REVIEWED BY: PROVIDER: TEAGAN STEVE . CONSTITUTIONAL: ANY CHANGE IN YOUR MEDICAL CONDITION? NO . CHILLS NO . FEVER NO . INFECTION: DO YOU HAVE NEW INFECTIONS? NO . DO YOU HAVE HISTORY OF MRSA? NO . MUSCULOSKELETAL: ANY NEW PATTERNS OF PAIN OR NUMBNESS? NO . GASTROENTEROLOGY: ANY NEW CHANGE IN BOWEL CONTROL? NO . GENITOURINARY: ANY NEW CHANGE IN BLADDER CONTROL? NO . IS THERE A CHANCE YOU COULD BE ? NO . HEMATOLOGY/LYMPH: DO YOU TAKE ANY BLOOD THINNERS? (FOR EXAMPLE- COUMADIN, PLAVIX, AGGRENOX, PLATEL, PRADAXA, OR XARELTO) NO . WHEN WAS YOUR LAST DOSE? DATE: TIME: . NEUROLOGY: HAVE YOU FALLEN IN THE PAST 12 MONTHS? NO . ANY NEW EXTREMITY NUMBNESS OR WEAKNESS? NO . CARDIOLOGY: DO YOU HAVE A PACEMAKER OR DEFIBRILLATOR? YES . RESPIRATORY: HAVE YOU BEEN SICK IN THE PAST WEEK? NO . FEVER NO . FLU LIKE SYMPTOMS? NO . COUGH NO . INTEGUMENTARY: DO YOU HAVE ANY RASHES OR OPEN SORES? YES, MINUTE PSORIASIS . ALLERGIC/IMMUNO: ARE YOU ALLERGIC TO IV DYE? NO . ANY NEW ALLERGIES? NO . PSYCHIATRIC: DO YOU HAVE THOUGHTS OF HURTING YOURSELF OR SOMEONE ELSE? NO . ARE YOU ABUSED, NEGLECTED, OR IN AN UNSAFE ENVIRONMENT? NO . ENDOCRINOLOGY: ARE YOU DIABETIC? NO . OTHER: DO YOU NEED ANY PRESCRIPTIONS? YES . IF YES, PLEASE LIST: ____CARISAPRODOL . ANY NEW PROBLEMS WITH YOUR MEDICATIONS? NO . WHEN DID YOU LAST EAT? ____ . WHEN DID YOU LAST DRINK? ____ . WHAT DID YOU LAST DRINK? ____ . NAME OF PERSON DRIVING YOU HOME? ____ . DO YOU HAVE ANY OTHER QUESTIONS OR CONCERNS NO . VITAL SIGNS WT 172 LBS, HT 65.25 IN, BMI 28.40 INDEX, BP 116/58 MM HG, HR 75 /MIN, RR 16 /MIN, TEMP 96.1 F, OXYGEN SAT % 98%, NA INITIALS SC 09:12. EXAMINATION GENERAL EXAMINATION: LUNGS:LUNG SOUNDS ARE CLEAR . HEART:HEART RATE REGULAR . MUSCULOSKELETAL:*, MUSCLE STRENGTH TESTING 5/5 BILATERAL, PALPATION: POSITIVE FOR PAIN OVER L/S SPINE. POSITIVE FOR PAIN OVER L/S PARSPINALS.SPECIFIC POINT TENDERNESS RIGHT LOW BACK . NEUROLOGIC EXAM:SLIGHTLY WEAK RIGHT LEG COMPARED TO LEFT NORMAL SENSATION TO LIGHT TOUCH BILAT. LOWER EXTREMITIES. ASSESSMENTS POST LAMINECTOMY SYNDROME - M96.1 (PRIMARY) TREATMENT POST LAMINECTOMY SYNDROME REFILL SOMA TABLET, 350 MG, 1 TABLET, ORALLY FOR SPASMS AND PAIN, Q8H TID MDD3, 30 DAY(S), 90, REFILLS 5 NOTES: PATIENT WILL DO INJECTION 2WKS BEFORE SHE IS DUE FOR HER Q2MOS BIOLOGIC INJECTION.HOLD METHOTREXATE 1 WK PRE INJECTION AND RESTART 1 WK POSTRIGHT L4/5 TRANSFORAMINAL STEROID INJECTION-WORKMANS COMP. DISPOSITION & COMMUNICATION FOLLOW UP POST (REASON: RIGHT L4/5 TRANSFORAMINAL STEROID INJECTION-WORKMANS COMP) ELECTRONICALLY SIGNED BY EVI CHRISTENSEN ON 06/13/2019 AT 08:50 AM EDT DISCLAIMER : THIS IS A VISIT SUMMARY EXTRACTED FROM THE [employer] CHART. IT IS NOT A COPY OF THE [employer] PROGRESS NOTE. [facility]
== END ==
LOC: M PAIN 08:45
PROVIDERS: ATTEND Nurse Practitioner Family
DX: M96.1 Postlaminectomy syndrome, not elsewhere classified (principal); G43.909 Migraine, unspecified, not intractable, without status migrainosus; Z88.2 Allergy status to sulfonamides; Z88.5 Allergy status to narcotic agent; Z88.6 Allergy status to analgesic agent; Z88.7 Allergy status to serum and vaccine; Z88.8 Allergy status to other drugs, medicaments and biological substances; Z91.011 Allergy to milk products; Z95.0 Presence of cardiac pacemaker; Z79.899 Other long term (current) drug therapy

== ENCOUNTER 2019-06-03 10:45 | Outpatient (CLI) | payer OTHER ==
[~2019-06-03] VITALS: Ht 167.6 cm; Wt 76.0 kg
[~2019-06-03 10:45] MED LIST changes: -SIMV20TA2 PO; +SIMV20TA22 PO
[2019-06-03 10:55] VITALS: BP 124/65
[2019-06-03] MEDS ORDERED: NS 1,000 ML IV SCH (11:00)
[2019-06-03] MEDS ORDERED: FILTER 1.2 MICRON (ADULT TPN/MANNITOL/REMICADE) XX ONE (11:00)
[2019-06-03] MEDS ORDERED: ACETAMINOPHEN 650MG PO PRIOR TO INFUSION PO ONE (11:00)
[2019-06-03] MEDS ORDERED: INFLIXIMAB BIOSIMILAR 400 MG in NS 210 ML IV ONE (11:00)
[2019-09-23] MEDS ORDERED: ZYRTTAB8 PO (12:58)
[2019-09-23] MEDS ORDERED: GABA-1171 PO (13:00)
[2019-09-23] MEDS ORDERED: NEUR300C PO (13:00)
[2019-09-23] MEDS ORDERED: CODCAP10 PO (13:01)
== END 2019-06-03 14:00 | disposition home or self-care (01) ==
LOC: M INFU 10:45
PROVIDERS: ATTEND Internal Medicine Rheumatology
DX: M06.9 Rheumatoid arthritis, unspecified (principal); Z88.2 Allergy status to sulfonamides; Z88.8 Allergy status to other drugs, medicaments and biological substances; Z88.3 Allergy status to other anti-infective agents
CPT/HCPCS: 96413; 96415; Q5103

== ENCOUNTER → 2019-06-24 | Outpatient (CLI) | payer OTHER ==
[~2019-06-24] MED LIST changes: +SIMV20TA2 PO; -SIMV20TA22 PO
--- NOTE | 2019-06-24 10:27 | REP ---
BILATERAL SCREENING DIGITAL MAMMOGRAM WITH 3D TOMOSYNTHESIS: There are no palpable abnormalities or other breast complaints. The the patient states she had a clinical breast examination ? June, The the patient states she performs self-breast examinations 12 times per year The Tyrer-Cuzick Score is: 14.0% . Comparison is 06/13/2014. There are scattered areas of fibroglandular density. There is no dominant mass, micro calcific cluster or architectural distortion that would indicate malignancy. There are no additional findings on 3D tomosynthesiss. There is no change from the prior study. Impression: BIRADS/ACR category 1 mammogram. Negative. Recommendation: Routine annual screening mammography. This mammogram was interpreted with the aid of a FDA approved computer-aided detection system. A. Negative mammogram reports should not delay biopsy if a dominant or clinically suspicious mass is present. B. Not all breast cancers are identified by mammography or tomosynthesis. C. Adenosis and dense breasts may obscure an underlying neoplasm. Patient letter M1. Electronically Signed by Orlando Rachel MD 06/24/2019 10:19 A
== END ==
LOC: M WHC 08:23
PROVIDERS: ATTEND Nurse Practitioner Women's Health
DX: Z12.31 Encounter for screening mammogram for malignant neoplasm of breast (principal)

== ENCOUNTER → 2019-07-12 | Outpatient (CLI) | payer OTHER ==
[~2019-07-12] MED LIST changes: +BUPIVACAINE HCL 0.25% 30 ML VIAL As Ordered ONE; +ISOVUE-M 300 61% 15ML VIAL (Q9967) As Ordered ONE; +LIDOCAINE 1% SDV INJ 30 ML VIAL As Ordered ONE; +ONDANSETRON 4 MG ORAL DISINTEGRATING TAB (Q0162 PER 1MG) As Ordered ONE; +dexameTHASONE 10 MG/1 ML VIAL PRES.FREE (J1100) As Ordered ONE; +diazePAM 5 MG TAB As Ordered ONE
--- NOTE | 2019-07-12 15:30 | REP ---
Partial lumbar spine series: Seven views . History: Injection procedure for pain. 1 minute 29 seconds of fluoroscopy time is reported. Findings: A sequence of seven fluoroscopically obtained last image hold procedural spot radiographs of the lumbar spine document needle position and contrast injection associated with injection procedure. Electronically Signed by Cyrus Huynh MD 07/12/2019 03:22 P
--- NOTE | 2019-07-19 01:44 | ECWPNPC ---
PATIENT NAME: IFRAH LINDA : 1955 GENDER: FEMALE VISIT DATE: 07/12/2019 DISCHARGE DATE: 07/12/19 1438 VISIT LOCKED DATE TIME: PHYSICIAN: WAGNER SIMPSON MD RESOURCE: WAGNER SIMPSON MD REASON FOR APPOINTMENT 1. TRANSFORAMINAL EPIDURAL, PER ENRIKE!!!! HISTORY OF PRESENT ILLNESS HISTORY OF PRESENT ILLNESS: PAIN THE PATIENT DESCRIBES THE PAIN... FALL RISK SCREENING: SCREENING :NO FALLS REPORTED IN THE LAST YEAR CURRENT MEDICATIONS TAKING MAGNESIUM 250 MG TABLET 1 TAB(S) ORALLY TWICE A DAY TAKING CALCIUM 600 + D 600-400 MG-UNIT TABLET 1 TABLET ORALLY TWICE A DAY TAKING MULTIVITAMINS OTC TABLET 1 TAB(S) ORALLY ONCE A DAY TAKING IBUPROFEN 200 MG TABLET 3 TABLETS ORALLY NEEDED 3X/DAY TAKING VITAMIN D 2000 UNIT TABLET 1 TAB(S) ORALLY ONCE A DAY TAKING LIDOCAINE 5 % PATCH 1 PATCH TO INTACT SKIN REMOVE AFTER 12 HOURS EXTERNALLY NEEDED, NOTES: RARELY TAKING FISH OIL 1000 MG CAPSULE 1 CAPSULE ORALLY BID TAKING TAGAMET HB 200 MG TABLET 1 TABLET NEEDED ORALLY THE DAY BEFORE AND DAY AFTER REMICADE INJECTION, NOTES: BEFORE INFUSION TAKING REFRESH OPTIVE 0.5-0.9 % SOLUTION 1 DROP INTO AFFECTED EYE NEEDED OPHTHALMIC QID TAKING METAMUCIL 1 CAPFUL 1 SCOOP TWICE ADAY NEEDED, NOTES: VERY RARELY TAKING INFLIXIMAB-DYYB 100 MG SOLUTION RECONSTITUTED DIRECTED INTRAVENOUS EVERY 8 WEEKS, NOTES: AKA: INFLECTRA, LAST DOSE 6 WEEKS AGO TAKING METHOTREXATE 2.5 MG TABLET 6 TABS ORALLY ONCE A WEEK, NOTES: 07/01 TAKING FOLIC ACID 1 MG TABLET 1 TABLET ORALLY ONCE A DAY TAKING SOMA 350 MG TABLET 1 TABLET ORALLY Q8H TID MDD3 NOT-TAKING MECLIZINE HCL 25 MG TABLET 1 TAB ORALLY THREE TIMES DAILY NEEDED, NOTES: RARELY NOT-TAKING ONDANSETRON 4 MG TABLET DISPERSIBLE 1 TABLET ON THE TONGUE AND ALLOW TO DISSOLVE ORALLY EVERY 8 HRS PRN MEDICATION LIST REVIEWED AND RECONCILED WITH THE PATIENT PAST MEDICAL HISTORY RHEUMATOID ARTHRITIS PSORIATIC ARTHRITIS PSORIASIS ALLERGIES GOLD SHOTS: ITCHING - ALLERGY OTC CREAMS, LOTIONS AND DETERGENTS: RASH, ITCHING - ALLERGY ASPIRIN: HIVES - ALLERGY LACTOSE: TERRIBLE GAS - ALLERGY PLAQUENIL: EXTREME ITCHING, BLISTERS - ALLERGY TRAMADOL: CONSTIPATED, NAUSEA, EXTREMELY DRUGGED - ALLERGY LODINE: ITCHING - ALLERGY SULFA (FOR ALLERGY USE ONLY): RASH - ALLERGY SURGICAL HISTORY DISKECTOMY-BACK SURGERY 1997 CERVICAL CERCLAGE DURING COLONOSCOPY, DR. OVALLE. 07/2013 FAMILY HISTORY FATHER: 86 YRS, COLORECTAL CANCER @ 83, PROSTATE CA IN HIS LATE 70'S MOTHER: ALIVE 88 YRS DAUGHTER(S): PSORIATIC ARTHRITIS PATERNAL GRAND MOTHER: BREAST CANCER IN HER 80'S 3DAUGHTER(S) - HEALTHY. SOCIAL HISTORY GENERAL: TOBACCO USE ARE YOU A:NONSMOKER HIV / HEP-C SCREENING HIV TEST OFFERED TO PATIENT:YES DATE OFFERED:06/24/2019 TEST ACCEPTED:NO REASON:PATIENT DECLINED BROCHURE PROVIDED TO PATIENTNO OTHERS AT HOME: SPOUSE. EDUCATION LEVEL OF EDUCATION:NOT FINISHED COLLEGE DIET: REGULAR. LANGUAGE LANGUAGES SPOKEN:SPANISH DOMESTIC VIOLENCE DO YOU FEEL SAFE IN YOUR ENVIRONMENT?YES BMI CARE GOAL FOLLOW-UP ABOVE NORMAL BMI FOLLOW-UPDIETARY NEEDS EDUCATION, WEIGHT MONITORING RECREATIONAL DRUG USE DRUG USE?NO EXERCISE: WALKS IS LIMITED DUE TO BACK ISSUES. LEARNING BARRIERS / SPECIAL NEEDS CHANGE FROM LAST VISIT?NO BARRIERS TO LEARNING?NO HEARING IMPAIRED?NO VISION IMPAIRED?YES COGNITIVELY IMPAIRED?NO :CORRECTIVE LENSES READINESS TO LEARN?YES LEARNING PREFERENCES?NO LEARNING CAPABILITIES PRESENT?YES EMOTIONAL BARRIERS?NO SPECIAL DEVICES?NO PAIN CLINIC PFS, CLERGY, PUBLIC HEALTH REFERRALS HAS THE PATIENT BEEN EDUCATED REGARDING HIS/HER PLAN OF CARE?YES HAS THE PATIENT BEEN EDUCATED REGARDING PAIN, THE RISK FOR PAIN, THE IMPORTANCE OF EFFECTIVE PAIN MANAGEMENT, AND THE PAIN ASSESSMENT PROCESS?YES LATEX QUESTIONNAIRE LATEX ALLERGY : HAVE YOU EVER DEVELOPED ANY TYPE OF REACTION AFTER HANDLING LATEX PRODUCTS SUCH RUBBER GLOVES, CONDOMS, DIAPHRAGMS, BALLOONS, SOCKS, OR UNDERWEAR?NO LATEX ALLERGY : HAVE YOU EVER DEVELOPED ANY TYPE OF REACTION DURING OR AFTER DENTAL APPOINTMENT, VAGINAL/RECTAL EXAMINATION, SURGICAL PROCEDURE, OR ANY OTHER EXPOSURE?NO DATE ASKED : 05/31/2019 LATEX RISK : HAVE YOU EVER HAD ANY DIFFICULTY BREATHING OR HIVES AFTER EATING OR HANDLING ANY FRUITS, OR VEGETABLES; SUCH KIWI, BANANAS, STONE FRUITS, OR CHESTNUTSNO LATEX RISK : DO YOU HAVE A PREVIOUS PERSONAL HISTORY OF MORE THAN NINE SURGERIES, SPINA BIFIDA, OR REPEATED CATHERIZATIONS? NO LATEX RISK : ARE YOU FREQUENTLY EXPOSED TO LATEX PRODUCTS IN YOUR OCCUPATION?NO CAFFEINE CAFFEINE USE?NO ADVANCE DIRECTIVE ADVANCE DIRECTIVE DISCUSSED WITH PATIENT:YES PT DOES NOT HAVE ANY ADVANCED DIREDCTIVES AND SHE DECLINED INFORMATION ON HCP AT THIS TIME. MARITAL STATUS: . 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 SEXUAL HX HAD SEX IN THE LAST 12 MONTHS (VAGINAL, ORAL, OR ANAL)?YES WITHMEN ONLY USE PROTECTION?NO LMP:POST MENOPAUSE HAVE YOU EVER HAD AN STD?NO REVIEWED 03/05/18 0853 BVREVIEWED WITH PATIENT 06/24/18 0912 JS3 REVIEWED WITH PT. ADREVIEWED WITH PATIENT 03/01/19 0854 JSREVIEWED WITH PATIENT 07/12/19 LAS. HOSPITALIZATION/MAJOR DIAGNOSTIC PROCEDURE SURGERIES REVIEW OF SYSTEMS REVIEWED BY: PROVIDER: . CONSTITUTIONAL: ANY CHANGE IN YOUR MEDICAL CONDITION? NO . CHILLS NO . FEVER NO . INFECTION: DO YOU HAVE NEW INFECTIONS? NO . DO YOU HAVE HISTORY OF MRSA? NO . MUSCULOSKELETAL: ANY NEW PATTERNS OF PAIN OR NUMBNESS? INCREASED PAIN DOWN RIGHT LEG . GASTROENTEROLOGY: ANY NEW CHANGE IN BOWEL CONTROL? NO . GENITOURINARY: ANY NEW CHANGE IN BLADDER CONTROL? NO . IS THERE A CHANCE YOU COULD BE ? NO . HEMATOLOGY/LYMPH: DO YOU TAKE ANY BLOOD THINNERS? (FOR EXAMPLE- COUMADIN, PLAVIX, AGGRENOX, PLATEL, PRADAXA, OR XARELTO) NO . WHEN WAS YOUR LAST DOSE? DATE: TIME: . NEUROLOGY: HAVE YOU FALLEN IN THE PAST 12 MONTHS? NO . ANY NEW EXTREMITY NUMBNESS OR WEAKNESS? NO . CARDIOLOGY: DO YOU HAVE A PACEMAKER OR DEFIBRILLATOR? NO . RESPIRATORY: HAVE YOU BEEN SICK IN THE PAST WEEK? NO . FEVER NO . FLU LIKE SYMPTOMS? NO . COUGH NO . INTEGUMENTARY: DO YOU HAVE ANY RASHES OR OPEN SORES? NO . ALLERGIC/IMMUNO: ARE YOU ALLERGIC TO IV DYE? NO . ANY NEW ALLERGIES? NO . PSYCHIATRIC: DO YOU HAVE THOUGHTS OF HURTING YOURSELF OR SOMEONE ELSE? NO . ARE YOU ABUSED, NEGLECTED, OR IN AN UNSAFE ENVIRONMENT? NO . ENDOCRINOLOGY: ARE YOU DIABETIC? NO . OTHER: DO YOU NEED ANY PRESCRIPTIONS? NO . IF YES, PLEASE LIST: ____ . ANY NEW PROBLEMS WITH YOUR MEDICATIONS? NO . WHEN DID YOU LAST EAT? ____10/28/19 0730 . WHEN DID YOU LAST DRINK? ____07/12/19 1030 . WHAT DID YOU LAST DRINK? ____WATER . NAME OF PERSON DRIVING YOU HOME? ____BRANDY LINDA . DO YOU HAVE ANY OTHER QUESTIONS OR CONCERNS NO . VITAL SIGNS WT 172.8 LBS, HT 65.25 IN, BMI 28.53 INDEX, BP 140/66 MM HG, HR 76 /MIN, RR 16 /MIN, TEMP 97.5 F, OXYGEN SAT % 100%, SAFE IN ENV? (Y/N) YES, NA INITIALS FL 11:05, REVIEWED BY: RAISA. ASSESSMENTS INTERVERTEBRAL DISC DISORDERS WITH RADICULOPATHY, LUMBAR REGION - M51.16 (PRIMARY) POST LAMINECTOMY SYNDROME - M96.1 INTERVERTEBRAL DISC DISORDERS WITH RADICULOPATHY, LUMBOSACRAL REGION - M51.17 TREATMENT POST LAMINECTOMY SYNDROME [facility] FLUORO GUIDE SPINE INJECTION (PAIN)[id number] PROCEDURES PN LUMBAR TRANSFORAMINAL BLOCKS PRE PROCEDURE DIAGNOSIS LUMBAR DISC DISORDER WITH RADICULOPATHY, LUMBOSACRAL RADICULOPATHY POST PROCEDURE DIAGNOSIS LUMBAR DISC DISORDER WITH RADICULOPATHY, LUMBOSACRAL RADICULOPATHY PROCEDURE RIGHT L4, RIGHT L5, AND RIGHT S1 TRANSFORAMINAL EPIDURAL STEROID INJECTION UNDER FLUOROSCOPIC GUIDANCE SURGEON DR WAGNER SIMPSON GIS MAPPING TECHNICIAN NONE ANESTHESIA LOCAL PRE PROCEDURE NOTE PATIENT WITH HISTORY OF CHRONIC LOW BACK PAIN. I EVALUATED THE PATIENT AND REVIEWED THE CHART. I WENT OVER THE RISKS, ALTERNATIVES, AND BENEFITS ASSOCIATED WITH THIS PROCEDURE. THE PATIENT WOULD LIKE TO PROCEED AND GIVES CONSENT TO PERFORM THE PROCEDURE. THE PATIENT DENIES UNEXPLAINABLE WEIGHT LOSS, FEVER, CHILLS, OR CHANGES IN URINARY OR BOWEL CONTROL DESCRIPTION OF PROCEDURE THE PATIENT WAS BROUGHT TO THE PROCEDURE ROOM AND PLACED IN THE PRONE POSITION. THE LUMBOSACRAL AREA WAS CLEANED WITH BETADINE SOLUTION AND DRAPED ASEPTICALLY. THE PROCEDURE WAS DONE UNDER STERILE CONDITIONS. I CHECKED LATERALITY AND THE LEVEL WHERE THE PROCEDURE WAS GOING TO BE PERFORMED WITH THE PATIENT AND THE SUPPORTING STAFF AT THE MOMENT OF THE TIME OUT IN THE PROCEDURE ROOM. UNDER FLUOROSCOPIC GUIDANCE, TARGETS WERE SELECTED AT THE RIGHT TRANSFORAMINAL OPENING OF L4, L5, AND S1. TARGET POINT WAS SELECTED AFTER LATERAL ROTATION AND TILT OF THE MAGNIFIER OF THE C-ARM. LIDOCAINE 0.5% WAS USED TO NUMB THE SKIN AND THE SUBCUTANEOUS TISSUE BELOW IT. AN EPIMED INTRODUCER 18-GAUGE WAS ADVANCED UNTIL WE WENT CLOSE TO THE SELECTED TRANSFORAMINAL OPENINGS. AFTER PROPER POSITION OF THE NEEDLES WAS ACHIEVED, A 22-GAUGE EPIMED NEEDLE WAS PLACED INSIDE OF THE INTRODUCER AND ADVANCED TO THE TRANSFORAMINAL OPENING OF THE SELECTED SITES. WHEN PROPER POSITION OF THE NEEDLE WAS ACHIEVED, ISOVUE M DYE 30%, 0.25 ML, WAS INJECTED SHOWING ADEQUATE SPREAD OF THE DYE. THIS WAS DONE UNDER DIGITAL SUBTRACTION AND ANGIOGRAPHY. THERE WAS NO VASCULAR UPDATE. THEN, A SOLUTION OF 2 ML OF BUPIVACAINE 0.25% AND DEXAMETHASONE 10 MG WAS INJECTED AT EACH SITE. THERE WAS NO EVIDENCE OF BLOOD, PARESTHESIA OR CEREBROSPINAL FLUID DURING THE PROCEDURE. THE PATIENT WAS SENT TO THE RECOVERY ROOM. THE PATIENT WAS MOVING THE EXTREMITIES AND DOING WELL. THERE WAS NO COMPLICATION DURING THE PROCEDURE. FLUOROSCOPY TIME WAS 89 SECONDS POST PROCEDURE NOTE THE PROCEDURE DONE WAS DISCUSSED WITH THE PATIENT. THE PATIENT WILL BE SEEN IN A FOLLOW UP IN THE NEXT FEW WEEKS. INSTRUCTIONS WERE GIVEN, QUESTIONS WERE ANSWERED, AND THE PATIENT EXPRESSED UNDERSTANDING AND AGREES WITH THE PLAN. I, NO GARCIA, DOCUMENTED THE ABOVE INFORMATION ACTING A SCRIBE FOR DR. SIMPSON. I HAVE REVIEWED THE ABOVE DOCUMENT, WRITTEN BY NO GARCIA SCRIBE AND I VERIFY THAT IT IS ACCURATE. PROCEDURE CODES 85150 INJ FORAMEN EPIDURAL L/S, [place]IFI[place]: [place] [id number] INJ FORAMEN EPIDURAL ADD-ON, [place]: [place] [id number] INJ FORAMEN EPIDURAL ADD-ON, MODIFIERS: RT 6045F RADXPS IN END [id number] PXD DISPOSITION & COMMUNICATION FOLLOW UP 3 WEEKS ELECTRONICALLY SIGNED BY WAGNER SIMPSON MD, MD ON 07/18/2019 AT 04:52 PM EST DISCLAIMER : THIS IS A VISIT SUMMARY EXTRACTED FROM THE [employer] CHART. IT IS NOT A COPY OF THE [employer] PROGRESS NOTE. MTDD
== END ==
LOC: M PAIN 12:00
PROVIDERS: ATTEND Anesthesiology
DX: M51.16 Intervertebral disc disorders with radiculopathy, lumbar region (principal); M96.1 Postlaminectomy syndrome, not elsewhere classified; M51.17 Intervertebral disc disorders with radiculopathy, lumbosacral region; M06.9 Rheumatoid arthritis, unspecified; L40.50 Arthropathic psoriasis, unspecified; Z79.899 Other long term (current) drug therapy; Z88.2 Allergy status to sulfonamides; Z88.6 Allergy status to analgesic agent; Z88.5 Allergy status to narcotic agent; Z88.8 Allergy status to other drugs, medicaments and biological substances
CPT/HCPCS: 64483; 64484; J1100; Q0162; Q9967

== ENCOUNTER → 2019-07-25 | Outpatient (CLI) | payer OTHER ==
[~2019-07-25] MED LIST changes: -BUPIVACAINE HCL 0.25% 30 ML VIAL As Ordered ONE; -ISOVUE-M 300 61% 15ML VIAL (Q9967) As Ordered ONE; -LIDOCAINE 1% SDV INJ 30 ML VIAL As Ordered ONE; -ONDANSETRON 4 MG ORAL DISINTEGRATING TAB (Q0162 PER 1MG) As Ordered ONE; -dexameTHASONE 10 MG/1 ML VIAL PRES.FREE (J1100) As Ordered ONE; -diazePAM 5 MG TAB As Ordered ONE
== END ==
LOC: M PAIN 10:30
PROVIDERS: ATTEND Nurse Practitioner Family
DX: M47.817 Spondylosis without myelopathy or radiculopathy, lumbosacral region (principal)

== ENCOUNTER 2019-07-29 11:59 | Outpatient (CLI) | payer OTHER ==
[~2019-07-29] VITALS: Ht 167.6 cm; Wt 76.0 kg
[2019-07-29 12:05] VITALS: BP 108/55
[2019-07-29] MEDS ORDERED: NS 1,000 ML IV SCH (12:30)
[2019-07-29] MEDS ORDERED: ACETAMINOPHEN 650MG PO PRIOR TO INFUSION PO ONE (12:30)
[2019-07-29] MEDS ORDERED: FILTER 1.2 MICRON (ADULT TPN/MANNITOL/REMICADE) XX ONE (12:30)
[2019-07-29] MEDS ORDERED: INFLIXIMAB BIOSIMILAR 400 MG in NS 210 ML IV ONE (12:30)
[2019-07-29 15:00] VITALS: BP 110/52
== END 2019-07-29 15:00 | disposition home or self-care (01) ==
LOC: M INFU 11:59
PROVIDERS: ATTEND Internal Medicine Rheumatology
DX: M06.9 Rheumatoid arthritis, unspecified (principal); Z88.2 Allergy status to sulfonamides; Z88.5 Allergy status to narcotic agent; Z88.6 Allergy status to analgesic agent; Z88.8 Allergy status to other drugs, medicaments and biological substances; Z91.041 Radiographic dye allergy status
CPT/HCPCS: 96413; 96415; Q5103

== ENCOUNTER → 2019-08-10 | Outpatient (CLI) | payer OTHER ==
[~2019-08-10] MED LIST changes: +BUPIVACAINE HCL 0.25% 30 ML VIAL As Ordered ONE; +ISOVUE-M 300 61% 15ML VIAL (Q9967) As Ordered ONE; +LIDOCAINE 1% SDV INJ 30 ML VIAL As Ordered ONE; -SIMV20TA2 PO; +SIMV20TA22 PO
--- NOTE | 2019-08-10 15:06 | REP ---
C-ARM VIEWS LUMBAR SPINE: Clinical history: Pain. Two C-Arm views of the lumbar spine performed during facet injection performed by Dr. Benoit. [place] are seen along the right lower lumbar facet joints and a small amount of contrast is injected. 18 seconds of fluoroscopy time is utilized. Electronically Signed by Orlando Champagne MD 08/10/2019 03:40 P
--- NOTE | 2019-08-25 01:06 | ECWPNPC ---
PATIENT NAME: IFRAH LINDA : 1955 GENDER: FEMALE VISIT DATE: 08/10/2019 DISCHARGE DATE: 08/10/19 1441 VISIT LOCKED DATE TIME: PHYSICIAN: WAGNER SIMPSON MD RESOURCE: WAGNER SIMPSON MD REASON FOR APPOINTMENT 1. W/C RIGHT L4/5, L5/S1 LFBDX HISTORY OF PRESENT ILLNESS HISTORY OF PRESENT ILLNESS: PAIN THE PATIENT DESCRIBES THE PAIN... FALL RISK SCREENING: SCREENING :NO FALLS REPORTED IN THE LAST YEAR CURRENT MEDICATIONS TAKING MAGNESIUM 250 MG TABLET 1 TAB(S) ORALLY TWICE A DAY, NOTES: 08/10/19799 TAKING CALCIUM 600 + D 600-400 MG-UNIT TABLET 1 TABLET ORALLY TWICE A DAY, NOTES: 08/10/19799 TAKING MULTIVITAMINS OTC TABLET 1 TAB(S) ORALLY ONCE A DAY, NOTES: 08/10/19799 TAKING IBUPROFEN 200 MG TABLET 3 TABLETS ORALLY NEEDED 3X/DAY, NOTES: 08/10/19799 TAKING VITAMIN D 2000 UNIT TABLET 1 TAB(S) ORALLY ONCE A DAY, NOTES: 08/10/19799 TAKING LIDOCAINE 5 % PATCH 1 PATCH TO INTACT SKIN REMOVE AFTER 12 HOURS EXTERNALLY NEEDED, NOTES: 1 WEEK AGO TAKING FISH OIL 1000 MG CAPSULE 1 CAPSULE ORALLY BID, NOTES: 08/10/19799 TAKING TAGAMET HB 200 MG TABLET 1 TABLET NEEDED ORALLY THE DAY BEFORE AND DAY AFTER REMICADE INJECTION, NOTES: BEFORE INFUSION TAKING REFRESH OPTIVE 0.5-0.9 % SOLUTION 1 DROP INTO AFFECTED EYE NEEDED OPHTHALMIC QID, NOTES: 08/10/19799 TAKING METAMUCIL 1 CAPFUL 1 SCOOP TWICE ADAY NEEDED, NOTES: VERY RARELY TAKING INFLIXIMAB-DYYB 100 MG SOLUTION RECONSTITUTED DIRECTED INTRAVENOUS EVERY 8 WEEKS, NOTES: AKA: INFLECTRA, LAST DOSE 07/29/19 TAKING METHOTREXATE 2.5 MG TABLET 6 TABS ORALLY ONCE A WEEK, NOTES: TAKES ON FRIDAYS TAKING FOLIC ACID 1 MG TABLET 1 TABLET ORALLY ONCE A DAY, NOTES: 08/10/19799 TAKING SOMA 350 MG TABLET 1 TABLET ORALLY Q8H TID MDD3, NOTES: 08/10/19799 TAKING GABAPENTIN 100 MG CAPSULE 1 CAPSULE ORALLY Q8H TID, NOTES: 08/10/19599 NOT-TAKING MECLIZINE HCL 25 MG TABLET 1 TAB ORALLY THREE TIMES DAILY NEEDED, NOTES: RARELY NOT-TAKING ONDANSETRON 4 MG TABLET DISPERSIBLE 1 TABLET ON THE TONGUE AND ALLOW TO DISSOLVE ORALLY EVERY 8 HRS PRN MEDICATION LIST REVIEWED AND RECONCILED WITH THE PATIENT PAST MEDICAL HISTORY RHEUMATOID ARTHRITIS PSORIATIC ARTHRITIS PSORIASIS ALLERGIES GOLD SHOTS: ITCHING - ALLERGY OTC CREAMS, LOTIONS AND DETERGENTS: RASH, ITCHING - ALLERGY ASPIRIN: HIVES - ALLERGY LACTOSE: TERRIBLE GAS - ALLERGY PLAQUENIL: EXTREME ITCHING, BLISTERS - ALLERGY TRAMADOL: CONSTIPATED, NAUSEA, EXTREMELY DRUGGED - ALLERGY LODINE: ITCHING - ALLERGY SULFA (FOR ALLERGY USE ONLY): RASH - ALLERGY SURGICAL HISTORY DISKECTOMY-BACK SURGERY 1997 CERVICAL CERCLAGE DURING COLONOSCOPY, DR. OVALLE. 07/2013 FAMILY HISTORY FATHER: 86 YRS, COLORECTAL CANCER @ 83, PROSTATE CA IN HIS LATE 70'S MOTHER: ALIVE 88 YRS DAUGHTER(S): PSORIATIC ARTHRITIS PATERNAL GRAND MOTHER: BREAST CANCER IN HER 80'S 3DAUGHTER(S) - HEALTHY. SOCIAL HISTORY GENERAL: TOBACCO USE ARE YOU A:NONSMOKER HIV / HEP-C SCREENING HIV TEST OFFERED TO PATIENT:YES DATE OFFERED:06/24/2019 TEST ACCEPTED:NO REASON:PATIENT DECLINED BROCHURE PROVIDED TO PATIENTNO OTHERS AT HOME: SPOUSE. EDUCATION LEVEL OF EDUCATION:NOT FINISHED COLLEGE DIET: REGULAR. LANGUAGE LANGUAGES SPOKEN:LATVIAN DOMESTIC VIOLENCE DO YOU FEEL SAFE IN YOUR ENVIRONMENT?YES BMI CARE GOAL FOLLOW-UP ABOVE NORMAL BMI FOLLOW-UPDIETARY NEEDS EDUCATION, WEIGHT MONITORING RECREATIONAL DRUG USE DRUG USE?NO EXERCISE: WALKS IS LIMITED DUE TO BACK ISSUES. LEARNING BARRIERS / SPECIAL NEEDS CHANGE FROM LAST VISIT?NO BARRIERS TO LEARNING?NO HEARING IMPAIRED?NO VISION IMPAIRED?YES COGNITIVELY IMPAIRED?NO :CORRECTIVE LENSES READINESS TO LEARN?YES LEARNING PREFERENCES?NO LEARNING CAPABILITIES PRESENT?YES EMOTIONAL BARRIERS?NO SPECIAL DEVICES?NO PAIN CLINIC PFS, CLERGY, PUBLIC HEALTH REFERRALS HAS THE PATIENT BEEN EDUCATED REGARDING HIS/HER PLAN OF CARE?YES HAS THE PATIENT BEEN EDUCATED REGARDING PAIN, THE RISK FOR PAIN, THE IMPORTANCE OF EFFECTIVE PAIN MANAGEMENT, AND THE PAIN ASSESSMENT PROCESS?YES LATEX QUESTIONNAIRE LATEX ALLERGY : HAVE YOU EVER DEVELOPED ANY TYPE OF REACTION AFTER HANDLING LATEX PRODUCTS SUCH RUBBER GLOVES, CONDOMS, DIAPHRAGMS, BALLOONS, SOCKS, OR UNDERWEAR?NO LATEX ALLERGY : HAVE YOU EVER DEVELOPED ANY TYPE OF REACTION DURING OR AFTER DENTAL APPOINTMENT, VAGINAL/RECTAL EXAMINATION, SURGICAL PROCEDURE, OR ANY OTHER EXPOSURE?NO DATE ASKED : 05/31/2019 LATEX RISK : HAVE YOU EVER HAD ANY DIFFICULTY BREATHING OR HIVES AFTER EATING OR HANDLING ANY FRUITS, OR VEGETABLES; SUCH KIWI, BANANAS, STONE FRUITS, OR CHESTNUTSNO LATEX RISK : DO YOU HAVE A PREVIOUS PERSONAL HISTORY OF MORE THAN NINE SURGERIES, SPINA BIFIDA, OR REPEATED CATHERIZATIONS? NO LATEX RISK : ARE YOU FREQUENTLY EXPOSED TO LATEX PRODUCTS IN YOUR OCCUPATION?NO CAFFEINE CAFFEINE USE?NO ADVANCE DIRECTIVE ADVANCE DIRECTIVE DISCUSSED WITH PATIENT:YES PT DOES NOT HAVE ANY ADVANCED DIREDCTIVES AND SHE DECLINED INFORMATION ON HCP AT THIS TIME. 08/10/19 MARITAL STATUS: . 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 SEXUAL HX HAD SEX IN THE LAST 12 MONTHS (VAGINAL, ORAL, OR ANAL)?YES WITHMEN ONLY USE PROTECTION?NO LMP:POST MENOPAUSE HAVE YOU EVER HAD AN STD?NO REVIEWED 03/05/18 0853 BVREVIEWED WITH PATIENT 06/24/18 0912 JS11/25/18 REVIEWED WITH PT. ADREVIEWED WITH PATIENT 03/01/19 0854 JSREVIEWED WITH PATIENT 07/12/19 LASREVIEWED WITH PATIENT 07/25/19 1029 JSREVIEWED WITH PATIENT 08/10/19 1320 BV. HOSPITALIZATION/MAJOR DIAGNOSTIC PROCEDURE SURGERIES REVIEW OF SYSTEMS REVIEWED BY: PROVIDER: . CONSTITUTIONAL: ANY CHANGE IN YOUR MEDICAL CONDITION? NO . CHILLS NO . FEVER NO . INFECTION: DO YOU HAVE NEW INFECTIONS? NO . DO YOU HAVE HISTORY OF MRSA? NO . MUSCULOSKELETAL: ANY NEW PATTERNS OF PAIN OR NUMBNESS? NO . GASTROENTEROLOGY: ANY NEW CHANGE IN BOWEL CONTROL? NO . GENITOURINARY: ANY NEW CHANGE IN BLADDER CONTROL? NO . IS THERE A CHANCE YOU COULD BE ? NO . HEMATOLOGY/LYMPH: DO YOU TAKE ANY BLOOD THINNERS? (FOR EXAMPLE- COUMADIN, PLAVIX, AGGRENOX, PLATEL, PRADAXA, OR XARELTO) NO . WHEN WAS YOUR LAST DOSE? DATE: TIME: . NEUROLOGY: HAVE YOU FALLEN IN THE PAST 12 MONTHS? NO . ANY NEW EXTREMITY NUMBNESS OR WEAKNESS? NO . CARDIOLOGY: DO YOU HAVE A PACEMAKER OR DEFIBRILLATOR? NO . RESPIRATORY: HAVE YOU BEEN SICK IN THE PAST WEEK? NO . FEVER NO . FLU LIKE SYMPTOMS? NO . COUGH NO . INTEGUMENTARY: DO YOU HAVE ANY RASHES OR OPEN SORES? NO . ALLERGIC/IMMUNO: ARE YOU ALLERGIC TO IV DYE? NO . ANY NEW ALLERGIES? NO . PSYCHIATRIC: DO YOU HAVE THOUGHTS OF HURTING YOURSELF OR SOMEONE ELSE? NO . ARE YOU ABUSED, NEGLECTED, OR IN AN UNSAFE ENVIRONMENT? NO . ENDOCRINOLOGY: ARE YOU DIABETIC? NO . OTHER: DO YOU NEED ANY PRESCRIPTIONS? NO . IF YES, PLEASE LIST: ____ . ANY NEW PROBLEMS WITH YOUR MEDICATIONS? NO . WHEN DID YOU LAST EAT? 08/09/19 1730 . WHEN DID YOU LAST DRINK? 08/10/19 1030 . WHAT DID YOU LAST DRINK? WATER . NAME OF PERSON DRIVING YOU HOME? BRANDY LINDA . DO YOU HAVE ANY OTHER QUESTIONS OR CONCERNS NO . VITAL SIGNS WT 173.2 LBS, HT 65.25 IN, BMI 28.60 INDEX, BP 152/70 MM HG, HR 78 /MIN, RR 18 /MIN, TEMP 97.0 F, OXYGEN SAT % 99%, NA INITIALS AW 1322, REVIEWED BY: BV. 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 YES ARE THE PATIENT'S COMPLAINTS CONSISTENT WITH HIS/HER HISTORY OF THE INJURY/ILLNESS? YES IS THE PATIENT'S HISTORY OF THE INJURY/ILLNESS CONSISTENT WITH YOUR OBJECTIVE FINDING? YES WHAT IS THE PERCENTAGE OF TEMPORARY IMPAIRMENT? MODERATE TO MARKED = 66.7% IS THE PATIENT WORKING? NO DOCTOR ON SITE: WAGNER HOPE MD PN LUMBAR FACET BLOCK DIAGNOSTIC PRE PROCEDURE DIAGNOSIS LUMBAR SPONDYLOSIS, LUMBOSACRAL SPONDYLOSIS POST PROCEDURE DIAGNOSIS LUMBAR SPONDYLOSIS, LUMBOSACRAL SPONDYLOSIS PROCEDURE RIGHT L4-L5 AND RIGHT L5-S1 FACET BLOCK DIAGNOSTIC NUMBER [address] WAGNER SIMPSON CATALYST IMPREGNATOR NONE ANESTHESIA LOCAL PRE PROCEDURE NOTE THE PATIENT WITH HISTORY OF CHRONIC LOW BACK PAIN. I EVALUATED THE PATIENT AND REVIEWED THE CHART. I WENT OVER THE RISKS, ALTERNATIVES, AND BENEFITS ASSOCIATED WITH THIS PROCEDURE. THE PATIENT WOULD LIKE TO PROCEED AND GAVE CONSENT TO PERFORM THE PROCEDURE. AGREED WITH THE PATIENT WE ARE DOING THIS PROCEDURE TO DETERMINE IF THE PATIENT IS A CANDIDATE FOR A RADIOFREQUENCY ABLATION OF THE FACETS JOINTS. THE PATIENT DENIES UNEXPLAINABLE WEIGHT LOSS, FEVER, CHILLS, OR NEW CHANGES IN URINARY OR BOWEL CONTROL DESCRIPTION OF PROCEDURE THE PATIENT WAS BROUGHT TO THE PROCEDURE ROOM AND PLACED IN THE PRONE POSITION. THE LUMBOSACRAL AREA WAS CLEANED WITH CHLORAPREP SOLUTION AND DRAPED ASEPTICALLY. THE PROCEDURE WAS DONE UNDER STERILE CONDITIONS. I CHECKED LATERALITY AND THE LEVEL WHERE THE PROCEDURE WAS GOING TO BE PERFORMED WITH THE PATIENT AND THE SUPPORTING STAFF AT THE MOMENT OF THE TIME OUT IN THE PROCEDURE ROOM. UNDER FLUOROSCOPIC GUIDANCE, TARGETS WERE SELECTED AT THE INTERSECTION OF THE RIGHT TRANSVERSE PROCESS OF L4, L5 AND ALA OF S1 WITH ITS RESPECTIVE SUPERIOR ARTICULAR PROCESS. LIDOCAINE WAS USED TO NUMB THE SKIN AND THE SUBCUTANEOUS TISSUE BELOW IT. SPINAL NEEDLE, 22-GAUGE WAS ADVANCED UNDER FLUOROSCOPIC GUIDANCE AND FOLLOWING PATIENT FEEDBACK UNTIL THE TARGETS WERE REACHED. POSITION OF THE NEEDLES WAS VERIFIED WITH AP AND LATERAL VIEWS. AFTER PROPER POSITION OF THE NEEDLES WAS ACHIEVED, ISOVUE-M DYE 30% 0.1 ML WAS INJECTED AT EACH SITE SHOWING ADEQUATE SPREAD OF THE DYE. THEN A SOLUTION OF 0.4 ML OF BUPIVACAINE 0.25% WAS INJECTED AT EACH SITE. THERE WAS NO EVIDENCE OF BLOOD, PARESTHESIA OR CEREBROSPINAL FLUID DURING THE PROCEDURE. THE PATIENT WAS SENT TO THE RECOVERY ROOM. THE PATIENT WAS MOVING THE EXTREMITIES AND DOING WELL. THERE WAS NO COMPLICATION DURING THE PROCEDURE. FLUOROSCOPY TIME WAS 18 SECONDS POST PROCEDURE NOTE THE PATIENT WILL DOCUMENT HIS PAIN LEVEL AND RESPONSE TO THIS PROCEDURE EVERY 30 MINUTES. THE PATIENT WILL BE SEEN IN A FOLLOW UP IN THE NEXT FEW WEEKS. DEPENDING ON THE RESULTS OF THIS BLOCK AND IF THE PAIN DOES NOT DECREASE FOR THE PATIENT, I MAY CONSIDER PERFORMING A CAUDAL EPIDURAL IN THE FUTURE. FURTHER DETERMINATION FOR HIS CASE WILL BE DONE AT THE NEXT VISIT. INSTRUCTIONS WERE GIVEN, QUESTIONS WERE ANSWERED, AND THE PATIENT EXPRESSED UNDERSTANDING AND AGREED WITH THE PLAN. I, NO GARCIA, DOCUMENTED THE ABOVE INFORMATION ACTING A SCRIBE FOR DR. SIMPSON. I HAVE REVIEWED THE ABOVE DOCUMENT, WRITTEN BY NO GARCIA SCRIBBryson AND I VERIFY THAT IT IS ACCURATE. PROCEDURE CODES 79584 INJ PARAVERT F JNT L/S 1 LEV, MODIFIERS: [place] [id number] INJ PARAVERT F JNT L/S 2 LEV, MODIFIERS: RT [id number] RADXPS IN END [id number] PXD DISPOSITION & COMMUNICATION FOLLOW UP 3 WEEKS ELECTRONICALLY SIGNED BY WAGNER SIMPSON MD, ON 08/24/2019 AT 10:01 AM EST DISCLAIMER : THIS IS A VISIT SUMMARY EXTRACTED FROM THE [employer] CHART. IT IS NOT A COPY OF THE [employer] PROGRESS NOTE. MTDD
== END ==
LOC: M PAIN 13:45
PROVIDERS: ATTEND Anesthesiology
DX: M47.816 Spondylosis without myelopathy or radiculopathy, lumbar region (principal); M47.817 Spondylosis without myelopathy or radiculopathy, lumbosacral region; Z88.2 Allergy status to sulfonamides; Z88.5 Allergy status to narcotic agent; Z88.6 Allergy status to analgesic agent; Z88.8 Allergy status to other drugs, medicaments and biological substances; Z79.899 Other long term (current) drug therapy
CPT/HCPCS: 64493; 64494; Q9967

== ENCOUNTER → 2019-08-22 | Outpatient (REF) | payer OTHER ==
[~2019-08-22] MED LIST changes: -BUPIVACAINE HCL 0.25% 30 ML VIAL As Ordered ONE; -ISOVUE-M 300 61% 15ML VIAL (Q9967) As Ordered ONE; -LIDOCAINE 1% SDV INJ 30 ML VIAL As Ordered ONE
[2019-08-22 13:52] LABS: BASO # 0.1 10^3/uL (0.0-0.2); BASO % 0.5 % (0.0-1.0); EOS # 0.4 10^3/uL (0.0-0.5); EOS % 3.4 % (0.0-3.0); HEMATOCRIT 41.2 % (36.0-47.0); HEMOGLOBIN 13.4 g/dl (12.0-15.5); LYMPH # 1.8 10^3/uL (1.5-5.0); LYMPH % 17.1 % (24.0-44.0); MEAN CORPUSCULAR HEMOGLOBIN 31.5 pg (27.0-33.0); MEAN CORPUSCULAR HGB CONC 32.5 g/dl (32.0-36.5); MEAN CORPUSCULAR VOLUME 96.9 fl (80.0-96.0); MONO # 0.8 10^3/uL (0.0-0.8); MONO % 7.9 % (0.0-5.0); NEUTROPHILS # 7.3 10^3/uL (1.5-8.5); NEUTROPHILS % 70.8 % (36.0-66.0); PLATELET COUNT, AUTOMATED 237 10^3/uL (150-450); RED BLOOD COUNT 4.25 10^6/uL (4.00-5.40); WHITE BLOOD COUNT 10.4 10^3/uL (4.0-10.0)
[2019-08-22 14:26] LABS: ERYTHROCYTE SEDIMENTATION RATE 21 mm/hr (0-30)
== END ==
LOC: M SFHCRHEU 09:20
PROVIDERS: ATTEND Internal Medicine Rheumatology
DX: M06.9 Rheumatoid arthritis, unspecified (principal)

== ENCOUNTER → 2019-08-24 | Outpatient (CLI) | payer OTHER ==
--- NOTE | 2019-09-01 01:49 | ECWPNPC ---
PATIENT NAME: IFRAH LINDA : 1955 GENDER: FEMALE VISIT DATE: 08/24/2019 DISCHARGE DATE: 08/24/19 1502 VISIT LOCKED DATE TIME: PHYSICIAN: TEAGAN CALVILLO RESOURCE: TEAGAN CALVILLO REASON FOR APPOINTMENT 1. W/C POST PROC HISTORY OF PRESENT ILLNESS HISTORY OF PRESENT ILLNESS: PAIN THE PATIENT DESCRIBES THE PAIN... HERE FOR POST PROCEDURE F/U.HAD RIGHT L4/5-L5/S1 LFB DIAGNOSTIC ON 08/10/19.REPORTING NO IMPROVEMENT EVEN FOR A SHORT TIME POST PROCEDURE.SHE IS VERY UNCOMFORTABLE TODAY AND STATES HER RIGHT LEG IS GETTING WORSE AND GIVES OUT ON HER AT TIMES.STATES PAIN FEELS LIKE PAIN SHE HAD PRIOR TO HAVING LUMBAR SURGERY SEVERAL YEARS AGO.REPORTING DIFFICULTY WITH SLEEP DUE TO SEVERE PAIN.DENIES BOWEL OR BLADDER INCONTINENCE.RATING PAIN VAS 8-9/10.THIS A WORK RELATED INJURY DOI FEBRUARY 1997.CURRENT CHRONIC PAIN MEDICATION FOR WORK RELATED INJURY:SOMA 350MG TID.FINDS THIS MEDICINE EFFECTIVE AT REDUCING HER REGULAR CHRONIC PAIN BUT OVER THE PAST 3 MONTHS PAIN HAS BEEN SEVERE DESPITE SOMA.SHE HAS MULTIPLE DRUG INTOLERANCES.NO RECENT MRI AND DUE TO CHANGE IN HER LOW BACK PAIN WITH NEW ONSET OF RIGHT LEG RADICULAR SYMPTOMS WE WILL NEED ANOTHER MRI.SHE IS INTERESTED IN HAVING A SURGICAL OPINION. FALL RISK SCREENING: SCREENING :NO FALLS REPORTED IN THE LAST YEAR CURRENT MEDICATIONS TAKING MAGNESIUM 250 MG TABLET 1 TAB(S) ORALLY TWICE A DAY TAKING CALCIUM 600 + D 600-400 MG-UNIT TABLET 1 TABLET ORALLY TWICE A DAY TAKING MULTIVITAMINS OTC TABLET 1 TAB(S) ORALLY ONCE A DAY TAKING IBUPROFEN 200 MG TABLET 3 TABLETS ORALLY NEEDED 3X/DAY TAKING VITAMIN D 2000 UNIT TABLET 1 TAB(S) ORALLY ONCE A DAY TAKING LIDOCAINE 5 % PATCH 1 PATCH TO INTACT SKIN REMOVE AFTER 12 HOURS EXTERNALLY NEEDED TAKING FISH OIL 1000 MG CAPSULE 1 CAPSULE ORALLY BID TAKING TAGAMET HB 200 MG TABLET 1 TABLET NEEDED ORALLY THE DAY BEFORE AND DAY AFTER REMICADE INJECTION TAKING REFRESH OPTIVE 0.5-0.9 % SOLUTION 1 DROP INTO AFFECTED EYE NEEDED OPHTHALMIC QID TAKING METAMUCIL 1 CAPFUL 1 SCOOP TWICE ADAY NEEDED TAKING INFLIXIMAB-DYYB 100 MG SOLUTION RECONSTITUTED DIRECTED INTRAVENOUS EVERY 8 WEEKS, NOTES: AKA: INFLECTRA, LAST DOSE 07/29/19 TAKING METHOTREXATE 2.5 MG TABLET 6 TABS ORALLY ONCE A WEEK TAKING FOLIC ACID 1 MG TABLET 1 TABLET ORALLY ONCE A DAY TAKING SOMA 350 MG TABLET 1 TABLET ORALLY Q8H TID MDD3 TAKING GABAPENTIN 100 MG CAPSULE 1 CAPSULE ORALLY THREE TIMES DAILY NOT-TAKING MECLIZINE HCL 25 MG TABLET 1 TAB ORALLY THREE TIMES DAILY NEEDED, NOTES: RARELY NOT-TAKING ONDANSETRON 4 MG TABLET DISPERSIBLE 1 TABLET ON THE TONGUE AND ALLOW TO DISSOLVE ORALLY EVERY 8 HRS PRN MEDICATION LIST REVIEWED AND RECONCILED WITH THE PATIENT PAST MEDICAL HISTORY RHEUMATOID ARTHRITIS PSORIATIC ARTHRITIS PSORIASIS ALLERGIES GOLD SHOTS: ITCHING - ALLERGY OTC CREAMS, LOTIONS AND DETERGENTS: RASH, ITCHING - ALLERGY ASPIRIN: HIVES - ALLERGY LACTOSE: TERRIBLE GAS - ALLERGY PLAQUENIL: EXTREME ITCHING, BLISTERS - ALLERGY TRAMADOL: CONSTIPATED, NAUSEA, EXTREMELY DRUGGED - ALLERGY LODINE: ITCHING - ALLERGY SULFA (FOR ALLERGY USE ONLY): RASH - ALLERGY SURGICAL HISTORY DISKECTOMY-BACK SURGERY 1997 CERVICAL CERCLAGE DURING COLONOSCOPY, DR. OVALLE. 07/2013 FAMILY HISTORY FATHER: 86 YRS, COLORECTAL CANCER @ 83, PROSTATE CA IN HIS LATE 70'S MOTHER: ALIVE 88 YRS DAUGHTER(S): PSORIATIC ARTHRITIS PATERNAL GRAND MOTHER: BREAST CANCER IN HER 80'S 3DAUGHTER(S) - HEALTHY. SOCIAL HISTORY GENERAL: TOBACCO USE ARE YOU A:NONSMOKER HIV / HEP-C SCREENING HIV TEST OFFERED TO PATIENT:YES DATE OFFERED:06/24/2019 TEST ACCEPTED:NO REASON:PATIENT DECLINED BROCHURE PROVIDED TO PATIENTNO OTHERS AT HOME: SPOUSE. EDUCATION LEVEL OF EDUCATION:NOT FINISHED COLLEGE DIET: REGULAR. LANGUAGE LANGUAGES SPOKEN:ARABIC DOMESTIC VIOLENCE DO YOU FEEL SAFE IN YOUR ENVIRONMENT?YES BMI CARE GOAL FOLLOW-UP ABOVE NORMAL BMI FOLLOW-UPDIETARY NEEDS EDUCATION, WEIGHT MONITORING RECREATIONAL DRUG USE DRUG USE?NO EXERCISE: WALKS IS LIMITED DUE TO BACK ISSUES. LEARNING BARRIERS / SPECIAL NEEDS CHANGE FROM LAST VISIT?NO BARRIERS TO LEARNING?NO HEARING IMPAIRED?NO VISION IMPAIRED?YES COGNITIVELY IMPAIRED?NO :CORRECTIVE LENSES READINESS TO LEARN?YES LEARNING PREFERENCES?NO LEARNING CAPABILITIES PRESENT?YES EMOTIONAL BARRIERS?NO SPECIAL DEVICES?NO PAIN CLINIC PFS, CLERGY, PUBLIC HEALTH REFERRALS WAS THE PROVIDER NOTIFIED OF ANY PERTINENT INFO?YES HAS THE PATIENT BEEN EDUCATED REGARDING HIS/HER PLAN OF CARE?YES HAS THE PATIENT BEEN EDUCATED REGARDING PAIN, THE RISK FOR PAIN, THE IMPORTANCE OF EFFECTIVE PAIN MANAGEMENT, AND THE PAIN ASSESSMENT PROCESS?YES LATEX QUESTIONNAIRE LATEX ALLERGY : HAVE YOU EVER DEVELOPED ANY TYPE OF REACTION AFTER HANDLING LATEX PRODUCTS SUCH RUBBER GLOVES, CONDOMS, DIAPHRAGMS, BALLOONS, SOCKS, OR UNDERWEAR?NO LATEX ALLERGY : HAVE YOU EVER DEVELOPED ANY TYPE OF REACTION DURING OR AFTER DENTAL APPOINTMENT, VAGINAL/RECTAL EXAMINATION, SURGICAL PROCEDURE, OR ANY OTHER EXPOSURE?NO LATEX RISK : HAVE YOU EVER HAD ANY DIFFICULTY BREATHING OR HIVES AFTER EATING OR HANDLING ANY FRUITS, OR VEGETABLES; SUCH KIWI, BANANAS, STONE FRUITS, OR CHESTNUTSNO LATEX RISK : DO YOU HAVE A PREVIOUS PERSONAL HISTORY OF MORE THAN NINE SURGERIES, SPINA BIFIDA, OR REPEATED CATHERIZATIONS? NO LATEX RISK : ARE YOU FREQUENTLY EXPOSED TO LATEX PRODUCTS IN YOUR OCCUPATION?NO DATE ASKED : 08/24/2019 CAFFEINE CAFFEINE USE?NO ADVANCE DIRECTIVE ADVANCE DIRECTIVE DISCUSSED WITH PATIENT:YES PT STATES THAT SHE HAS HCP MITESH LINDA SPOUSE [phone] MARITAL STATUS: . 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 SEXUAL HX HAD SEX IN THE LAST 12 MONTHS (VAGINAL, ORAL, OR ANAL)?YES WITHMEN ONLY USE PROTECTION?NO LMP:POST MENOPAUSE HAVE YOU EVER HAD AN STD?NO REVIEWED 03/05/18 0853 BVREVIEWED WITH PATIENT 06/24/18 0912 JS11/25/18 REVIEWED WITH PT. ADREVIEWED WITH PATIENT 03/01/19 0854 JSREVIEWED WITH PATIENT 07/12/19 LASREVIEWED WITH PATIENT 07/25/19 1029 JSREVIEWED WITH PATIENT 08/10/19 1320 BVREVIEWED WITH PATIENT 08-24-19 DS. HOSPITALIZATION/MAJOR DIAGNOSTIC PROCEDURE SURGERIES REVIEW OF SYSTEMS REVIEWED BY: PROVIDER: TEAGAN STEVE . CONSTITUTIONAL: ANY CHANGE IN YOUR MEDICAL CONDITION? NO . CHILLS NO . FEVER NO . INFECTION: DO YOU HAVE NEW INFECTIONS? YES, PT STATES THAT SHE STARTED WITH A COLD YESTERDAY . DO YOU HAVE HISTORY OF MRSA? NO . MUSCULOSKELETAL: ANY NEW PATTERNS OF PAIN OR NUMBNESS? NO . GASTROENTEROLOGY: ANY NEW CHANGE IN BOWEL CONTROL? NO . GENITOURINARY: ANY NEW CHANGE IN BLADDER CONTROL? NO . IS THERE A CHANCE YOU COULD BE ? NO . HEMATOLOGY/LYMPH: DO YOU TAKE ANY BLOOD THINNERS? (FOR EXAMPLE- COUMADIN, PLAVIX, AGGRENOX, PLATEL, PRADAXA, OR XARELTO) NO . WHEN WAS YOUR LAST DOSE? DATE: TIME: . NEUROLOGY: HAVE YOU FALLEN IN THE PAST 12 MONTHS? NO . ANY NEW EXTREMITY NUMBNESS OR WEAKNESS? NO . CARDIOLOGY: DO YOU HAVE A PACEMAKER OR DEFIBRILLATOR? NO . RESPIRATORY: HAVE YOU BEEN SICK IN THE PAST WEEK? NO . FEVER NO . FLU LIKE SYMPTOMS? NO . COUGH NO . INTEGUMENTARY: DO YOU HAVE ANY RASHES OR OPEN SORES? NO . ALLERGIC/IMMUNO: ARE YOU ALLERGIC TO IV DYE? NO . ANY NEW ALLERGIES? NO . PSYCHIATRIC: DO YOU HAVE THOUGHTS OF HURTING YOURSELF OR SOMEONE ELSE? NO . ARE YOU ABUSED, NEGLECTED, OR IN AN UNSAFE ENVIRONMENT? NO . ENDOCRINOLOGY: ARE YOU DIABETIC? NO . OTHER: DO YOU NEED ANY PRESCRIPTIONS? NO . IF YES, PLEASE LIST: ____ . ANY NEW PROBLEMS WITH YOUR MEDICATIONS? PT STATES THAT GABAPENTIN IS NOT WORKING, STILL TAKING IBUPROFEN AND GABAPENTIN AND NOT HAVING RELIEF . WHEN DID YOU LAST EAT? ____ . WHEN DID YOU LAST DRINK? ____ . WHAT DID YOU LAST DRINK? ____ . NAME OF PERSON DRIVING YOU HOME? ____ . DO YOU HAVE ANY OTHER QUESTIONS OR CONCERNS NO . VITAL SIGNS WT 176.4 LBS, HT 65.25 IN, BMI 29.13 INDEX, BP 130/61 MM HG, HR 79 /MIN, RR 18 /MIN, TEMP 97.2 F, OXYGEN SAT % 99%, SAFE IN ENV? (Y/N) Y, NA INITIALS AW 1353, REVIEWED BY: MARION. EXAMINATION GENERAL EXAMINATION: GENERAL AWAKE,ALERT ,PLEAASANT . PSYCH AFFECT NORMAL . LUNGS: LUNG GALLARDO ARE CLEAR TO AUSCULTATION BILATERALLY. GOOD MOVEMENT OF AIR . HEART: S1, S2 IN A REGULAR RATE AND RHYTHM. NO SIGNIFICANT MURMURS, RUBS OR GALLOPS NOTED . MUSCULOSKELETAL: LUMBOSACRAL SPINE:, PALPATION: POSITIVE FOR PAIN OVER L/S SPINE. POSITIVE FOR PAIN OVER L/S PARSPINALS . NEUROLOGIC EXAM: WEAKNESS NOTED OVER RIGHT LEG. DIAGNOSTIC TESTS REVIEWED MRI L/S SPINE-2013. 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 (PRIMARY) TREATMENT SPONDYLOSIS OF LUMBOSACRAL JOINT CONTINUE SOMA TABLET, 350 MG, 1 TABLET, ORALLY, Q8H TID MDD3 INCREASE GABAPENTIN CAPSULE, 300 MG, 1 CAPSULE, ORALLY, THREE TIMES DAILY, 30 DAYS, 90, REFILLS 2 [facility] MRI LS SPINE W/O AND WITH [id number] NOTES: W/C MRI L/S SPINE WITH AND WITHOUT CONTRAST DUE TO SEVERE INCREASE IN LOW BACK PAIN WITH RIGHT LEG RADICULOPAHY OVER THE PAST 3 MONTHS WHICH IS REFRACTORY TO RECENT INTERVENTIONAL THERAPY TRIALS AND MEDICATIONS.W/C REFER TO [facility] INSTRUCTED PATIENT TO REPORT TO ER IF SHE HAS SEVERE INCREASE IN LOW BACK PAIN OR INCREASED WEAKNESS OVER RIGHT LEG,LOSS OF BOWEL OR BLADDER CONTROL THESES SYMPTOMS WOULD WARRENT A SURGICAL EMERGENCY.SLOWLY INCREASE GABAPENTIN TO 300MG 3X DAILY TOLERATEDREVIEWED GABAPENTIN MED CHANGE WITH PATIENT AND HANDED PT WRITTEN EDUCATION ON GABAPENTINNOTIFIED PT OF MRI ORDER, PT ACKNOWLEDGED UNDERSTANDING OF NEW ORDER. DS. REFERRAL TO:GARRET NGUYỄNNEUROSURGERMignon REASON:W/C POST LAMINECTOMY CHRONIC LBP WITH RECENT NEW ONSET OF RIGHT LEG RADICULAR SYMPTOMS AND SEVERE INCREASE IN LBP.REFRACTORY TO INJECTION THERAPY OVER THE PAST YEAR PROCEDURES PN WORKMANS' COMP OPINION IN YOUR OPINION, WAS THE INCIDENT THAT THE PATIENT DESCRIBED THE COMPETENT MEDICAL CAUSE OF THIS INJURY/ILLNESS? YES ARE THE PATIENT'S COMPLAINTS CONSISTENT WITH HIS/HER HISTORY OF THE INJURY/ILLNESS? YES IS THE PATIENT'S HISTORY OF THE INJURY/ILLNESS CONSISTENT WITH YOUR OBJECTIVE FINDING? YES WHAT IS THE PERCENTAGE OF TEMPORARY IMPAIRMENT? MODERATE TO MARKED = 66.7% IS THE PATIENT WORKING? NO DOCTOR ON SITE: WAGNER HOPE MD PREVENTIVE MEDICINE PAIN CLINIC TEACHING: MEDICATIONS GABAPENTIN MED CHANGE, UPDATED INFORMATION WITH PT, HANDED PT WRITTEN MATERIAL AND PT ACKNOWLEDGED UNDERSTANDING. DS. THE PATIENT HAS BEEN EDUCATED REGARDING PAIN, THE RISK FOR PAIN, THE IMPORTANCE OF EFFECTIVE PAIN MANAGEMENT, AND THE PAIN ASSESSMENT PROCESS. : PT GIVEN ORDER FOR MRI AND EDUCATED REGARDING MRI PROCESS. PT ACKNOWLEDGED UNDERSTANDING. DS PROCEDURE CODES FA211 ESTABILISHED PATIENT [facility] FACILITY CHARGE DISPOSITION & COMMUNICATION FOLLOW UP 4-6WKS (REASON: W/C 4-6WKS MRI REVIEW) ELECTRONICALLY SIGNED BY EVI CHRISTENSEN ON 08/31/2019 AT 01:44 PM EST DISCLAIMER : THIS IS A VISIT SUMMARY EXTRACTED FROM THE [employer] CHART. IT IS NOT A COPY OF THE [employer] PROGRESS NOTE. [place]
== END ==
LOC: M PAIN 14:00
PROVIDERS: ATTEND Nurse Practitioner Family
DX: M47.817 Spondylosis without myelopathy or radiculopathy, lumbosacral region (principal); Z88.2 Allergy status to sulfonamides; Z88.5 Allergy status to narcotic agent; Z88.6 Allergy status to analgesic agent; Z88.8 Allergy status to other drugs, medicaments and biological substances; Z91.011 Allergy to milk products; Z79.899 Other long term (current) drug therapy

== ENCOUNTER → 2019-09-12 | Outpatient (CLI) | payer OTHER ==
[2019-09-12 18:17] LABS: BLOOD UREA NITROGEN 19 MG/DL (7-18); CREATININE FOR GFR 0.69 MG/DL (0.55-1.30); GLOMERULAR FILTRATION RATE > 60.0 (>45)
== END ==
LOC: M WUC 13:48
PROVIDERS: ATTEND Nurse Practitioner Family
DX: M47.817 Spondylosis without myelopathy or radiculopathy, lumbosacral region (principal)

== ENCOUNTER → 2019-11-15 | Outpatient (CLI) | payer OTHER ==
[~2019-11-15] MED LIST changes: +CODCAP10 PO; +GABA-1171 PO; +NEUR300C PO; +ZYRTTAB8 PO
--- NOTE | 2019-11-16 02:15 | ECWPNPC ---
PATIENT NAME: IFRAH LINDA : 1955 GENDER: FEMALE VISIT DATE: 11/15/2019 DISCHARGE DATE: 11/15/1942 VISIT LOCKED DATE TIME: PHYSICIAN: TEAGAN CALVILLO RESOURCE: TEAGAN CALVILLO REASON FOR APPOINTMENT 1. FOLLOW UP HISTORY OF PRESENT ILLNESS HISTORY OF PRESENT ILLNESS: PAIN THE PATIENT DESCRIBES THE PAIN... HERE FOR FOLLOW-UP OF LOW BACK PAIN AND WITH RIGHT LEG RADICULOPATHY. OVER THE PAST 3 MONTHS, SHE'S BEEN EXPERIENCING A FLAREUP IN HER PAIN AND PARESTHESIAS. HAS SEEN SURGEON HER PER OUR RECOMMENDATIONS AFTER REVIEWING MRI OF THE LS-SPINE. SHE HAS UPCOMING APPOINTMENT WITH A SURGEON. GABAPENTIN STARTED AT HER LAST VISIT HAS BEEN HELPFUL WITH LESS BURNING PAIN AND ELECTRICAL PAIN IN HER RIGHT LOWER EXTREMITY. CURRENTLY TAKING GABAPENTIN 300 3 TIMES A DAY. RATING PAIN VAS7/10.THIS A WORK RELATED INJURY DOI FEBRUARY 1997.CURRENT CHRONIC PAIN MEDICATION FOR WORK RELATED INJURY:SOMA 350MG TID.FINDS THIS MEDICINE EFFECTIVE AT REDUCING HER PAIN AND IMPROVING FUNCTIONAL ABILITY.SHE HAS MULTIPLE DRUG INTOLERANCES. FALL RISK SCREENING: SCREENING :NO FALLS REPORTED IN THE LAST YEAR CURRENT MEDICATIONS TAKING MAGNESIUM 250 MG TABLET 1 TAB(S) ORALLY TWICE A DAY, NOTES: HOLDING CURRENTLY TAKING CALCIUM 600 + D 600-400 MG-UNIT TABLET 1 TABLET ORALLY TWICE A DAY TAKING MULTIVITAMINS OTC TABLET 1 TAB(S) ORALLY ONCE A DAY TAKING IBUPROFEN 200 MG TABLET 3 TABLETS ORALLY NEEDED 3X/DAY TAKING VITAMIN D 2000 UNIT TABLET 1 TAB(S) ORALLY ONCE A DAY, NOTES: CURRENTLLY HOLDING TAKING LIDOCAINE 5 % PATCH 1 PATCH TO INTACT SKIN REMOVE AFTER 12 HOURS EXTERNALLY NEEDED, NOTES: ONLY NEEDED TAKING FISH OIL 1000 MG CAPSULE 1 CAPSULE ORALLY BID TAKING TAGAMET HB 200 MG TABLET 1 TABLET NEEDED ORALLY THE DAY BEFORE AND DAY AFTER REMICADE INJECTION TAKING REFRESH OPTIVE 0.5-0.9 % SOLUTION 1 DROP INTO AFFECTED EYE NEEDED OPHTHALMIC QID TAKING METAMUCIL 1 CAPFUL 1 SCOOP TWICE ADAY NEEDED TAKING INFLIXIMAB-DYYB 100 MG SOLUTION RECONSTITUTED DIRECTED INTRAVENOUS EVERY 8 WEEKS, NOTES: AKA: INFLECTRA, LAST DOSE 07/29/19 TAKING METHOTREXATE 2.5 MG TABLET 6 TABS ORALLY ONCE A WEEK TAKING FOLIC ACID 1 MG TABLET 1 TABLET ORALLY ONCE A DAY TAKING SOMA 350 MG TABLET 1 TABLET ORALLY Q8H TID MDD3 TAKING GABAPENTIN 300 MG CAPSULE 1 CAPSULE ORALLY THREE TIMES DAILY NOT-TAKING GABAPENTIN 100 MG CAPSULE 1 CAPSULE ORALLY THREE TIMES DAILY, NOTES: 08/10/19 0600 NOT-TAKING MECLIZINE HCL 25 MG TABLET 1 TAB ORALLY THREE TIMES DAILY NEEDED, NOTES: RARELY NOT-TAKING ONDANSETRON 4 MG TABLET DISPERSIBLE 1 TABLET ON THE TONGUE AND ALLOW TO DISSOLVE ORALLY EVERY 8 HRS PRN MEDICATION LIST REVIEWED AND RECONCILED WITH THE PATIENT PAST MEDICAL HISTORY RHEUMATOID ARTHRITIS PSORIATIC ARTHRITIS PSORIASIS ALLERGIES GOLD SHOTS: ITCHING - ALLERGY OTC CREAMS, LOTIONS AND DETERGENTS: RASH, ITCHING - ALLERGY ASPIRIN: HIVES - ALLERGY LACTOSE: TERRIBLE GAS - ALLERGY PLAQUENIL: EXTREME ITCHING, BLISTERS - ALLERGY TRAMADOL: CONSTIPATED, NAUSEA, EXTREMELY DRUGGED - ALLERGY LODINE: ITCHING - ALLERGY SULFA (FOR ALLERGY USE ONLY): RASH - ALLERGY SURGICAL HISTORY DISKECTOMY-BACK SURGERY 1997 CERVICAL CERCLAGE DURING COLONOSCOPY, DR. OVALLE. 07/2013 FAMILY HISTORY FATHER: 86 YRS, COLORECTAL CANCER @ 83, PROSTATE CA IN HIS LATE 70'S MOTHER: ALIVE 89 YRS DAUGHTER(S): PSORIATIC ARTHRITIS PATERNAL GRAND MOTHER: BREAST CANCER IN HER 80'S 3DAUGHTER(S) - HEALTHY. SOCIAL HISTORY GENERAL: TOBACCO USE ARE YOU A:NONSMOKER HIV / HEP-C SCREENING HIV TEST OFFERED TO PATIENT:YES DATE OFFERED:06/24/2019 TEST ACCEPTED:NO REASON:PATIENT DECLINED BROCHURE PROVIDED TO PATIENTNO OTHERS AT HOME: SPOUSE. EDUCATION LEVEL OF EDUCATION:NOT FINISHED COLLEGE DIET: REGULAR. LANGUAGE LANGUAGES SPOKEN:GHANAIAN DOMESTIC VIOLENCE DO YOU FEEL SAFE IN YOUR ENVIRONMENT?YES BMI CARE GOAL FOLLOW-UP ABOVE NORMAL BMI FOLLOW-UPDIETARY NEEDS EDUCATION, WEIGHT MONITORING RECREATIONAL DRUG USE DRUG USE?NO EXERCISE: WALKS IS LIMITED DUE TO BACK ISSUES. LEARNING BARRIERS / SPECIAL NEEDS CHANGE FROM LAST VISIT?NO BARRIERS TO LEARNING?NO HEARING IMPAIRED?NO VISION IMPAIRED?YES COGNITIVELY IMPAIRED?NO :CORRECTIVE LENSES READINESS TO LEARN?YES LEARNING PREFERENCES?NO LEARNING CAPABILITIES PRESENT?YES EMOTIONAL BARRIERS?NO SPECIAL DEVICES?NO PAIN CLINIC PFS, CLERGY, PUBLIC HEALTH REFERRALS WAS THE PROVIDER NOTIFIED OF ANY PERTINENT INFO?YES HAS THE PATIENT BEEN EDUCATED REGARDING HIS/HER PLAN OF CARE?YES HAS THE PATIENT BEEN EDUCATED REGARDING PAIN, THE RISK FOR PAIN, THE IMPORTANCE OF EFFECTIVE PAIN MANAGEMENT, AND THE PAIN ASSESSMENT PROCESS?YES LATEX QUESTIONNAIRE LATEX ALLERGY : HAVE YOU EVER DEVELOPED ANY TYPE OF REACTION AFTER HANDLING LATEX PRODUCTS SUCH RUBBER GLOVES, CONDOMS, DIAPHRAGMS, BALLOONS, SOCKS, OR UNDERWEAR?NO LATEX ALLERGY : HAVE YOU EVER DEVELOPED ANY TYPE OF REACTION DURING OR AFTER DENTAL APPOINTMENT, VAGINAL/RECTAL EXAMINATION, SURGICAL PROCEDURE, OR ANY OTHER EXPOSURE?NO DATE ASKED : 08/24/2019 LATEX RISK : HAVE YOU EVER HAD ANY DIFFICULTY BREATHING OR HIVES AFTER EATING OR HANDLING ANY FRUITS, OR VEGETABLES; SUCH KIWI, BANANAS, STONE FRUITS, OR CHESTNUTSNO LATEX RISK : DO YOU HAVE A PREVIOUS PERSONAL HISTORY OF MORE THAN NINE SURGERIES, SPINA BIFIDA, OR REPEATED CATHERIZATIONS? NO LATEX RISK : ARE YOU FREQUENTLY EXPOSED TO LATEX PRODUCTS IN YOUR OCCUPATION?NO CAFFEINE CAFFEINE USE?NO ADVANCE DIRECTIVE ADVANCE DIRECTIVE DISCUSSED WITH PATIENT:YES PT STATES THAT SHE HAS HCP MITESH LINDA SPOUSE [phone] MARITAL STATUS: . 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 SEXUAL HX HAD SEX IN THE LAST 12 MONTHS (VAGINAL, ORAL, OR ANAL)?YES WITHMEN ONLY USE PROTECTION?NO LMP:POST MENOPAUSE HAVE YOU EVER HAD AN STD?NO REVIEWED 03/05/18 0853 BVREVIEWED WITH PATIENT 06/24/18 0912 JS11/25/18 REVIEWED WITH PT. ADREVIEWED WITH PATIENT 03/01/19 0854 JSREVIEWED WITH PATIENT 07/12/19 LASREVIEWED WITH PATIENT 07/25/19 1029 JSREVIEWED WITH PATIENT 08/10/19 1320 BVREVIEWED WITH PATIENT 08-24-19 DS. HOSPITALIZATION/MAJOR DIAGNOSTIC PROCEDURE SURGERIES REVIEW OF SYSTEMS REVIEWED BY: PROVIDER: TEAGAN STEVE . CONSTITUTIONAL: ANY CHANGE IN YOUR MEDICAL CONDITION? NO . CHILLS NO . FEVER NO . INFECTION: DO YOU HAVE NEW INFECTIONS? NO . DO YOU HAVE HISTORY OF MRSA? NO . MUSCULOSKELETAL: ANY NEW PATTERNS OF PAIN OR NUMBNESS? NO . GASTROENTEROLOGY: ANY NEW CHANGE IN BOWEL CONTROL? NO . GENITOURINARY: ANY NEW CHANGE IN BLADDER CONTROL? NO . IS THERE A CHANCE YOU COULD BE ? NO . HEMATOLOGY/LYMPH: DO YOU TAKE ANY BLOOD THINNERS? (FOR EXAMPLE- COUMADIN, PLAVIX, AGGRENOX, PLATEL, PRADAXA, OR XARELTO) NO . WHEN WAS YOUR LAST DOSE? DATE: TIME: . NEUROLOGY: HAVE YOU FALLEN IN THE PAST 12 MONTHS? NO . ANY NEW EXTREMITY NUMBNESS OR WEAKNESS? NO . CARDIOLOGY: DO YOU HAVE A PACEMAKER OR DEFIBRILLATOR? NO . RESPIRATORY: HAVE YOU BEEN SICK IN THE PAST WEEK? NO . FEVER NO . FLU LIKE SYMPTOMS? NO . COUGH NO . INTEGUMENTARY: DO YOU HAVE ANY RASHES OR OPEN SORES? NO . ALLERGIC/IMMUNO: ARE YOU ALLERGIC TO IV DYE? NO . ANY NEW ALLERGIES? NO . PSYCHIATRIC: DO YOU HAVE THOUGHTS OF HURTING YOURSELF OR SOMEONE ELSE? NO . ARE YOU ABUSED, NEGLECTED, OR IN AN UNSAFE ENVIRONMENT? NO . ENDOCRINOLOGY: ARE YOU DIABETIC? NO . OTHER: DO YOU NEED ANY PRESCRIPTIONS? NO . IF YES, PLEASE LIST: ____ . ANY NEW PROBLEMS WITH YOUR MEDICATIONS? NO . WHEN DID YOU LAST EAT? ____ . WHEN DID YOU LAST DRINK? ____ . WHAT DID YOU LAST DRINK? ____ . NAME OF PERSON DRIVING YOU HOME? ____ . DO YOU HAVE ANY OTHER QUESTIONS OR CONCERNS NO . VITAL SIGNS WT 180.0 LBS, HT 65.25 IN, BMI 29.72 INDEX, BP 132/60 MM HG, HR 77 /MIN, RR 18 /MIN, TEMP 97.3 F, OXYGEN SAT % 98%, NA INITIALS AW 0847, REVIEWED BY: KG. EXAMINATION GENERAL EXAMINATION: GENERAL AWAKE,ALERT ,PLEASANT . PSYCH AFFECT NORMAL . LUNGS: LUNG GALLARDO ARE CLEAR TO AUSCULTATION BILATERALLY. GOOD MOVEMENT OF AIR . HEART: S1, S2 IN A REGULAR RATE AND RHYTHM. NO SIGNIFICANT MURMURS, RUBS OR GALLOPS NOTED . MUSCULOSKELETAL: MUSCLE STRENGTH TESTING 5/5 BILATERAL LOWER EXTREMITIES. NEUROLOGIC EXAM:DESCRIBES AREA OF NUMBNESS RIGHT POSTERIOR CALF WHICH IS CHRONIC SINCE SURGERY SEVERAL YEARS AGO, OTHERWISE NORMAL SENSATION TO LIGHT TOUCH LOWER EXTREMITIES. . DIAGNOSTIC TESTS REVIEWEDMRI L/S SPINE 09/22/2019 . 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 (PRIMARY) INTERVERTEBRAL DISC DISORDERS WITH RADICULOPATHY, LUMBAR REGION - M51.16 TREATMENT SPONDYLOSIS OF LUMBOSACRAL JOINT REFILL SOMA TABLET, 350 MG, 1 TABLET, ORALLY, Q8H TID MDD3, 30 DAYS, 90, REFILLS 2 REFILL GABAPENTIN CAPSULE, 300 MG, 1 CAPSULE, ORALLY, THREE TIMES DAILY, 30 DAY(S), 90, REFILLS 2 PROCEDURES PN WORKMANS' COMP OPINION IN YOUR OPINION, WAS THE INCIDENT THAT THE PATIENT DESCRIBED THE COMPETENT MEDICAL CAUSE OF THIS INJURY/ILLNESS? YES ARE THE PATIENT'S COMPLAINTS CONSISTENT WITH HIS/HER HISTORY OF THE INJURY/ILLNESS? YES IS THE PATIENT'S HISTORY OF THE INJURY/ILLNESS CONSISTENT WITH YOUR OBJECTIVE FINDING? YES WHAT IS THE PERCENTAGE OF TEMPORARY IMPAIRMENT? MODERATE TO MARKED = 66.7% IS THE PATIENT WORKING? NO DOCTOR ON SITE: WAGNER HOPE MD PROCEDURE CODES FA211 ESTABILISHED PATIENT [facility] CHARGE DISPOSITION & COMMUNICATION FOLLOW UP 2 MONTHS (REASON: MED MGMNT/WORKMANS COMP) ELECTRONICALLY SIGNED BY EIV CHRISTENSEN ON 11/15/2019 AT 10:14 AM EST DISCLAIMER : THIS IS A VISIT SUMMARY EXTRACTED FROM THE [employer] CHART. IT IS NOT A COPY OF THE [employer] PROGRESS NOTE. [place]
== END ==
LOC: M PAIN 08:45
PROVIDERS: ATTEND Nurse Practitioner Family
DX: M47.817 Spondylosis without myelopathy or radiculopathy, lumbosacral region (principal); M51.16 Intervertebral disc disorders with radiculopathy, lumbar region; L40.50 Arthropathic psoriasis, unspecified; M06.9 Rheumatoid arthritis, unspecified; Z79.899 Other long term (current) drug therapy; Z88.5 Allergy status to narcotic agent; Z88.6 Allergy status to analgesic agent; Z88.8 Allergy status to other drugs, medicaments and biological substances; Z88.2 Allergy status to sulfonamides

== ENCOUNTER 2019-11-18 12:01 | Outpatient (CLI) | payer OTHER ==
[~2019-11-18] VITALS: Ht 158.1 cm; Wt 79.9 kg
[2019-11-18] MEDS ORDERED: EPINEPHrine INJ 1 MG/ML 1ML VIAL IM PRN (12:45)
[2019-11-18] MEDS ORDERED: diphenhydrAMINE INJ 50MG/ML VIAL (J1200) IV PRN (12:45)
[2019-11-18] MEDS ORDERED: methylPREDNISolone INJ 125 MG/2 ML VIAL (J2930) IV PRN (12:45)
[2019-11-18] MEDS ORDERED: ALBUTEROL SULFATE 2.5 MG/0.5 ML INH NEB SOLN INH PRN (12:45)
[2019-11-18] MEDS ORDERED: INFLIXIMAB BIOSIMILAR 400 MG in NS 210 ML IV ONE (13:30)
== END 2019-11-18 13:10 | disposition home or self-care (01) ==
LOC: M INFU 12:01
PROVIDERS: ATTEND Internal Medicine
DX: M06.9 Rheumatoid arthritis, unspecified (principal); Z88.2 Allergy status to sulfonamides; Z88.5 Allergy status to narcotic agent; Z88.6 Allergy status to analgesic agent; Z88.8 Allergy status to other drugs, medicaments and biological substances
CPT/HCPCS: 96365; 96366; Q5103

== ENCOUNTER → 2019-11-21 | Outpatient (REF) | payer OTHER ==
[2019-11-21 12:58] LABS: ALBUMIN 3.9 GM/DL (3.2-5.2); ALT/SGPT 92 U/L (12-78); BILIRUBIN,TOTAL 0.3 MG/DL (0.2-1.0); BLOOD UREA NITROGEN 13 MG/DL (7-18); C REACTIVE PROTEIN QUANTITATIV < 0.30 MG/DL (0.00-0.30); CALCIUM LEVEL 9.9 MG/DL (8.8-10.2); CARBON DIOXIDE LEVEL 27 MEQ/L (21-32); CHLORIDE LEVEL 107 MEQ/L (98-107); CREATININE FOR GFR 0.65 MG/DL (0.55-1.30); GLOMERULAR FILTRATION RATE > 60.0 (>45); GLUCOSE, FASTING 94 MG/DL (70-100); POTASSIUM SERUM 4.4 MEQ/L (3.5-5.1); SODIUM LEVEL 140 MEQ/L (136-145); TOTAL PROTEIN 7.6 GM/DL (6.4-8.2)
[2019-11-21 12:59] LABS: BASO % 0.8 % (0.0-1.0); EOS # 0.3 10^3/uL (0.0-0.5); EOS % 5.7 % (0.0-3.0); HEMATOCRIT 45.2 % (36.0-47.0); HEMOGLOBIN 14.9 g/dl (12.0-15.5); LYMPH # 1.6 10^3/uL (1.5-5.0); LYMPH % 33.5 % (24.0-44.0); MEAN CORPUSCULAR VOLUME 94.2 fl (80.0-96.0); MONO # 0.3 10^3/uL (0.0-0.8); MONO % 6.7 % (0.0-5.0); NEUTROPHILS # 2.5 10^3/uL (1.5-8.5); NEUTROPHILS % 53.1 % (36.0-66.0); PLATELET COUNT, AUTOMATED 237 10^3/uL (150-450); WHITE BLOOD COUNT 4.8 10^3/uL (4.0-10.0)
[2019-11-21 13:32] LABS: ERYTHROCYTE SEDIMENTATION RATE 187 mm/hr (0-30)
== END ==
LOC: M SFHCRHEU 09:01
PROVIDERS: ATTEND Internal Medicine
DX: M06.09 Rheumatoid arthritis without rheumatoid factor, multiple sites (principal)

== ENCOUNTER → 2019-11-29 | Outpatient (CLI) | payer OTHER ==
[2019-11-29 16:46] LABS: BASO % 0.8 % (0.0-1.0); EOS # 0.2 10^3/uL (0.0-0.5); EOS % 4.4 % (0.0-3.0); HEMATOCRIT 42.7 % (36.0-47.0); LYMPH # 1.9 10^3/uL (1.5-5.0); LYMPH % 38.8 % (24.0-44.0); MEAN CORPUSCULAR HEMOGLOBIN 31.3 pg (27.0-33.0); MEAN CORPUSCULAR HGB CONC 32.8 g/dl (32.0-36.5); MEAN CORPUSCULAR VOLUME 95.5 fl (80.0-96.0); MONO # 0.6 10^3/uL (0.0-0.8); MONO % 11.6 % (0.0-5.0); NEUTROPHILS # 2.2 10^3/uL (1.5-8.5); PLATELET COUNT, AUTOMATED 265 10^3/uL (150-450); RED BLOOD COUNT 4.47 10^6/uL (4.00-5.40)
[2019-11-29 16:51] LABS: ALBUMIN 3.7 GM/DL (3.2-5.2); ALT/SGPT 51 U/L (12-78); BILIRUBIN,TOTAL 0.3 MG/DL (0.2-1.0); BLOOD UREA NITROGEN 13 MG/DL (7-18); C REACTIVE PROTEIN QUANTITATIV < 0.30 MG/DL (0.00-0.30); CALCIUM LEVEL 9.4 MG/DL (8.8-10.2); CARBON DIOXIDE LEVEL 32 MEQ/L (21-32); CHLORIDE LEVEL 107 MEQ/L (98-107); CREATININE FOR GFR 0.67 MG/DL (0.55-1.30); GLOMERULAR FILTRATION RATE > 60.0 (>45); GLUCOSE, FASTING 77 MG/DL (70-100); POTASSIUM SERUM 4.6 MEQ/L (3.5-5.1); SODIUM LEVEL 140 MEQ/L (136-145); TOTAL PROTEIN 7.2 GM/DL (6.4-8.2)
[2019-11-29 17:19] LABS: ERYTHROCYTE SEDIMENTATION RATE 19 mm/hr (0-30)
== END ==
LOC: M WUC 11:09
PROVIDERS: ATTEND Internal Medicine
DX: M06.09 Rheumatoid arthritis without rheumatoid factor, multiple sites (principal)

== ENCOUNTER 2020-01-13 10:35 | Outpatient (CLI) | payer OTHER ==
[~2020-01-13] VITALS: Ht 165.7 cm; Wt 79.9 kg
[2020-01-13 10:40] VITALS: BP 130/60
[2020-01-13] MEDS ORDERED: EPINEPHrine INJ 1 MG/ML 1ML AMP IM PRN (10:45)
[2020-01-13] MEDS ORDERED: diphenhydrAMINE 50MG/ML VIAL (J1200) IV PRN (10:45)
[2020-01-13] MEDS ORDERED: ALBUTEROL SULFATE 2.5 MG/0.5 ML INH NEB SOLN INH PRN (10:45)
[2020-01-13] MEDS ORDERED: methylPREDNISolone INJ 125 MG/2 ML VIAL (J2930) IV PRN (10:45)
[2020-01-13 10:51] VITALS: BP 130/60
[2020-01-13] MEDS ORDERED: INFLIXIMAB BIOSIMILAR 400 MG in NS 210 ML IV ONE (11:00)
[2020-01-13 11:15] VITALS: BP 130/60
[2020-01-13 11:30] VITALS: BP 101/55
[2020-01-13 12:15] VITALS: BP 119/59
== END 2020-01-13 12:20 | disposition home or self-care (01) ==
LOC: M INFU 10:35
PROVIDERS: ATTEND Internal Medicine
DX: M06.9 Rheumatoid arthritis, unspecified (principal); Z88.2 Allergy status to sulfonamides; Z88.4 Allergy status to anesthetic agent; Z88.5 Allergy status to narcotic agent; Z88.6 Allergy status to analgesic agent
CPT/HCPCS: 96413; Q5103

== ENCOUNTER → 2020-01-16 | Outpatient (CLI) | payer OTHER ==
[~2020-01-16] MED LIST changes: -CODCAP10 PO; +CODCAP6 PO
--- NOTE | 2020-01-18 04:20 | ECWPNPC ---
PATIENT NAME: IFRAH LINDA : 1955 GENDER: FEMALE VISIT DATE: 01/16/2020 DISCHARGE DATE: 01/16/20 1240 VISIT LOCKED DATE TIME: PHYSICIAN: TEAGAN CALVILLO RESOURCE: TEAGAN CALVILLO REASON FOR APPOINTMENT 1. [phone] 2 MONTH - PAT COMPLETED HISTORY OF PRESENT ILLNESS HISTORY OF PRESENT ILLNESS: PATIENT IS AGREEABLE TO TELEMED VISIT VIA ZOOM. THIS IS A WORK RELATED INJURY WITH DATE OF INJURY: FEBRUARY 1997. RATING PAIN VAS 4/10. PAIN IS AGGRAVATED WITH INCREASED ACTIVITY. OVER THE PAST 6 MONTHS SHE HAS BEEN EXPERIENCING SEVERE INCREASE IN PAIN AND RIGHT LEG RADICULAR SYMPTOMS. SHE HAS BEEN EVALUATED BY SURGEON AND IS WAITING FOR SURGERY ONCE COVID 19 RESTRICTIONS HAVE BEEN LIFTED. SHE WILL BE HAVING SURGERY IN [place]. FINDS GABAPENTIN 300 MG HELPFUL AT REDUCING PAIN, ESPECIALLY IN HER LEG. SHE IS TRYING TO REDUCE IT TO TWICE A DAY BUT SYMPTOMS RETURNED. ALSO TAKING SOMA 350 MG 3 TIMES A DAY. THE PATIENT STATES THIS MEDICATION IS VERY HELPFUL. SHE HAS TRIED TO WEAN OFF OF THIS AND HAS HAD A SEVERE INCREASE IN MID TO UPPER BACK PAIN AND SPASM. HAS TRIALED MULTIPLE DIFFERENT MUSCLE RELAXANTS AND PAIN MEDICATIONS OVER THE YEARS WITH EITHER NO IMPROVEMENT OR ADVERSE SIDE EFFECTS. SOMA HAS BEEN THE ONLY MEDICATION THAT SHE HAS FOUND HELPFUL AT REDUCING HER SHARP MUSCLE SPASM TYPE CHRONIC PAIN. PAIN THE PATIENT DESCRIBES THE PAIN... FALL RISK SCREENING: SCREENING :NO FALLS REPORTED IN THE LAST YEAR CURRENT MEDICATIONS TAKING MAGNESIUM 250 MG TABLET 1 TAB(S) ORALLY TWICE A DAY, NOTES: HOLDING CURRENTLY TAKING CALCIUM 600 + D 600-400 MG-UNIT TABLET 1 TABLET ORALLY TWICE A DAY TAKING MULTIVITAMINS OTC TABLET 1 TAB(S) ORALLY ONCE A DAY TAKING IBUPROFEN 200 MG TABLET 3 TABLETS ORALLY NEEDED 3X/DAY TAKING VITAMIN D 2000 UNIT TABLET 1 TAB(S) ORALLY ONCE A DAY TAKING LIDOCAINE 5 % PATCH 1 PATCH TO INTACT SKIN REMOVE AFTER 12 HOURS EXTERNALLY NEEDED, NOTES: ONLY NEEDED TAKING FISH OIL 1000 MG CAPSULE 1 CAPSULE ORALLY BID TAKING TAGAMET HB 200 MG TABLET 1 TABLET NEEDED ORALLY THE DAY BEFORE AND DAY AFTER REMICADE INJECTION TAKING REFRESH OPTIVE 0.5-0.9 % SOLUTION 1 DROP INTO AFFECTED EYE NEEDED OPHTHALMIC QID TAKING METAMUCIL 1 CAPFUL 1 SCOOP TWICE ADAY NEEDED TAKING INFLIXIMAB-DYYB 100 MG SOLUTION RECONSTITUTED DIRECTED INTRAVENOUS EVERY 8 WEEKS, NOTES: AKA: REMICADE, LAST DOSE 01/13/2020 TAKING ONDANSETRON 4 MG TABLET DISPERSIBLE 1 TABLET ON THE TONGUE AND ALLOW TO DISSOLVE ORALLY EVERY 8 HRS PRN TAKING METHOTREXATE 2.5 MG TABLET 3 TABS ORALLY ONCE A WEEK TAKING FOLIC ACID 1 MG TABLET 1 TABLET ORALLY ONCE A DAY TAKING SOMA 350 MG TABLET 1 TABLET ORALLY Q8H TID MDD3 TAKING GABAPENTIN 300 MG CAPSULE 1 CAPSULE ORALLY THREE TIMES DAILY NOT-TAKING GABAPENTIN 100 MG CAPSULE 1 CAPSULE ORALLY THREE TIMES DAILY, NOTES: 08/10/19 0600 NOT-TAKING MECLIZINE HCL 25 MG TABLET 1 TAB ORALLY THREE TIMES DAILY NEEDED, NOTES: RARELY MEDICATION LIST REVIEWED AND RECONCILED WITH THE PATIENT PAST MEDICAL HISTORY RHEUMATOID ARTHRITIS PSORIATIC ARTHRITIS PSORIASIS CHRONIC PAIN ALLERGIES GOLD SHOTS: ITCHING - ALLERGY OTC CREAMS, LOTIONS AND DETERGENTS: RASH, ITCHING - ALLERGY ASPIRIN: HIVES - ALLERGY LACTOSE: TERRIBLE GAS - ALLERGY PLAQUENIL: EXTREME ITCHING, BLISTERS - ALLERGY TRAMADOL: CONSTIPATED, NAUSEA, EXTREMELY DRUGGED - ALLERGY LODINE: ITCHING - ALLERGY SULFA (FOR ALLERGY USE ONLY): RASH - ALLERGY SURGICAL HISTORY DISKECTOMY-BACK SURGERY 1997 CERVICAL CERCLAGE DURING COLONOSCOPY, DR. OVALLE. 07/2013 FAMILY HISTORY FATHER: 86 YRS, COLORECTAL CANCER @ 83, PROSTATE CA IN HIS LATE 70'S MOTHER: ALIVE 89 YRS DAUGHTER(S): PSORIATIC ARTHRITIS PATERNAL GRAND MOTHER: BREAST CANCER IN HER 80'S 3DAUGHTER(S) - HEALTHY. SOCIAL HISTORY GENERAL: TOBACCO USE ARE YOU A:NONSMOKER LATEX QUESTIONNAIRE LATEX ALLERGY : HAVE YOU EVER DEVELOPED ANY TYPE OF REACTION AFTER HANDLING LATEX PRODUCTS SUCH RUBBER GLOVES, CONDOMS, DIAPHRAGMS, BALLOONS, SOCKS, OR UNDERWEAR?NO LATEX ALLERGY : HAVE YOU EVER DEVELOPED ANY TYPE OF REACTION DURING OR AFTER DENTAL APPOINTMENT, VAGINAL/RECTAL EXAMINATION, SURGICAL PROCEDURE, OR ANY OTHER EXPOSURE?NO LATEX RISK : HAVE YOU EVER HAD ANY DIFFICULTY BREATHING OR HIVES AFTER EATING OR HANDLING ANY FRUITS, OR VEGETABLES; SUCH KIWI, BANANAS, STONE FRUITS, OR CHESTNUTSNO LATEX RISK : DO YOU HAVE A PREVIOUS PERSONAL HISTORY OF MORE THAN NINE SURGERIES, SPINA BIFIDA, OR REPEATED CATHERIZATIONS? NO LATEX RISK : ARE YOU FREQUENTLY EXPOSED TO LATEX PRODUCTS IN YOUR OCCUPATION?NO DATE ASKED : 11/21/2019 BMI CARE GOAL FOLLOW-UP ABOVE NORMAL BMI FOLLOW-UPDIETARY NEEDS EDUCATION, WEIGHT MONITORING ALCOHOL SCREENING DID YOU HAVE A DRINK CONTAINING ALCOHOL IN THE PAST YEAR?NO POINTS0 INTERPRETATIONNEGATIVE RECREATIONAL DRUG USE DRUG USE?NO CAFFEINE CAFFEINE USE?NO SEXUAL HX HAD SEX IN THE LAST 12 MONTHS (VAGINAL, ORAL, OR ANAL)?YES WITHMEN ONLY USE PROTECTION?NO LMP:POST MENOPAUSE HAVE YOU EVER HAD AN STD?NO HIV / HEP-C SCREENING HIV TEST OFFERED TO PATIENT:YES DATE OFFERED:06/24/2019 TEST ACCEPTED:NO REASON:PATIENT DECLINED BROCHURE PROVIDED TO PATIENTNO LANGUAGE LANGUAGES SPOKEN:ARMENIAN EDUCATION LEVEL OF EDUCATION:NOT FINISHED COLLEGE LEARNING BARRIERS / SPECIAL NEEDS CHANGE FROM LAST VISIT?NO BARRIERS TO LEARNING?NO HEARING IMPAIRED?NO VISION IMPAIRED?YES COGNITIVELY IMPAIRED?NO :CORRECTIVE LENSES READINESS TO LEARN?YES LEARNING PREFERENCES?NO LEARNING CAPABILITIES PRESENT?YES EMOTIONAL BARRIERS?NO SPECIAL DEVICES?NO DOMESTIC VIOLENCE DO YOU FEEL SAFE IN YOUR ENVIRONMENT?YES 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 DIET: REGULAR. EXERCISE: WALKS IS LIMITED DUE TO BACK ISSUES. MARITAL STATUS: . OTHERS AT HOME: SPOUSE. NEW PATIENT PAIN DIARY TODAY'S VISITNOTES 01/16/2020 PATIENT DESCRIBES PAIN :ACHING, HAVE IT ALL THE TIME, TENDER, SORE, SHOOTING, OTHER TIGHTNESS, ELECTRIC FEELING FROM 0-10, WHAT LEVEL IS YOUR PAIN TODAY?4 PRECIPITATING FACTORS STANDING/SITTING TOO LONG, WALKING ALLEVIATING FACTORS GABAPENTIN, SOMA PAIN CLINIC PFS, CLERGY, PUBLIC HEALTH REFERRALS WAS THE PROVIDER NOTIFIED OF ANY PERTINENT INFO?YES HAS THE PATIENT BEEN EDUCATED REGARDING HIS/HER PLAN OF CARE?YES HAS THE PATIENT BEEN EDUCATED REGARDING PAIN, THE RISK FOR PAIN, THE IMPORTANCE OF EFFECTIVE PAIN MANAGEMENT, AND THE PAIN ASSESSMENT PROCESS?YES ADVANCE DIRECTIVE ADVANCE DIRECTIVE DISCUSSED WITH PATIENT:YES PT STATES THAT SHE HAS HCP MITESH LINDA SPOUSE [phone] HOSPITALIZATION/MAJOR DIAGNOSTIC PROCEDURE SURGERIES REVIEW OF SYSTEMS REVIEWED BY: PROVIDER: TEAGAN STEVE . CONSTITUTIONAL: ANY CHANGE IN YOUR MEDICAL CONDITION? NO . CHILLS NO . FEVER NO . INFECTION: DO YOU HAVE NEW INFECTIONS? NO . DO YOU HAVE HISTORY OF MRSA? NO . MUSCULOSKELETAL: ANY NEW PATTERNS OF PAIN OR NUMBNESS? NO . GASTROENTEROLOGY: ANY NEW CHANGE IN BOWEL CONTROL? NO . GENITOURINARY: ANY NEW CHANGE IN BLADDER CONTROL? NO . IS THERE A CHANCE YOU COULD BE ? NO . HEMATOLOGY/LYMPH: DO YOU TAKE ANY BLOOD THINNERS? (FOR EXAMPLE- COUMADIN, PLAVIX, AGGRENOX, PLATEL, PRADAXA, OR XARELTO) NO . WHEN WAS YOUR LAST DOSE? DATE: TIME: . NEUROLOGY: HAVE YOU FALLEN IN THE PAST 12 MONTHS? NO . ANY NEW EXTREMITY NUMBNESS OR WEAKNESS? NO . CARDIOLOGY: DO YOU HAVE A PACEMAKER OR DEFIBRILLATOR? NO . RESPIRATORY: HAVE YOU BEEN SICK IN THE PAST WEEK? NO . FEVER NO . FLU LIKE SYMPTOMS? NO . COUGH NO . INTEGUMENTARY: DO YOU HAVE ANY RASHES OR OPEN SORES? NO . ALLERGIC/IMMUNO: ARE YOU ALLERGIC TO IV DYE? NO . ANY NEW ALLERGIES? NO . PSYCHIATRIC: DO YOU HAVE THOUGHTS OF HURTING YOURSELF OR SOMEONE ELSE? NO . ARE YOU ABUSED, NEGLECTED, OR IN AN UNSAFE ENVIRONMENT? NO . ENDOCRINOLOGY: ARE YOU DIABETIC? NO . OTHER: DO YOU NEED ANY PRESCRIPTIONS? NO . IF YES, PLEASE LIST: ____ . ANY NEW PROBLEMS WITH YOUR MEDICATIONS? NO . WHEN DID YOU LAST EAT? ____ . WHEN DID YOU LAST DRINK? ____ . WHAT DID YOU LAST DRINK? ____ . NAME OF PERSON DRIVING YOU HOME? ____ . DO YOU HAVE ANY OTHER QUESTIONS OR CONCERNS YES, WANTS TO DISCUSS SOMA DUE TO W/C WANTING TO STOP IT - STATES SHE CANNOT GO WITHOUT THIS MEDICATION . EXAMINATION GENERAL EXAMINATION: GENERALNO ACUTE DISTRESS, WELL NOURISHED AND HYDRATED. PSYCHAPPROPRIATE MOOD AND AFFECT . FACE:UNREMARKABLE. 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 (PRIMARY) TREATMENT SPONDYLOSIS OF LUMBOSACRAL JOINT CONTINUE SOMA TABLET, 350 MG, 1 TABLET, ORALLY, Q8H TID MDD3 CONTINUE GABAPENTIN CAPSULE, 300 MG, 1 CAPSULE, ORALLY, THREE TIMES DAILY OTHERS NOTES: NO VITALS OBTAINED DUE TO VIRTUAL VISIT. PROCEDURES PN WORKMANS' COMP OPINION IN YOUR OPINION, WAS THE INCIDENT THAT THE PATIENT DESCRIBED THE COMPETENT MEDICAL CAUSE OF THIS INJURY/ILLNESS? YES ARE THE PATIENT'S COMPLAINTS CONSISTENT WITH HIS/HER HISTORY OF THE INJURY/ILLNESS? YES IS THE PATIENT'S HISTORY OF THE INJURY/ILLNESS CONSISTENT WITH YOUR OBJECTIVE FINDING? YES WHAT IS THE PERCENTAGE OF TEMPORARY IMPAIRMENT? MODERATE TO MARKED = 66.7% IS THE PATIENT WORKING? NO DOCTOR ON SITE: WAGNER HOPE MD DISPOSITION & COMMUNICATION FOLLOW UP 3 MONTHS-W/C IN CLINIC (REASON: LOW BACK PAIN) ELECTRONICALLY SIGNED BY EVI CHRISTENSEN ON 01/17/2020 AT 02:20 PM EDT DISCLAIMER : THIS IS A VISIT SUMMARY EXTRACTED FROM THE [employer] CHART. IT IS NOT A COPY OF THE [employer] PROGRESS NOTE. [place]
== END ==
LOC: M TMPAIN 13:45 → M PAIN 13:45
PROVIDERS: ATTEND Nurse Practitioner Family
DX: M47.817 Spondylosis without myelopathy or radiculopathy, lumbosacral region (principal); Z79.899 Other long term (current) drug therapy; Z88.2 Allergy status to sulfonamides; Z88.5 Allergy status to narcotic agent; Z88.6 Allergy status to analgesic agent; Z88.4 Allergy status to anesthetic agent; Z91.048 Other nonmedicinal substance allergy status; E73.9 Lactose intolerance, unspecified

== ENCOUNTER → 2020-02-13 | Outpatient (CLI) | payer OTHER ==
[~2020-02-13] MED LIST changes: +CODCAP10 PO; -CODCAP6 PO
[2020-02-13 16:24] LABS: BASO % 0.8 % (0.0-1.0); EOS # 0.2 10^3/uL (0.0-0.5); EOS % 4.1 % (0.0-3.0); HEMOGLOBIN 13.4 g/dl (12.0-15.5); LYMPH # 1.6 10^3/uL (1.5-5.0); LYMPH % 41.3 % (24.0-44.0); MEAN CORPUSCULAR HGB CONC 32.7 g/dl (32.0-36.5); MEAN CORPUSCULAR VOLUME 94.9 fl (80.0-96.0); MONO # 0.6 10^3/uL (0.0-0.8); MONO % 14.2 % (0.0-5.0); NEUTROPHILS # 1.5 10^3/uL (1.5-8.5); NEUTROPHILS % 39.6 % (36.0-66.0); PLATELET COUNT, AUTOMATED 235 10^3/uL (150-450); RED BLOOD COUNT 4.32 10^6/uL (4.00-5.40); WHITE BLOOD COUNT 3.9 10^3/uL (4.0-10.0)
[2020-02-13 16:49] LABS: ALBUMIN 3.6 GM/DL (3.2-5.2); ALT/SGPT 41 U/L (12-78); BILIRUBIN,TOTAL 0.4 MG/DL (0.2-1.0); BLOOD UREA NITROGEN 12 MG/DL (7-18); C REACTIVE PROTEIN QUANTITATIV < 0.30 MG/DL (0.00-0.30); CARBON DIOXIDE LEVEL 30 MEQ/L (21-32); CHLORIDE LEVEL 108 MEQ/L (98-107); CREATININE FOR GFR 0.66 MG/DL (0.55-1.30); GLOMERULAR FILTRATION RATE > 60.0 (>45); GLUCOSE, FASTING 74 MG/DL (70-100); POTASSIUM SERUM 4.9 MEQ/L (3.5-5.1); SODIUM LEVEL 141 MEQ/L (136-145); TOTAL PROTEIN 6.8 GM/DL (6.4-8.2)
[2020-02-13 18:49] LABS: ERYTHROCYTE SEDIMENTATION RATE 18 mm/hr (0-30)
== END ==
LOC: M WUC 11:12
PROVIDERS: ATTEND Internal Medicine
DX: M06.09 Rheumatoid arthritis without rheumatoid factor, multiple sites (principal)

== ENCOUNTER → 2020-03-06 | Outpatient (CLI) | payer OTHER ==
[2020-03-06 15:38] LABS: APPEARANCE, URINE CLEAR (CLEAR); BACTERIA, URINE AUTO NEGATIVE (NEGATIVE); BILIRUBIN, URINE AUTO NEGATIVE (NEGATIVE); BLOOD, URINE BLOOD NEGATIVE (NEGATIVE); COLOR, URINE YELLOW (YELLOW); GLUCOSE, URINE (UA) AUTO NEGATIVE (NEGATIVE); KETONE, URINE AUTO NEGATIVE (NEGATIVE); LEUKOCYTE ESTERASE, URINE AUTO NEGATIVE (NEGATIVE); NITRITE, URINE AUTO NEGATIVE (NEGATIVE); PROTEIN, URINE AUTO NEGATIVE (NEGATIVE); RBC, URINE AUTO 1 /HPF (0-3); SPECIFIC GRAVITY URINE AUTO 1.014 (1.002-1.035); SQUAMOUS EPITHELIAL CELL UR AU 0 /HPF (0-6); UROBILINOGEN, URINE AUTO 0.2 mg/dL (0.0-2.0); WBC, URINE AUTO 0 /HPF (0-3)
[2020-03-06 15:45] LABS: INR 1.06; PROTHROMBIN TIME 13.5 SECONDS (11.8-14.0)
[2020-03-06 15:46] LABS: PARTIAL THROMBOPLASTIN TIME 37.7 SECONDS (25.0-38.4)
== END ==
LOC: M WUC 11:12
PROVIDERS: ATTEND Nurse Practitioner Family
DX: Z01.818 Encounter for other preprocedural examination (principal)

== ENCOUNTER → 2020-04-17 | Outpatient (CLI) | payer OTHER | LOC: M PAIN 09:00 | PROVIDERS: ATTEND Nurse Practitioner Family | DX: M47.817 Spondylosis without myelopathy or radiculopathy, lumbosacral region (principal) ==

== ENCOUNTER 2020-05-04 10:31 | Outpatient (CLI) | payer OTHER ==
[~2020-05-04] VITALS: Ht 167.6 cm; Wt 79.9 kg
[2020-05-04 10:30] VITALS: BP 144/78
[~2020-05-04 10:31] MED LIST changes: +ACETAMINOPHEN 650MG PO PRIOR TO INFUSION PO ONE; +INFLIXIMAB BIOSIMILAR 400 MG in NS 210 ML IV ONE; +NS 1,000 ML IV SCH
[2020-05-04 11:53] VITALS: BP 114/60
[2020-05-04 12:45] VITALS: BP 123/69
== END 2020-05-04 12:55 | disposition home or self-care (01) ==
LOC: M INFU 10:31
PROVIDERS: ATTEND Internal Medicine
DX: M06.9 Rheumatoid arthritis, unspecified (principal)
CPT/HCPCS: 96413; Q5103

== ENCOUNTER → 2020-06-25 | Outpatient (REF) | payer OTHER ==
[~2020-06-25] MED LIST changes: -ACETAMINOPHEN 650MG PO PRIOR TO INFUSION PO ONE; -INFLIXIMAB BIOSIMILAR 400 MG in NS 210 ML IV ONE; -NS 1,000 ML IV SCH
== END ==
LOC: M SFHCWAGY 10:26
PROVIDERS: ATTEND Nurse Practitioner Women's Health
DX: Z12.4 Encounter for screening for malignant neoplasm of cervix (principal)

== ENCOUNTER → 2020-06-25 | Outpatient (CLI) | payer OTHER ==
[2020-06-25 10:38] LABS: HEMATOCRIT 43.1 % (36.0-47.0); HEMOGLOBIN 13.6 g/dl (12.0-15.5); MEAN CORPUSCULAR HEMOGLOBIN 30.1 pg (27.0-33.0); MEAN CORPUSCULAR HGB CONC 31.6 g/dl (32.0-36.5); MEAN CORPUSCULAR VOLUME 95.4 fl (80.0-96.0); PLATELET COUNT, AUTOMATED 241 10^3/uL (150-450); RED BLOOD COUNT 4.52 10^6/uL (4.00-5.40); WHITE BLOOD COUNT 4.9 10^3/uL (4.0-10.0)
[2020-06-25 11:18] LABS: ALBUMIN 3.7 GM/DL (3.2-5.2); ALT/SGPT 42 U/L (12-78); BILIRUBIN,TOTAL 0.3 MG/DL (0.2-1.0); BLOOD UREA NITROGEN 15 MG/DL (7-18); CALCIUM LEVEL 9.2 MG/DL (8.8-10.2); CARBON DIOXIDE LEVEL 32 MEQ/L (21-32); CHLORIDE LEVEL 104 MEQ/L (98-107); CREATININE FOR GFR 0.68 MG/DL (0.55-1.30); GLOMERULAR FILTRATION RATE > 60.0 (>45); GLUCOSE, FASTING 82 MG/DL (70-100); POTASSIUM SERUM 4.6 MEQ/L (3.5-5.1); SODIUM LEVEL 140 MEQ/L (136-145); TOTAL PROTEIN 7.3 GM/DL (6.4-8.2)
[2020-06-25 11:27] LABS: ERYTHROCYTE SEDIMENTATION RATE 16 mm/hr (0-30)
== END ==
LOC: M PLALAB 08:41
PROVIDERS: ATTEND Internal Medicine Rheumatology
DX: M06.9 Rheumatoid arthritis, unspecified (principal)

== ENCOUNTER → 2020-06-25 | Outpatient (CLI) | payer OTHER ==
--- NOTE | 2020-06-25 09:12 | REPMRS ---
Patient History The patient states she had a clinical breast exam in June 2020. Patient is postmenopausal. Family history of breast cancer at age 50 or over in paternal grandmother, colorectal cancer and prostate cancer at age 50 or over in father. Took estrogen for 3 years. Took progesterone for 3 years. Digital Woman Screen Mammo: June 25, 2020 - Exam #: [id number] Bilateral CC and MLO view(s) were taken. Technologist: Loni Fuller Technologist Prior study comparison: June 24, 2019, bilateral digital woman screen mammo performed at [facility]. June 21, 2018, bilateral digital woman screen mammo performed at [facility]. June 19, 2017, digital woman screen mammo performed at [facility]. FINDINGS: There are scattered fibroglandular densities. The Volpara volumetric breast density category is:B. There has been no change in the appearance of the mammogram from the prior studies. There is a mild amount of scattered fibroglandular density which is fairly symmetric. There is no interval development of dominant mass, architectural distortion, or grouped microcalcification suggestive of malignancy. 3-D tomosynthesis shows no additional findings. Assessment: BI-RADS/ACR category 1 mammogram. Negative Mammogram. Recommendation Routine screening mammogram of both breasts in 1 year (for women over age 40). This patient's Lifetime Breast Cancer Risk is estimated at 13.5 %. This mammogram was interpreted with the aid of an FDA-approved computer-aided dectection system. Electronically Signed By: Gal Huynh MD 06/25/20 0911
== END ==
LOC: M WHC 07:52
PROVIDERS: ATTEND Nurse Practitioner Women's Health
DX: Z12.31 Encounter for screening mammogram for malignant neoplasm of breast (principal); Z80.0 Family history of malignant neoplasm of digestive organs

== ENCOUNTER → 2020-06-26 | Outpatient (REF) | payer OTHER | LOC: M SFHCRHEU 09:32 | PROVIDERS: ATTEND Internal Medicine | DX: M06.09 Rheumatoid arthritis without rheumatoid factor, multiple sites (principal); Z79.899 Other long term (current) drug therapy ==

== ENCOUNTER 2020-06-29 10:37 | Outpatient (CLI) | payer OTHER ==
[~2020-06-29] VITALS: Ht 167.6 cm; Wt 80.0 kg
[2020-06-29 10:51] VITALS: BP 109/59
[2020-06-29] MEDS ORDERED: NS 1,000 ML IV SCH (11:00)
[2020-06-29] MEDS ORDERED: INFLIXIMAB BIOSIMILAR 400 MG in NS 210 ML IV ONE (11:00)
[2020-06-29] MEDS ORDERED: ACETAMINOPHEN 650MG PO PRIOR TO INFUSION PO ONE (11:00)
[2020-06-29 11:30] VITALS: BP 108/57
[2020-06-29 12:11] VITALS: BP 113/56
== END 2020-06-29 12:20 | disposition home or self-care (01) ==
LOC: M INFU 10:37
PROVIDERS: ATTEND Internal Medicine
DX: M06.9 Rheumatoid arthritis, unspecified (principal)
CPT/HCPCS: 96413; Q5103

== ENCOUNTER → 2020-07-27 | Outpatient (CLI) | payer OTHER ==
--- NOTE | 2020-08-01 06:22 | ECWPNPC ---
PATIENT NAME: IFRAH LINDA : 1955 GENDER: FEMALE VISIT DATE: 07/27/2020 DISCHARGE DATE: 07/27/20936 VISIT LOCKED DATE TIME: PHYSICIAN: TEAGAN CALVILLO RESOURCE: TEAGAN CALVILLO REASON FOR APPOINTMENT 1. W/C LOW BACK HISTORY OF PRESENT ILLNESS DEPRESSION SCREENING: PHQ-2 (2015 EDITION) LITTLE INTEREST OR PLEASURE IN DOING THINGS?NOT AT ALL FEELING DOWN, DEPRESSED, OR HOPELESS?NOT AT ALL TOTAL SCORE0 GENERAL: HERE TO FOLLOW-UP ON CHRONIC LOW BACK PAIN. THIS IS A WORK RELATED INJURY. HAD LUMBAR SURGERY A FEW MONTHS AGO. DOING QUITE WELL. WE ARE IN THE PROCESS OF REDUCING SOMA 350 MG AND SHE IS TOLERATING THIS WELL. USING GABAPENTIN THROUGH PRIVATE INSURANCE. DISCUSSED MEDICATION. PATIENT IS GOING TO TRY TO WEAN DOWN TO ONE TABLET A DAY OF SOMA OVER THE COURSE OF THE NEXT 3 MONTHS. SHE HAS WEANED DOWN GABAPENTIN TO 300 MG TWICE A DAY. OVERALL FEELING WELL. STAYING ACTIVE.-. FALL RISK SCREENING: SCREENING :NO FALLS REPORTED IN THE LAST YEAR PAIN SCREENING: PATIENT HAS A COMPLAINT OF ACUTE OR CHRONIC PAIN :YES INTENSITY OF PAIN (SCALE OF 1 TO 10):0 NURSING NOTE: -. PAIN CENTER INTAKE QUESTIONS: DO YOU HAVE A HISTORY OF MRSA? :NO DO YOU TAKE A BLOOD THINNERS? :NO DO YOU HAVE ANY BLEEDING DISORDERS? :NO ANY NEW NUMBNESS OR WEAKNESS IN YOUR LEGS OR ARMS? :NO ANY PACEMAKER,DEFIBRILLATOR, OR DORSAL COLUMN STIMULATOR? :NO DO YOU HAVE ANY RASHES OR OPEN SORES? :NO ARE YOU ALLERGIC TO IV DYE? :NO ARE YOU DIABETIC? :NO ANY NEW PROBLEMS WITH YOUR MEDICATIONS? :NO HAVE YOU RECEIVED A VACCINE IN THE PAST 30 DAYS? :YES IF SO WHAT VACCINE AND WHEN? FLU ACCINE EARLY JUNE DO YOU PLAN TO RECEIVE A VACCINE IN THE NEXT 21 DAYS? :NO DO YOU NEED ANY PRESCRIPTION? :NO DO YOU TAKE ANY IMMUNOSUPPRESSIVE MEDICATIONS? :YES METHOTREXATE AND INFLECTRA INFUSIONS Q 8 WEEKS FOR RA AND PSORIATIC ARTHRITIS IS THERE A CHANCE YOU COULD BE ? :NO ARE YOU BREAST FEEDING? :NO CURRENT MEDICATIONS TAKING MAGNESIUM 250 MG TABLET 1 TAB(S) ORALLY ONCE A DAY TAKING CALCIUM 600 + D 600-400 MG-UNIT TABLET 1 TABLET ORALLY TWICE A DAY TAKING MULTIVITAMINS OTC TABLET 1 TAB(S) ORALLY ONCE A DAY TAKING IBUPROFEN 200 MG TABLET 3 TABLETS ORALLY NEEDED 3X/DAY TAKING LIDOCAINE 5 % PATCH 1 PATCH TO INTACT SKIN REMOVE AFTER 12 HOURS EXTERNALLY NEEDED, NOTES: ONLY NEEDED TAKING FISH OIL 1000 MG CAPSULE 1 CAPSULE ORALLY BID TAKING METAMUCIL 1 CAPFUL 1 SCOOP TWICE ADAY NEEDED TAKING GABAPENTIN 300 MG CAPSULE 1 CAPSULE ORALLY BID TAKING SOMA 350 MG TABLET 1 TABLET ORALLY Q8H BID MDD2 TAKING ZYRTEC ALLERGY 10 MG TABLET 1 TABLET ORALLY ONCE A DAY TAKING METHOTREXATE 2.5 MG TABLET 6 TABS ORALLY ONCE A WEEK TAKING FOLIC ACID 1 MG TABLET 1 TABLET ORALLY ONCE A DAY TAKING INFLECTRA 100 MG SOLUTION RECONSTITUTED DIRECTED INTRAVENOUS Q 8 WEEKS NOT-TAKING VITAMIN D 2000 UNIT TABLET 1 TAB(S) ORALLY ONCE A DAY NOT-TAKING TAGAMET HB 200 MG TABLET 1 TABLET NEEDED ORALLY THE DAY BEFORE AND DAY AFTER REMICADE INJECTION NOT-TAKING REFRESH OPTIVE 0.5-0.9 % SOLUTION 1 DROP INTO AFFECTED EYE NEEDED OPHTHALMIC QID NOT-TAKING INFLIXIMAB-DYYB 100 MG SOLUTION RECONSTITUTED DIRECTED INTRAVENOUS EVERY 8 WEEKS, NOTES: AKA: REMICADE, LAST DOSE 01/13/2020 NOT-TAKING ONDANSETRON 4 MG TABLET DISPERSIBLE 1 TABLET ON THE TONGUE AND ALLOW TO DISSOLVE ORALLY EVERY 8 HRS PRN NOT-TAKING GABAPENTIN 100 MG CAPSULE 1 CAPSULE ORALLY THREE TIMES DAILY, NOTES: 08/10/19 0600 NOT-TAKING MECLIZINE HCL 25 MG TABLET 1 TAB ORALLY THREE TIMES DAILY NEEDED, NOTES: RARELY PAST MEDICAL HISTORY RHEUMATOID ARTHRITIS PSORIATIC ARTHRITIS PSORIASIS CHRONIC PAIN ALLERGIES GOLD SHOTS: ITCHING - ALLERGY OTC CREAMS, LOTIONS AND DETERGENTS: RASH, ITCHING - ALLERGY ASPIRIN: HIVES - ALLERGY LACTOSE: TERRIBLE GAS - ALLERGY PLAQUENIL: EXTREME ITCHING, BLISTERS - ALLERGY TRAMADOL: CONSTIPATED, NAUSEA, EXTREMELY DRUGGED - ALLERGY LODINE: ITCHING - ALLERGY SULFA (FOR ALLERGY USE ONLY): RASH - ALLERGY SURGICAL HISTORY DISKECTOMY-BACK SURGERY 1997 CERVICAL CERCLAGE DURING COLONOSCOPY, DR. OVALLE. 07/2013 LUMBAR LAMINECTOMY 03/16/2020 FAMILY HISTORY FATHER: 86 YRS, COLORECTAL CANCER @ 83, PROSTATE CA IN HIS LATE 70'S MOTHER: ALIVE 89 YRS DAUGHTER(S): PSORIATIC ARTHRITIS PATERNAL GRAND MOTHER: BREAST CANCER IN HER 80'S 3DAUGHTER(S) - HEALTHY. SOCIAL HISTORY GENERAL: TOBACCO USE ARE YOU A:NONSMOKER LATEX QUESTIONNAIRE LATEX ALLERGY : HAVE YOU EVER DEVELOPED ANY TYPE OF REACTION AFTER HANDLING LATEX PRODUCTS SUCH RUBBER GLOVES, CONDOMS, DIAPHRAGMS, BALLOONS, SOCKS, OR UNDERWEAR?NO LATEX ALLERGY : HAVE YOU EVER DEVELOPED ANY TYPE OF REACTION DURING OR AFTER DENTAL APPOINTMENT, VAGINAL/RECTAL EXAMINATION, SURGICAL PROCEDURE, OR ANY OTHER EXPOSURE?NO DATE ASKED : 06/26/2020 LATEX RISK : HAVE YOU EVER HAD ANY DIFFICULTY BREATHING OR HIVES AFTER EATING OR HANDLING ANY FRUITS, OR VEGETABLES; SUCH KIWI, BANANAS, STONE FRUITS, OR CHESTNUTSNO LATEX RISK : DO YOU HAVE A PREVIOUS PERSONAL HISTORY OF MORE THAN NINE SURGERIES, SPINA BIFIDA, OR REPEATED CATHERIZATIONS? NO LATEX RISK : ARE YOU FREQUENTLY EXPOSED TO LATEX PRODUCTS IN YOUR OCCUPATION?NO BMI CARE GOAL FOLLOW-UP ABOVE NORMAL BMI FOLLOW-UPDIETARY NEEDS EDUCATION, WEIGHT MONITORING ALCOHOL SCREENING DID YOU HAVE A DRINK CONTAINING ALCOHOL IN THE PAST YEAR?NO POINTS0 INTERPRETATIONNEGATIVE RECREATIONAL DRUG USE DRUG USE?NO CAFFEINE CAFFEINE USE?YES HOW OFTEN AND HOW MUCH? COFFEE OCCASIONALLY SEXUAL HX HAD SEX IN THE LAST 12 MONTHS (VAGINAL, ORAL, OR ANAL)?YES WITHMEN ONLY USE PROTECTION?NO LMP:POST MENOPAUSE HAVE YOU EVER HAD AN STD?NO HIV / HEP-C SCREENING HIV TEST OFFERED TO PATIENT:YES DATE OFFERED:06/24/2019 TEST ACCEPTED:NO REASON:PATIENT DECLINED BROCHURE PROVIDED TO PATIENTNO LANGUAGE LANGUAGES SPOKEN:BOLIVIAN EDUCATION LEVEL OF EDUCATION:NOT FINISHED COLLEGE LEARNING BARRIERS / SPECIAL NEEDS CHANGE FROM LAST VISIT?NO BARRIERS TO LEARNING?NO HEARING IMPAIRED?NO VISION IMPAIRED?YES COGNITIVELY IMPAIRED?NO :CORRECTIVE LENSES READINESS TO LEARN?YES LEARNING PREFERENCES?NO LEARNING CAPABILITIES PRESENT?YES EMOTIONAL BARRIERS?NO SPECIAL DEVICES?NO DOMESTIC VIOLENCE DO YOU FEEL SAFE IN YOUR ENVIRONMENT?YES 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 DIET: REGULAR. EXERCISE: WALKS IS LIMITED DUE TO BACK ISSUES. MARITAL STATUS: . OTHERS AT HOME: SPOUSE. TODAY'S VISITNOTES 01/16/2020 PATIENT DESCRIBES PAIN :ACHING, HAVE IT ALL THE TIME, TENDER, SORE, SHOOTING, OTHER TIGHTNESS, ELECTRIC FEELING FROM 0-10, WHAT LEVEL IS YOUR PAIN TODAY?4 PRECIPITATING FACTORS STANDING/SITTING TOO LONG, WALKING ALLEVIATING FACTORS GABAPENTIN, SOMA PAIN CLINIC PFS, CLERGY, PUBLIC HEALTH REFERRALS WAS THE PROVIDER NOTIFIED OF ANY PERTINENT INFO?YES HAS THE PATIENT BEEN EDUCATED REGARDING HIS/HER PLAN OF CARE?YES HAS THE PATIENT BEEN EDUCATED REGARDING PAIN, THE RISK FOR PAIN, THE IMPORTANCE OF EFFECTIVE PAIN MANAGEMENT, AND THE PAIN ASSESSMENT PROCESS?YES ADVANCE DIRECTIVE ADVANCE DIRECTIVE DISCUSSED WITH PATIENT:YES PT STATES THAT SHE HAS HCP MITESH LINDA SPOUSE [phone] HOSPITALIZATION/MAJOR DIAGNOSTIC PROCEDURE SURGERIES REVIEW OF SYSTEMS CONSTITUTIONAL: ANY RECENT FEVER NO . CHILLS NO . WEIGHT CHANGE OF UNKNOWN REASONS NO . GASTROENTEROLOGY: NEW UNEXPLAINABLE CHANGES IN BOWEL CONTROL NO . CONSTIPATION NO . GENITOURINARY: ANY NEW CHANGE IN BLADDER CONTROL? NO . NEUROLOGY: NEW ONSET DIZZINESS OR NEUROLOGICAL CHANGES NOT MENTIONED NO . NEW NUMBNESS OR PAIN PATTERNS NOT MENTIONED AND PERTINENT TO TODAY'S VISIT NO . CARDIOLOGY: NEW CHEST PRESSURE NO . NEW CHEST PAIN NO . RESPIRATORY: UNEXPLAINABLE COUGH NO . NEW SHORTNESS OF BREATH NO . VITAL SIGNS WT 179 LBS, HT 65.25 IN, BMI 29.56 INDEX, BP 144/67 MM HG, HR 74 /MIN, RR 18 /MIN, TEMP 97.0 F, OXYGEN SAT % 100, SAFE IN ENV? (Y/N) Y, REVIEWED BY: EM. EXAMINATION GENERAL EXAMINATION: GENERALNO ACUTE DISTRESS, WELL NOURISHED AND HYDRATED. PSYCHAPPROPRIATE MOOD AND AFFECT . LUNGS:CLEAR TO AUSCULTATION BILATERALLY, NO WHEEZES, RHONCHI, RALES. HEART:NO MURMURS, REGULAR RATE AND RHYTHM. MUSCULOSKELETAL:NORMAL RANGE OF MOTION/MST 5/5 LOWER EXTREMITIES. LUMBAR:WELL-HEALED SURGICAL SCAR L/S AXIS. NONTENDER WITH PALPATION. . NEUROLOGIC EXAM:NORMAL SENSATION TO LIGHT TOUCH UPPER AND LOWER EXTREMITIES . 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 (PRIMARY) TREATMENT SPONDYLOSIS OF LUMBOSACRAL JOINT STOP SOMA TABLET, 350 MG, 1 TABLET, ORALLY, Q8H BID MDD2 STOP GABAPENTIN CAPSULE, 300 MG, 1 CAPSULE, ORALLY, BID START SOMA TABLET, 350 MG, 1/2 TO 1 TAB, ORALLY, BID MDD2, 30 DAYS, 60, REFILLS 2 START GABAPENTIN CAPSULE, 300 MG, 1 CAPSULE, ORALLY, BID, 30 DAY(S), 60 CAPSULE, REFILLS 2 NOTES: ISTOP REGISTRY REVIEWED AND DEMONSTRATES COMPLLIANCE. PROCEDURES PN WORKMANS' COMP OPINION IN YOUR OPINION, WAS THE INCIDENT THAT THE PATIENT DESCRIBED THE COMPETENT MEDICAL CAUSE OF THIS INJURY/ILLNESS? YES ARE THE PATIENT'S COMPLAINTS CONSISTENT WITH HIS/HER HISTORY OF THE INJURY/ILLNESS? YES IS THE PATIENT'S HISTORY OF THE INJURY/ILLNESS CONSISTENT WITH YOUR OBJECTIVE FINDING? YES WHAT IS THE PERCENTAGE OF TEMPORARY IMPAIRMENT? MODERATE TO MARKED = 66.7% IS THE PATIENT WORKING? NO DOCTOR ON SITE: [facility] MD PROCEDURE CODES FA211 ESTABILISHED PATIENT [facility] CHARGE DISPOSITION & COMMUNICATION FOLLOW UP 3 MONTHS (REASON: WORKMEN'S COMP/LOW BACK PAIN/MEDICATION MANAGEMENT) ELECTRONICALLY SIGNED BY EVI CHRISTENSEN ON 07/31/2020 AT 01:26 PM EST DISCLAIMER : THIS IS A VISIT SUMMARY EXTRACTED FROM THE [employer] CHART. IT IS NOT A COPY OF THE [employer] PROGRESS NOTE. [place]
== END ==
LOC: M PAIN 09:15
PROVIDERS: ATTEND Nurse Practitioner Family
DX: M47.817 Spondylosis without myelopathy or radiculopathy, lumbosacral region (principal); G89.29 Other chronic pain; Z88.2 Allergy status to sulfonamides; Z88.6 Allergy status to analgesic agent; Z88.7 Allergy status to serum and vaccine; Z88.8 Allergy status to other drugs, medicaments and biological substances; Z91.011 Allergy to milk products; Z91.09 Other allergy status, other than to drugs and biological substances; Z79.899 Other long term (current) drug therapy

== ENCOUNTER 2020-08-24 10:50 | Outpatient (CLI) | payer OTHER ==
[~2020-08-24] VITALS: Ht 167.6 cm; Wt 80.0 kg
[2020-08-24 10:55] VITALS: BP 140/74
[2020-08-24] MEDS ORDERED: INFLIXIMAB BIOSIMILAR 400 MG in NS 210 ML IV ONE (11:00)
[2020-08-24] MEDS ORDERED: NS 1,000 ML IV SCH (11:00)
[2020-08-24] MEDS ORDERED: ACETAMINOPHEN 650MG PO PRIOR TO INFUSION PO ONE (11:00)
[2020-08-24 11:37] VITALS: BP 122/65
[2020-08-24 12:30] VITALS: BP 119/67
== END 2020-08-24 12:40 | disposition home or self-care (01) ==
LOC: M INFU 10:50
PROVIDERS: ATTEND Internal Medicine
DX: M06.9 Rheumatoid arthritis, unspecified (principal); Z88.2 Allergy status to sulfonamides; Z88.6 Allergy status to analgesic agent; Z88.8 Allergy status to other drugs, medicaments and biological substances
CPT/HCPCS: 96365; Q5103

== ENCOUNTER 2020-10-19 10:44 | Outpatient (CLI) | payer OTHER ==
[~2020-10-19] VITALS: Ht 167.6 cm; Wt 81.2 kg
[~2020-10-19 10:44] MED LIST changes: +ALBUTEROL SULFATE 2.5 MG/0.5 ML INH NEB SOLN INH PRN; -CODCAP10 PO; +CODCAP6 PO; +EPINEPHrine INJ 1 MG/ML 1ML AMP IM PRN; +diphenhydrAMINE 50MG/ML VIAL (J1200) IV PRN; +methylPREDNISolone 125MG 2ML VIAL IV PRN
[2020-10-19 11:00] VITALS: BP 119/59
[2020-10-19] MEDS ORDERED: INFLIXIMAB BIOSIMILAR 400 MG in NS 210 ML IV ONE (11:00)
[2020-10-19] MEDS ORDERED: NS 1,000 ML IV SCH (11:00)
[2020-10-19 11:50] VITALS: BP 108/58
[2020-10-19 12:40] VITALS: BP 124/67
== END 2020-10-19 12:45 | disposition home or self-care (01) ==
LOC: M INFU 10:44
PROVIDERS: ATTEND Internal Medicine
DX: M06.9 Rheumatoid arthritis, unspecified (principal); Z88.2 Allergy status to sulfonamides; Z88.8 Allergy status to other drugs, medicaments and biological substances
CPT/HCPCS: 96365; Q5103

== ENCOUNTER → 2020-10-26 | Outpatient (CLI) | payer OTHER ==
[~2020-10-26] MED LIST changes: -ALBUTEROL SULFATE 2.5 MG/0.5 ML INH NEB SOLN INH PRN; -EPINEPHrine INJ 1 MG/ML 1ML AMP IM PRN; -diphenhydrAMINE 50MG/ML VIAL (J1200) IV PRN; -methylPREDNISolone 125MG 2ML VIAL IV PRN
[2020-10-26 10:29] LABS: BASO # 0.1 10^3/uL (0.0-0.2); BASO % 1.1 % (0.0-1.0); EOS # 0.2 10^3/uL (0.0-0.5); EOS % 3.6 % (0.0-3.0); HEMATOCRIT 45.1 % (36.0-47.0); HEMOGLOBIN 14.4 g/dl (12.0-15.5); LYMPH # 1.7 10^3/uL (1.5-5.0); LYMPH % 37.2 % (24.0-44.0); MEAN CORPUSCULAR HEMOGLOBIN 29.8 pg (27.0-33.0); MEAN CORPUSCULAR HGB CONC 31.9 g/dl (32.0-36.5); MEAN CORPUSCULAR VOLUME 93.4 fl (80.0-96.0); MONO # 0.6 10^3/uL (0.0-0.8); MONO % 12.9 % (0.0-5.0); NEUTROPHILS % 44.8 % (36.0-66.0); PLATELET COUNT, AUTOMATED 251 10^3/uL (150-450); RED BLOOD COUNT 4.83 10^6/uL (4.00-5.40); WHITE BLOOD COUNT 4.5 10^3/uL (4.0-10.0)
[2020-10-26 10:53] LABS: ALBUMIN 3.9 GM/DL (3.2-5.2); ALT/SGPT 48 U/L (12-78); BILIRUBIN,TOTAL 0.4 MG/DL (0.2-1.0); BLOOD UREA NITROGEN 14 MG/DL (7-18); CALCIUM LEVEL 9.5 MG/DL (8.8-10.2); CARBON DIOXIDE LEVEL 30 MEQ/L (21-32); CHLORIDE LEVEL 106 MEQ/L (98-107); GLOMERULAR FILTRATION RATE > 60.0 (>45); GLUCOSE, FASTING 95 MG/DL (70-100); POTASSIUM SERUM 4.8 MEQ/L (3.5-5.1); SODIUM LEVEL 142 MEQ/L (136-145); TOTAL PROTEIN 7.6 GM/DL (6.4-8.2)
[2020-10-26 11:01] LABS: ERYTHROCYTE SEDIMENTATION RATE 13 mm/hr (0-30)
== END ==
LOC: M LAB 09:43
PROVIDERS: ATTEND Internal Medicine
DX: M06.09 Rheumatoid arthritis without rheumatoid factor, multiple sites (principal)

== ENCOUNTER → 2020-10-26 | Outpatient (CLI) | payer OTHER ==
[2020-10-26 10:53] LABS: ALBUMIN 3.8 GM/DL (3.2-5.2); ALT/SGPT 45 U/L (12-78); BILIRUBIN,TOTAL 0.4 MG/DL (0.2-1.0); BLOOD UREA NITROGEN 14 MG/DL (7-18); CALCIUM LEVEL 9.5 MG/DL (8.8-10.2); CARBON DIOXIDE LEVEL 31 MEQ/L (21-32); CHLORIDE LEVEL 105 MEQ/L (98-107); CHOLESTEROL LEVEL 281 MG/DL (<200); CHOLESTEROL RISK RATIO 3.385 (<5); CREATININE FOR GFR 0.77 MG/DL (0.55-1.30); GLOMERULAR FILTRATION RATE > 60.0 (>45); GLUCOSE, FASTING 93 MG/DL (70-100); HDL CHOLESTEROL 83 MG/DL (>40); LDL CHOLESTEROL 178 MG/DL (<100); NON-HDL-C 198 MG/DL; POTASSIUM SERUM 4.8 MEQ/L (3.5-5.1); SODIUM LEVEL 142 MEQ/L (136-145); TOTAL PROTEIN 7.5 GM/DL (6.4-8.2); TRIGLYCERIDES LEVEL 102 MG/DL (<150)
== END ==
LOC: M LAB 09:36
PROVIDERS: ATTEND Nurse Practitioner Family
DX: Z00.00 Encounter for general adult medical examination without abnormal findings (principal)

== ENCOUNTER 2020-12-28 09:35 | Outpatient (CLI) | payer OTHER ==
[~2020-12-28] VITALS: Ht 167.6 cm; Wt 81.2 kg
[~2020-12-28 09:35] MED LIST changes: +ALBUTEROL SULFATE 2.5 MG/0.5 ML INH NEB SOLN INH PRN; +EPINEPHrine INJ 1 MG/ML 1ML AMP IM PRN; +diphenhydrAMINE 50MG/ML VIAL (J1200) IV PRN; +methylPREDNISolone 125MG 2ML VIAL IV PRN
[2020-12-28 09:40] VITALS: BP 137/64
[2020-12-28] MEDS ORDERED: INFLIXIMAB BIOSIMILAR 400 MG in NS 210 ML IV ONE (10:00)
[2020-12-28 10:11] VITALS: BP 137/64
[2020-12-28 10:45] VITALS: BP 110/69
[2020-12-28 11:40] VITALS: BP 119/72
== END 2020-12-28 11:40 | disposition home or self-care (01) ==
LOC: M INFU 09:35
PROVIDERS: ATTEND Internal Medicine
DX: M06.9 Rheumatoid arthritis, unspecified (principal); Z88.2 Allergy status to sulfonamides; Z88.6 Allergy status to analgesic agent
CPT/HCPCS: 96365; Q5103

== ENCOUNTER 2021-02-22 09:50 | Outpatient (CLI) | payer OTHER ==
[~2021-02-22] VITALS: Ht 158.1 cm; Wt 81.2 kg
[2021-02-22] MEDS ORDERED: INFLIXIMAB BIOSIMILAR 400 MG in NS 210 ML IV ONE (10:00)
[2021-02-22 10:30] VITALS: BP 118/72
[2021-02-22 10:45] VITALS: BP 118/65
[2021-02-22 11:35] VITALS: BP 128/60
== END 2021-02-22 11:45 | disposition home or self-care (01) ==
LOC: M INFU 09:50
PROVIDERS: ATTEND Internal Medicine
DX: M06.9 Rheumatoid arthritis, unspecified (principal); Z88.2 Allergy status to sulfonamides; Z88.6 Allergy status to analgesic agent; Z88.8 Allergy status to other drugs, medicaments and biological substances
CPT/HCPCS: 96365; Q5103

== ENCOUNTER → 2021-02-27 | Outpatient (CLI) | payer OTHER ==
[~2021-02-27] MED LIST changes: -ALBUTEROL SULFATE 2.5 MG/0.5 ML INH NEB SOLN INH PRN; -EPINEPHrine INJ 1 MG/ML 1ML AMP IM PRN; -diphenhydrAMINE 50MG/ML VIAL (J1200) IV PRN; -methylPREDNISolone 125MG 2ML VIAL IV PRN
[2021-02-27 11:39] LABS: BASO % 0.8 % (0.0-1.0); EOS # 0.2 10^3/uL (0.0-0.5); EOS % 4.5 % (0.0-3.0); HEMOGLOBIN 14.4 g/dl (12.0-15.5); LYMPH # 1.9 10^3/uL (1.5-5.0); LYMPH % 36.5 % (24.0-44.0); MEAN CORPUSCULAR HEMOGLOBIN 29.6 pg (27.0-33.0); MEAN CORPUSCULAR VOLUME 92.6 fl (80.0-96.0); MONO # 0.5 10^3/uL (0.0-0.8); MONO % 8.7 % (2.0-8.0); NEUTROPHILS # 2.6 10^3/uL (1.5-8.5); NEUTROPHILS % 49.1 % (36.0-66.0); PLATELET COUNT, AUTOMATED 235 10^3/uL (150-450); RED BLOOD COUNT 4.86 10^6/uL (4.00-5.40); WHITE BLOOD COUNT 5.3 10^3/uL (4.0-10.0)
[2021-02-27 12:06] LABS: ERYTHROCYTE SEDIMENTATION RATE 12 mm/hr (0-30)
[2021-02-27 12:07] LABS: ALBUMIN 3.9 GM/DL (3.2-5.2); ALT/SGPT 48 U/L (12-78); BILIRUBIN,TOTAL 0.3 MG/DL (0.2-1.0); BLOOD UREA NITROGEN 16 MG/DL (7-18); CALCIUM LEVEL 9.9 MG/DL (8.8-10.2); CARBON DIOXIDE LEVEL 30 MEQ/L (21-32); CHLORIDE LEVEL 107 MEQ/L (98-107); CREATININE FOR GFR 0.65 MG/DL (0.55-1.30); GLOMERULAR FILTRATION RATE > 60.0 (>45); GLUCOSE, FASTING 95 MG/DL (70-100); POTASSIUM SERUM 5.1 MEQ/L (3.5-5.1); SODIUM LEVEL 140 MEQ/L (136-145); TOTAL PROTEIN 7.5 GM/DL (6.4-8.2)
== END ==
LOC: M LAB 10:46
PROVIDERS: ATTEND Internal Medicine
DX: M06.09 Rheumatoid arthritis without rheumatoid factor, multiple sites (principal)

== ENCOUNTER → 2021-03-08 | Outpatient (REF) | payer OTHER | LOC: M SFHCRHEU 12:25 | PROVIDERS: ATTEND Internal Medicine | DX: R74.8 Abnormal levels of other serum enzymes (principal) ==

== ENCOUNTER 2021-04-19 09:52 | Outpatient (CLI) | payer OTHER ==
[~2021-04-19] VITALS: Ht 157.5 cm; Wt 81.2 kg
[~2021-04-19 09:52] MED LIST changes: +ALBUTEROL SULFATE 2.5 MG/0.5 ML INH NEB SOLN INH PRN; +EPINEPHrine INJ 1 MG/ML 1ML AMP IM PRN; +diphenhydrAMINE 50MG/ML VIAL (J1200) IV PRN; +methylPREDNISolone 125MG 2ML VIAL IV PRN
[2021-04-19] MEDS ORDERED: INFLIXIMAB BIOSIMILAR 400 MG in NS 210 ML IV ONE (10:00)
[2021-04-19 10:06] VITALS: BP 124/64
[2021-04-19 10:08] VITALS: BP 124/64
[2021-04-19] MEDS ORDERED: FLON1SPR NARES (10:42)
[2021-04-19 11:00] VITALS: BP 109/67
[2021-04-19 12:00] VITALS: BP 117/63
== END 2021-04-19 12:00 | disposition home or self-care (01) ==
LOC: M INFU 09:52
PROVIDERS: ATTEND Internal Medicine
DX: M06.09 Rheumatoid arthritis without rheumatoid factor, multiple sites (principal); Z88.2 Allergy status to sulfonamides; Z88.6 Allergy status to analgesic agent; Z88.8 Allergy status to other drugs, medicaments and biological substances
CPT/HCPCS: 96365; Q5103

== ENCOUNTER → 2021-06-10 | Outpatient (REF) | payer OTHER ==
[~2021-06-10] MED LIST changes: -ALBUTEROL SULFATE 2.5 MG/0.5 ML INH NEB SOLN INH PRN; -EPINEPHrine INJ 1 MG/ML 1ML AMP IM PRN; +FLON1SPR NARES; -diphenhydrAMINE 50MG/ML VIAL (J1200) IV PRN; -methylPREDNISolone 125MG 2ML VIAL IV PRN
[2021-06-10 17:30] LABS: BASO % 0.9 % (0.0-1.0); EOS # 0.2 10^3/uL (0.0-0.5); EOS % 3.9 % (0.0-3.0); HEMATOCRIT 44.3 % (36.0-47.0); HEMOGLOBIN 14.3 g/dl (12.0-15.5); LYMPH # 1.8 10^3/uL (1.5-5.0); LYMPH % 39.7 % (24.0-44.0); MEAN CORPUSCULAR HEMOGLOBIN 30.6 pg (27.0-33.0); MEAN CORPUSCULAR HGB CONC 32.3 g/dl (32.0-36.5); MEAN CORPUSCULAR VOLUME 94.7 fl (80.0-96.0); MONO # 0.7 10^3/uL (0.0-0.8); MONO % 14.2 % (2.0-8.0); NEUTROPHILS # 1.9 10^3/uL (1.5-8.5); NEUTROPHILS % 40.9 % (36.0-66.0); PLATELET COUNT, AUTOMATED 253 10^3/uL (150-450); RED BLOOD COUNT 4.68 10^6/uL (4.00-5.40); WHITE BLOOD COUNT 4.6 10^3/uL (4.0-10.0)
[2021-06-10 18:01] LABS: ALBUMIN 3.8 GM/DL (3.2-5.2); ALT/SGPT 49 U/L (12-78); BILIRUBIN,DIRECT 0.1 MG/DL (0.0-0.2); BILIRUBIN,TOTAL 0.4 MG/DL (0.2-1.0); BLOOD UREA NITROGEN 13 MG/DL (7-18); CALCIUM LEVEL 9.9 MG/DL (8.8-10.2); CARBON DIOXIDE LEVEL 31 MEQ/L (21-32); CHLORIDE LEVEL 106 MEQ/L (98-107); CREATININE FOR GFR 0.72 MG/DL (0.55-1.30); GLOMERULAR FILTRATION RATE > 60.0 (>45); GLUCOSE, FASTING 92 MG/DL (70-100); POTASSIUM SERUM 4.8 MEQ/L (3.5-5.1); SODIUM LEVEL 141 MEQ/L (136-145); TOTAL PROTEIN 7.4 GM/DL (6.4-8.2)
[2021-06-10 18:03] LABS: ERYTHROCYTE SEDIMENTATION RATE 17 mm/hr (0-30)
== END ==
LOC: M SFHCRHEU 11:46
PROVIDERS: ATTEND Internal Medicine
DX: M06.09 Rheumatoid arthritis without rheumatoid factor, multiple sites (principal)

== ENCOUNTER 2021-06-14 10:59 | Outpatient (CLI) | payer OTHER ==
[~2021-06-14] VITALS: Ht 157.5 cm; Wt 81.2 kg
[~2021-06-14 10:59] MED LIST changes: +ALBUTEROL SULFATE 2.5 MG/0.5 ML INH NEB SOLN INH PRN; +EPINEPHrine INJ 1 MG/ML 1ML AMP IM PRN; +diphenhydrAMINE 50MG/ML VIAL (J1200) IV PRN; +methylPREDNISolone 125MG 2ML VIAL IV PRN
[2021-06-14] MEDS ORDERED: NS 1,000 ML IV SCH (11:00)
[2021-06-14] MEDS ORDERED: INFLIXIMAB BIOSIMILAR 400 MG in NS 210 ML IV ONE (11:00)
[2021-06-14 11:24] VITALS: BP 128/60
[2021-06-14 12:45] VITALS: BP 116/68
== END 2021-06-14 13:00 | disposition home or self-care (01) ==
LOC: M INFU 10:59
PROVIDERS: ATTEND Internal Medicine
DX: M06.09 Rheumatoid arthritis without rheumatoid factor, multiple sites (principal); Z88.2 Allergy status to sulfonamides; Z88.6 Allergy status to analgesic agent; Z88.8 Allergy status to other drugs, medicaments and biological substances
CPT/HCPCS: 96365; Q5103

== ENCOUNTER → 2021-07-24 | Outpatient (CLI) | payer OTHER ==
[~2021-07-24] MED LIST changes: -ALBUTEROL SULFATE 2.5 MG/0.5 ML INH NEB SOLN INH PRN; -EPINEPHrine INJ 1 MG/ML 1ML AMP IM PRN; -diphenhydrAMINE 50MG/ML VIAL (J1200) IV PRN; -methylPREDNISolone 125MG 2ML VIAL IV PRN
--- NOTE | 2021-07-24 16:10 | REPMRS ---
Patient History The patient states she had a clinical breast exam in July 2021. Family history of breast cancer at age 50 or over in paternal grandmother, colorectal cancer and prostate cancer at age 50 or over in father. Took estrogen for 3 years. Took progesterone for 3 years. Tomosynthesis is performed. Volpara breast density is b. [facility] lifetime risk of breast cancer 12.9%. Patient states no breast complaints today. Patient has signed MRS History Sheet. Digital Woman Screen Mammo: July 24, 2021 - Exam #: [id number] Bilateral CC and MLO view(s) were taken. Technologist: Donita Garcia, Technologist Prior study comparison: June 25, 2020, bilateral digital woman screen mammo performed at [facility]. June 24, 2019, bilateral digital woman screen mammo performed at [facility]. FINDINGS: There are scattered fibroglandular densities. There has been no change in the appearance of the mammogram from the prior studies. There is a mild amount of residual fibroglandular tissue which is fairly symmetric. There is no interval development of dominant mass, architectural distortion, or clustered microcalcification suggestive of malignancy. Assessment: BI-RADS/ACR category 1 mammogram. Negative Mammogram. Recommendation Routine screening mammogram in 1 year (for women over age 40). This mammogram was interpreted with the aid of an FDA-approved computer-aided dectection system. Electronically Signed By: Orlando Champagne MD 07/24/21 9383
== END ==
LOC: M WHC 14:05
PROVIDERS: ATTEND Nurse Practitioner Women's Health
DX: Z12.31 Encounter for screening mammogram for malignant neoplasm of breast (principal); Z80.3 Family history of malignant neoplasm of breast; Z80.0 Family history of malignant neoplasm of digestive organs

== ENCOUNTER → 2021-09-12 | Outpatient (CLI) | payer OTHER ==
[2021-09-12 08:52] LABS: BASO % 0.7 % (0.0-1.0); EOS # 0.3 10^3/uL (0.0-0.5); EOS % 6.8 % (0.0-3.0); HEMATOCRIT 43.3 % (36.0-47.0); HEMOGLOBIN 13.9 g/dl (12.0-15.5); LYMPH # 1.8 10^3/uL (1.5-5.0); LYMPH % 39.8 % (24.0-44.0); MEAN CORPUSCULAR HEMOGLOBIN 29.4 pg (27.0-33.0); MEAN CORPUSCULAR HGB CONC 32.1 g/dl (32.0-36.5); MEAN CORPUSCULAR VOLUME 91.7 fl (80.0-96.0); MONO # 0.6 10^3/uL (0.0-0.8); MONO % 13.6 % (2.0-8.0); NEUTROPHILS # 1.8 10^3/uL (1.5-8.5); NEUTROPHILS % 38.9 % (36.0-66.0); PLATELET COUNT, AUTOMATED 218 10^3/uL (150-450); RED BLOOD COUNT 4.72 10^6/uL (4.00-5.40); WHITE BLOOD COUNT 4.6 10^3/uL (4.0-10.0)
[2021-09-12 09:12] LABS: ALBUMIN 3.4 GM/DL (3.2-5.2); ALT/SGPT 42 U/L (12-78); BILIRUBIN,TOTAL 0.3 MG/DL (0.2-1.0); BLOOD UREA NITROGEN 19 MG/DL (7-18); CALCIUM LEVEL 9.1 MG/DL (8.8-10.2); CARBON DIOXIDE LEVEL 28 MEQ/L (21-32); CHLORIDE LEVEL 109 MEQ/L (98-107); CHOLESTEROL LEVEL 264 MG/DL (<200); CHOLESTEROL RISK RATIO 3.616 (<5); CREATININE FOR GFR 0.86 MG/DL (0.55-1.30); GLOMERULAR FILTRATION RATE > 60.0 (>45); GLUCOSE, FASTING 103 MG/DL (70-100); HDL CHOLESTEROL 73 MG/DL (>40); LDL CHOLESTEROL 171 MG/DL (<100); NON-HDL-C 191 MG/DL; POTASSIUM SERUM 4.7 MEQ/L (3.5-5.1); SODIUM LEVEL 140 MEQ/L (136-145); TOTAL PROTEIN 7.1 GM/DL (6.4-8.2); TRIGLYCERIDES LEVEL 101 MG/DL (<150)
== END ==
LOC: M LAB 08:07
PROVIDERS: ATTEND Nurse Practitioner Family
DX: Z01.812 Encounter for preprocedural laboratory examination (principal)

== ENCOUNTER → 2021-10-28 | Outpatient (REF) | payer OTHER ==
[2021-10-28 18:07] LABS: ALBUMIN 3.6 GM/DL (3.2-5.2); ALT/SGPT 57 U/L (12-78); BILIRUBIN,DIRECT < 0.1 MG/DL (0.0-0.2); BILIRUBIN,TOTAL 0.4 MG/DL (0.2-1.0); BLOOD UREA NITROGEN 15 MG/DL (7-18); C REACTIVE PROTEIN QUANTITATIV 0.51 MG/DL (0.00-0.30); CALCIUM LEVEL 9.6 MG/DL (8.8-10.2); CARBON DIOXIDE LEVEL 28 MEQ/L (21-32); CHLORIDE LEVEL 105 MEQ/L (98-107); CREATININE FOR GFR 0.69 MG/DL (0.55-1.30); GLOMERULAR FILTRATION RATE > 60.0 (>45); GLUCOSE, FASTING 92 MG/DL (70-100); POTASSIUM SERUM 4.4 MEQ/L (3.5-5.1); SODIUM LEVEL 141 MEQ/L (136-145); TOTAL PROTEIN 7.2 GM/DL (6.4-8.2)
[2021-10-28 18:47] LABS: BASO % 0.6 % (0.0-1.0); EOS # 0.3 10^3/uL (0.0-0.5); HEMATOCRIT 43.7 % (36.0-47.0); HEMOGLOBIN 13.9 g/dl (12.0-15.5); LYMPH # 1.4 10^3/uL (1.5-5.0); LYMPH % 22.6 % (24.0-44.0); MEAN CORPUSCULAR HEMOGLOBIN 29.5 pg (27.0-33.0); MEAN CORPUSCULAR HGB CONC 31.8 g/dl (32.0-36.5); MEAN CORPUSCULAR VOLUME 92.8 fl (80.0-96.0); MONO # 0.7 10^3/uL (0.0-0.8); MONO % 11.6 % (2.0-8.0); NEUTROPHILS # 3.8 10^3/uL (1.5-8.5); NEUTROPHILS % 60.6 % (36.0-66.0); PLATELET COUNT, AUTOMATED 297 10^3/uL (150-450); RED BLOOD COUNT 4.71 10^6/uL (4.00-5.40); WHITE BLOOD COUNT 6.3 10^3/uL (4.0-10.0)
[2021-10-28 19:40] LABS: ERYTHROCYTE SEDIMENTATION RATE 27 mm/hr (0-30)
== END ==
LOC: M SFHCRHEU 11:38
PROVIDERS: ATTEND Internal Medicine
DX: M06.9 Rheumatoid arthritis, unspecified (principal); M75.81 Other shoulder lesions, right shoulder; M17.10 Unilateral primary osteoarthritis, unspecified knee; L40.50 Arthropathic psoriasis, unspecified; Z79.899 Other long term (current) drug therapy; M77.00 Medial epicondylitis, unspecified elbow; M77.10 Lateral epicondylitis, unspecified elbow

== ENCOUNTER 2021-11-07 10:06 | Outpatient (CLI) | payer OTHER ==
[~2021-11-07] VITALS: Ht 165.1 cm; Wt 83.0 kg
[~2021-11-07 10:06] MED LIST changes: +ALBUTEROL SULFATE 2.5 MG/0.5 ML INH NEB SOLN INH PRN; +EPINEPHrine INJ 1 MG/ML 1ML AMP IM PRN; +INFLIXIMAB BIOSIMILAR 400 MG in NS 210 ML IV ONE; +diphenhydrAMINE 50MG/ML VIAL (J1200) IV PRN; +methylPREDNISolone 125MG 2ML VIAL IV PRN
[2021-11-07 10:26] VITALS: BP 140/68
[2021-11-07] MEDS ORDERED: INFLIXIMAB BIOSIMILAR 400 MG in NS 210 ML IV ONE (10:30)
[2021-11-07 11:15] VITALS: BP 127/65
== END 2021-11-07 12:20 ==
LOC: M INFU 10:06
PROVIDERS: ATTEND Internal Medicine
DX: M06.09 Rheumatoid arthritis without rheumatoid factor, multiple sites (principal); Z88.2 Allergy status to sulfonamides; Z88.6 Allergy status to analgesic agent; Z88.8 Allergy status to other drugs, medicaments and biological substances
CPT/HCPCS: 96413; Q5103

== ENCOUNTER → 2021-12-09 | Outpatient (CLI) | payer OTHER ==
[~2021-12-09] MED LIST changes: -ALBUTEROL SULFATE 2.5 MG/0.5 ML INH NEB SOLN INH PRN; -EPINEPHrine INJ 1 MG/ML 1ML AMP IM PRN; -INFLIXIMAB BIOSIMILAR 400 MG in NS 210 ML IV ONE; -diphenhydrAMINE 50MG/ML VIAL (J1200) IV PRN; -methylPREDNISolone 125MG 2ML VIAL IV PRN
[2021-12-09 10:14] LABS: BASO % 0.7 % (0.0-1.0); EOS # 0.2 10^3/uL (0.0-0.5); EOS % 5.5 % (0.0-3.0); HEMATOCRIT 43.3 % (36.0-47.0); HEMOGLOBIN 14.1 g/dl (12.0-15.5); LYMPH # 1.6 10^3/uL (1.5-5.0); LYMPH % 37.1 % (24.0-44.0); MEAN CORPUSCULAR HEMOGLOBIN 29.4 pg (27.0-33.0); MEAN CORPUSCULAR HGB CONC 32.6 g/dl (32.0-36.5); MEAN CORPUSCULAR VOLUME 90.4 fl (80.0-96.0); MONO # 0.5 10^3/uL (0.0-0.8); MONO % 12.4 % (2.0-8.0); NEUTROPHILS # 1.8 10^3/uL (1.5-8.5); NEUTROPHILS % 44.1 % (36.0-66.0); PLATELET COUNT, AUTOMATED 241 10^3/uL (150-450); RED BLOOD COUNT 4.79 10^6/uL (4.00-5.40); WHITE BLOOD COUNT 4.2 10^3/uL (4.0-10.0)
[2021-12-09 10:36] LABS: ERYTHROCYTE SEDIMENTATION RATE 13 mm/hr (0-30)
[2021-12-09 10:46] LABS: ALBUMIN 3.8 GM/DL (3.2-5.2); ALT/SGPT 37 U/L (12-78); BILIRUBIN,DIRECT 0.1 MG/DL (0.0-0.2); BILIRUBIN,TOTAL 0.4 MG/DL (0.2-1.0); BLOOD UREA NITROGEN 13 MG/DL (7-18); CALCIUM LEVEL 9.3 MG/DL (8.8-10.2); CARBON DIOXIDE LEVEL 28 MEQ/L (21-32); CHLORIDE LEVEL 108 MEQ/L (98-107); CREATININE FOR GFR 0.64 MG/DL (0.55-1.30); GLOMERULAR FILTRATION RATE > 60.0 (>45); GLUCOSE, FASTING 93 MG/DL (70-100); POTASSIUM SERUM 4.4 MEQ/L (3.5-5.1); SODIUM LEVEL 140 MEQ/L (136-145); TOTAL PROTEIN 7.4 GM/DL (6.4-8.2)
== END ==
LOC: M LAB 09:06
PROVIDERS: ATTEND Internal Medicine
DX: M06.09 Rheumatoid arthritis without rheumatoid factor, multiple sites (principal)

== ENCOUNTER 2022-01-02 09:49 | Outpatient (CLI) | payer OTHER ==
[~2022-01-02] VITALS: Ht 165.1 cm; Wt 79.5 kg
[~2022-01-02 09:49] MED LIST changes: +ALBUTEROL SULFATE 2.5 MG/0.5 ML INH NEB SOLN INH PRN; +EPINEPHrine INJ 1 MG/ML 1ML AMP IM PRN; +diphenhydrAMINE 50MG/ML VIAL (J1200) IV PRN; +methylPREDNISolone 125MG 2ML VIAL IV PRN
[2022-01-02 09:50] VITALS: BP 133/77
[2022-01-02 10:08] VITALS: BP 133/77
[2022-01-02] MEDS ORDERED: INFLIXIMAB BIOSIMILAR 400 MG in NS 210 ML IV ONE (10:30)
[2022-01-02 11:00] VITALS: BP 109/56
[2022-01-02 12:00] VITALS: BP 112/59
== END 2022-01-02 12:00 | disposition home or self-care (01) ==
LOC: M INFU 09:49
PROVIDERS: ATTEND Internal Medicine
DX: M06.09 Rheumatoid arthritis without rheumatoid factor, multiple sites (principal); Z88.2 Allergy status to sulfonamides; Z88.6 Allergy status to analgesic agent; Z88.8 Allergy status to other drugs, medicaments and biological substances
CPT/HCPCS: 96413; Q5103

== ENCOUNTER 2022-02-27 10:03 | Outpatient (CLI) | payer OTHER ==
[~2022-02-27] VITALS: Ht 167.6 cm; Wt 81.8 kg
[2022-02-27] MEDS ORDERED: INFLIXIMAB BIOSIMILAR 400 MG in NS 210 ML IV ONE (10:30)
[2022-02-27 10:40] VITALS: BP 140/70
[2022-02-27 11:32] VITALS: BP 123/66
[2022-02-27 12:25] VITALS: BP 123/60
== END 2022-02-27 12:25 | disposition home or self-care (01) ==
LOC: M INFU 10:03
PROVIDERS: ATTEND Internal Medicine
DX: M06.09 Rheumatoid arthritis without rheumatoid factor, multiple sites (principal); Z88.2 Allergy status to sulfonamides; Z88.6 Allergy status to analgesic agent; Z88.8 Allergy status to other drugs, medicaments and biological substances
CPT/HCPCS: 96413; Q5103

== ENCOUNTER → 2022-03-06 | Outpatient (CLI) | payer OTHER ==
[~2022-03-06] MED LIST changes: -ALBUTEROL SULFATE 2.5 MG/0.5 ML INH NEB SOLN INH PRN; -EPINEPHrine INJ 1 MG/ML 1ML AMP IM PRN; -diphenhydrAMINE 50MG/ML VIAL (J1200) IV PRN; -methylPREDNISolone 125MG 2ML VIAL IV PRN
[2022-03-06 11:46] LABS: BASO % 0.8 % (0.0-1.0); EOS # 0.2 10^3/uL (0.0-0.5); HEMATOCRIT 43.4 % (36.0-47.0); LYMPH % 38.9 % (24.0-44.0); MEAN CORPUSCULAR HEMOGLOBIN 30.1 pg (27.0-33.0); MEAN CORPUSCULAR HGB CONC 32.3 g/dl (32.0-36.5); MEAN CORPUSCULAR VOLUME 93.3 fl (80.0-96.0); MONO # 0.6 10^3/uL (0.0-0.8); MONO % 12.3 % (2.0-8.0); NEUTROPHILS # 2.2 10^3/uL (1.5-8.5); NEUTROPHILS % 43.8 % (36.0-66.0); PLATELET COUNT, AUTOMATED 231 10^3/uL (150-450); RED BLOOD COUNT 4.65 10^6/uL (4.00-5.40)
[2022-03-06 12:27] LABS: ERYTHROCYTE SEDIMENTATION RATE 14 mm/hr (0-30)
[2022-03-06 13:02] LABS: ALBUMIN 3.7 GM/DL (3.2-5.2); ALT/SGPT 37 U/L (12-78); BILIRUBIN,DIRECT < 0.1 MG/DL (0.0-0.2); BILIRUBIN,TOTAL 0.4 MG/DL (0.2-1.0); BLOOD UREA NITROGEN 13 MG/DL (7-18); CALCIUM LEVEL 10.2 MG/DL (8.8-10.2); CARBON DIOXIDE LEVEL 29 MEQ/L (21-32); CHLORIDE LEVEL 109 MEQ/L (98-107); CREATININE FOR GFR 0.65 MG/DL (0.55-1.30); GLOMERULAR FILTRATION RATE > 60.0 (>45); GLUCOSE, FASTING 88 MG/DL (70-100); POTASSIUM SERUM 4.6 MEQ/L (3.5-5.1); SODIUM LEVEL 143 MEQ/L (136-145); TOTAL PROTEIN 7.3 GM/DL (6.4-8.2)
== END ==
LOC: M LAB 10:46
PROVIDERS: ATTEND Internal Medicine
DX: M06.09 Rheumatoid arthritis without rheumatoid factor, multiple sites (principal)

== ENCOUNTER → 2022-06-06 | Outpatient (REF) | payer OTHER ==
[2022-06-06 16:33] LABS: BASO # 0.1 10^3/uL (0.0-0.2); EOS # 0.1 10^3/uL (0.0-0.5); EOS % 2.5 % (0.0-3.0); HEMATOCRIT 40.9 % (36.0-47.0); HEMOGLOBIN 13.3 g/dl (12.0-15.5); LYMPH # 1.9 10^3/uL (1.5-5.0); LYMPH % 35.5 % (24.0-44.0); MEAN CORPUSCULAR HEMOGLOBIN 30.6 pg (27.0-33.0); MEAN CORPUSCULAR HGB CONC 32.5 g/dl (32.0-36.5); MONO # 0.6 10^3/uL (0.0-0.8); MONO % 11.8 % (2.0-8.0); NEUTROPHILS # 2.6 10^3/uL (1.5-8.5); PLATELET COUNT, AUTOMATED 239 10^3/uL (150-450); RED BLOOD COUNT 4.35 10^6/uL (4.00-5.40); WHITE BLOOD COUNT 5.2 10^3/uL (4.0-10.0)
[2022-06-06 17:08] LABS: ALBUMIN 3.6 GM/DL (3.2-5.2); ALT/SGPT 31 U/L (12-78); BILIRUBIN,DIRECT < 0.1 MG/DL (0.0-0.2); BILIRUBIN,TOTAL 0.2 MG/DL (0.2-1.0); BLOOD UREA NITROGEN 17 MG/DL (7-18); CALCIUM LEVEL 9.4 MG/DL (8.8-10.2); CARBON DIOXIDE LEVEL 30 MEQ/L (21-32); CHLORIDE LEVEL 108 MEQ/L (98-107); CREATININE FOR GFR 0.66 MG/DL (0.55-1.30); GLOMERULAR FILTRATION RATE > 60.0 (>45); GLUCOSE, FASTING 77 MG/DL (70-100); SODIUM LEVEL 139 MEQ/L (136-145)
[2022-06-06 17:09] LABS: ERYTHROCYTE SEDIMENTATION RATE 19 mm/hr (0-30)
== END ==
LOC: M SFHCCLAY 09:48
PROVIDERS: ATTEND Internal Medicine
DX: M06.09 Rheumatoid arthritis without rheumatoid factor, multiple sites (principal)

== ENCOUNTER 2022-06-30 09:32 | Outpatient (CLI) | payer OTHER ==
[~2022-06-30] VITALS: Ht 167.6 cm; Wt 80.7 kg
[~2022-06-30 09:32] MED LIST changes: +ALBUTEROL SULFATE 2.5 MG/0.5 ML INH NEB SOLN INH PRN; +EPINEPHrine INJ 1 MG/ML 1ML AMP IM PRN; +diphenhydrAMINE 50MG/ML VIAL (J1200) IV PRN; +methylPREDNISolone 125MG 2ML VIAL IV PRN
[2022-06-30 09:40] VITALS: BP 127/63
[2022-06-30 09:56] VITALS: BP 127/63
[2022-06-30] MEDS ORDERED: NS 1,000 ML IV SCH (10:00)
[2022-06-30] MEDS ORDERED: INFLIXIMAB BIOSIMILAR 400 MG in NS 210 ML IV ONE (10:00)
[2022-06-30 10:15] VITALS: BP 127/63
[2022-06-30 11:25] VITALS: BP 130/65
== END 2022-06-30 11:30 | disposition home or self-care (01) ==
LOC: M INFU 09:32
PROVIDERS: ATTEND Internal Medicine
DX: M06.9 Rheumatoid arthritis, unspecified (principal); Z88.2 Allergy status to sulfonamides; Z88.5 Allergy status to narcotic agent; Z88.6 Allergy status to analgesic agent; Z88.8 Allergy status to other drugs, medicaments and biological substances
CPT/HCPCS: 96413; Q5103

== ENCOUNTER → 2022-08-05 | Outpatient (REF) | payer OTHER ==
[~2022-08-05] MED LIST changes: -ALBUTEROL SULFATE 2.5 MG/0.5 ML INH NEB SOLN INH PRN; -EPINEPHrine INJ 1 MG/ML 1ML AMP IM PRN; -diphenhydrAMINE 50MG/ML VIAL (J1200) IV PRN; -methylPREDNISolone 125MG 2ML VIAL IV PRN
[2022-08-05 17:40] LABS: BASO % 0.5 % (0.0-1.0); EOS # 0.2 10^3/uL (0.0-0.5); HEMATOCRIT 42.8 % (36.0-47.0); HEMOGLOBIN 13.5 g/dl (12.0-15.5); LYMPH # 2.1 10^3/uL (1.5-5.0); LYMPH % 26.6 % (24.0-44.0); MEAN CORPUSCULAR HEMOGLOBIN 30.7 pg (27.0-33.0); MEAN CORPUSCULAR HGB CONC 31.5 g/dl (32.0-36.5); MEAN CORPUSCULAR VOLUME 97.3 fl (80.0-96.0); MONO # 0.7 10^3/uL (0.0-0.8); MONO % 9.1 % (2.0-8.0); NEUTROPHILS # 4.9 10^3/uL (1.5-8.5); NEUTROPHILS % 61.4 % (36.0-66.0); PLATELET COUNT, AUTOMATED 270 10^3/uL (150-450); WHITE BLOOD COUNT 7.9 10^3/uL (4.0-10.0)
[2022-08-05 18:02] LABS: ERYTHROCYTE SEDIMENTATION RATE 14 mm/hr (0-30)
[2022-08-05 18:39] LABS: ALT/SGPT 52 U/L (7.0-40); BILIRUBIN,DIRECT < 0.1 MG/DL (<0.4); BILIRUBIN,TOTAL 0.3 MG/DL (0.3-1.2); BLOOD UREA NITROGEN 22 MG/DL (9-23); CALCIUM LEVEL 9.6 MG/DL (8.3-10.6); CARBON DIOXIDE LEVEL 28 MMOL/L (20-31); CHLORIDE LEVEL 104 MMOL/L (98-107); CREATININE FOR GFR 0.65 MG/DL (0.55-1.30); GLOMERULAR FILTRATION RATE > 60.0 (>45); GLUCOSE, FASTING 81 MG/DL (74-106); POTASSIUM SERUM 4.8 MMOL/L (3.5-5.1); SODIUM LEVEL 141 MMOL/L (136-145); TOTAL PROTEIN 7.2 G/DL (5.7-8.2)
== END ==
LOC: M SFHCRHEU 12:26
PROVIDERS: ATTEND Internal Medicine
DX: M06.09 Rheumatoid arthritis without rheumatoid factor, multiple sites (principal)

== ENCOUNTER 2022-08-25 10:00 | Outpatient (CLI) | payer OTHER ==
[~2022-08-25] VITALS: Ht 167.6 cm; Wt 80.5 kg
[~2022-08-25 10:00] MED LIST changes: +ALBUTEROL SULFATE 2.5 MG/0.5 ML INH NEB SOLN INH PRN; +EPINEPHrine INJ 1 MG/ML 1ML AMP IM PRN; +diphenhydrAMINE 50MG/ML VIAL IV PRN; +methylPREDNISolone 125MG 2ML VIAL IV PRN
[2022-08-25 10:08] VITALS: BP 132/64
[2022-08-25] MEDS ORDERED: INFLIXIMAB BIOSIMILAR 400 MG in NS 210 ML IV ONE (10:30)
[2022-08-25 12:30] VITALS: BP 116/58
== END 2022-08-25 12:30 | disposition home or self-care (01) ==
LOC: M INFU 10:00
PROVIDERS: ATTEND Internal Medicine
DX: M06.9 Rheumatoid arthritis, unspecified (principal); Z88.2 Allergy status to sulfonamides; Z88.5 Allergy status to narcotic agent; Z88.6 Allergy status to analgesic agent
CPT/HCPCS: 96413; Q5103

== ENCOUNTER 2022-10-20 10:30 | Outpatient (CLI) | payer MEDICARE ==
[~2022-10-20] VITALS: Ht 165.7 cm; Wt 82.2 kg
[~2022-10-20 10:30] MED LIST changes: -ALBUTEROL SULFATE 2.5 MG/0.5 ML INH NEB SOLN INH PRN; +ALBUTEROL SULFATE 2.5MG/0.5ML INH NEB SOLN INH PRN
[2022-10-20] MEDS ORDERED: INFLIXIMAB BIOSIMILAR 400 MG in NS 210 ML IV ONE (10:40)
[2022-10-20] MEDS ORDERED: NS 1,000 ML IV SCH (10:40)
[2022-10-20 12:37] VITALS: BP 127/58
== END 2022-10-20 11:35 | disposition home or self-care (01) ==
LOC: M INFU 10:30
PROVIDERS: ATTEND Internal Medicine
DX: M06.9 Rheumatoid arthritis, unspecified (principal); Z88.2 Allergy status to sulfonamides; Z88.5 Allergy status to narcotic agent; Z88.6 Allergy status to analgesic agent; Z88.8 Allergy status to other drugs, medicaments and biological substances
CPT/HCPCS: 96413; Q5103

== ENCOUNTER → 2022-10-27 | Outpatient (REF) | payer OTHER, MEDICARE ==
[~2022-10-27] MED LIST changes: -ALBUTEROL SULFATE 2.5MG/0.5ML INH NEB SOLN INH PRN; -EPINEPHrine INJ 1 MG/ML 1ML AMP IM PRN; -diphenhydrAMINE 50MG/ML VIAL IV PRN; -methylPREDNISolone 125MG 2ML VIAL IV PRN
== END ==
LOC: M PLALAB 09:12
PROVIDERS: ATTEND Nurse Practitioner Family
DX: Z12.4 Encounter for screening for malignant neoplasm of cervix (principal)

== ENCOUNTER → 2022-10-27 | Outpatient (CLI) | payer MEDICARE | LOC: M WHC 08:31 | PROVIDERS: ATTEND Nurse Practitioner Family | DX: R91.8 Other nonspecific abnormal finding of lung field (principal); Z12.31 Encounter for screening mammogram for malignant neoplasm of breast ==

== ENCOUNTER → 2022-11-18 | Outpatient (CLI) | payer MEDICARE, OTHER | LOC: M WHC 09:17 | PROVIDERS: ATTEND Nurse Practitioner Family | DX: R92.2 Inconclusive mammogram (principal) | CPT/HCPCS: 77065; G0279 ==

== ENCOUNTER → 2022-12-02 | Outpatient (CLI) | payer MEDICARE, OTHER ==
[2022-12-02 10:35] LABS: BASO % 0.6 % (0.0-1.0); EOS # 0.1 10^3/uL (0.0-0.5); EOS % 2.5 % (0.0-3.0); HEMATOCRIT 40.7 % (36.0-47.0); HEMOGLOBIN 13.5 g/dl (12.0-15.5); LYMPH # 1.5 10^3/uL (1.5-5.0); LYMPH % 29.2 % (24.0-44.0); MEAN CORPUSCULAR HEMOGLOBIN 30.9 pg (27.0-33.0); MEAN CORPUSCULAR HGB CONC 33.2 g/dl (32.0-36.5); MEAN CORPUSCULAR VOLUME 93.1 fl (80.0-96.0); MONO # 0.7 10^3/uL (0.0-0.8); MONO % 12.8 % (2.0-8.0); NEUTROPHILS # 2.9 10^3/uL (1.5-8.5); NEUTROPHILS % 54.7 % (36.0-66.0); PLATELET COUNT, AUTOMATED 230 10^3/uL (150-450); RED BLOOD COUNT 4.37 10^6/uL (4.00-5.40); WHITE BLOOD COUNT 5.2 10^3/uL (4.0-10.0)
[2022-12-02 10:57] LABS: ERYTHROCYTE SEDIMENTATION RATE 28 mm/hr (0-30)
[2022-12-02 10:59] LABS: ALBUMIN 3.5 G/DL (3.2-5.2); ALKALINE PHOSPHATASE 110 U/L (46-116); ALT/SGPT 43 U/L (7.0-40); AST/SGOT 32 U/L (<34); BILIRUBIN,DIRECT 0.1 MG/DL (<0.4); BILIRUBIN,TOTAL 0.4 MG/DL (0.3-1.2); BLOOD UREA NITROGEN 15 MG/DL (9-23); CALCIUM LEVEL 9.1 MG/DL (8.3-10.6); CARBON DIOXIDE LEVEL 27 MMOL/L (20-31); CHLORIDE LEVEL 109 MMOL/L (98-107); CREATININE FOR GFR 0.61 MG/DL (0.55-1.30); GLOMERULAR FILTRATION RATE > 60.0 (>45); GLUCOSE, FASTING 91 MG/DL (74-106); POTASSIUM SERUM 4.4 MMOL/L (3.5-5.1); SODIUM LEVEL 141 MMOL/L (136-145); TOTAL PROTEIN 6.5 G/DL (5.7-8.2)
== END ==
LOC: M LAB 09:25
PROVIDERS: ATTEND Internal Medicine
DX: M06.09 Rheumatoid arthritis without rheumatoid factor, multiple sites (principal)

== ENCOUNTER 2022-12-15 10:14 | Outpatient (CLI) | payer MEDICARE, OTHER ==
[~2022-12-15] VITALS: Ht 168.9 cm; Wt 74.5 kg
[2022-12-15] MEDS ORDERED: ALBUTEROL SULFATE 2.5MG/0.5ML INH NEB SOLN INH PRN (10:30)
[2022-12-15] MEDS ORDERED: EPINEPHrine INJ 1 MG/ML 1ML AMP IM PRN (10:30)
[2022-12-15] MEDS ORDERED: methylPREDNISolone 125MG 2ML VIAL IV PRN (10:30)
[2022-12-15] MEDS ORDERED: diphenhydrAMINE 50MG/ML VIAL IV PRN (10:30)
[2022-12-15] MEDS ORDERED: INFLIXIMAB BIOSIMILAR 400 MG in NS 210 ML IV ONE (10:30)
[2022-12-15] MEDS ORDERED: NS 1,000 ML IV SCH (10:30)
[2022-12-15 10:48] VITALS: BP 140/61
[2022-12-15 11:20] VITALS: BP 126/71
[2022-12-15 12:10] VITALS: BP 140/70
== END 2022-12-15 12:10 | disposition home or self-care (01) ==
LOC: M INFU 10:14
PROVIDERS: ATTEND Internal Medicine
DX: M06.09 Rheumatoid arthritis without rheumatoid factor, multiple sites (principal); Z88.2 Allergy status to sulfonamides; Z88.5 Allergy status to narcotic agent; Z88.6 Allergy status to analgesic agent
CPT/HCPCS: 96413; Q5103

== ENCOUNTER → 2023-01-01 | Outpatient (CLI) | payer MEDICARE | LOC: M RAD 12:41 | PROVIDERS: ATTEND Internal Medicine | DX: M19.011 Primary osteoarthritis, right shoulder (principal); M75.81 Other shoulder lesions, right shoulder ==

== ENCOUNTER → 2023-01-01 | Outpatient (REF) | payer MEDICARE ==
[2023-01-01 13:49] LABS: C REACTIVE PROTEIN QUANTITATIV < 0.40 MG/DL (<1.0)
[2023-01-01 13:50] LABS: ALBUMIN 3.9 G/DL (3.2-5.2); ALKALINE PHOSPHATASE 116 U/L (46-116); ALT/SGPT 46 U/L (7.0-40); AST/SGOT 33 U/L (<34); BILIRUBIN,DIRECT 0.1 MG/DL (<0.4); BILIRUBIN,TOTAL 0.4 MG/DL (0.3-1.2); TOTAL PROTEIN 7.5 G/DL (5.7-8.2)
== END ==
LOC: M SFHCRHEU 11:24
PROVIDERS: ATTEND Internal Medicine
DX: M06.09 Rheumatoid arthritis without rheumatoid factor, multiple sites (principal); R74.01 Elevation of levels of liver transaminase levels

== ENCOUNTER → 2023-01-29 | Outpatient (CLI) | payer MEDICARE ==
[2023-01-29 10:57] LABS: CHOLESTEROL RISK RATIO 3.15 (<5); HDL CHOLESTEROL 74.4 MG/DL (>40); LDL CHOLESTEROL 136.4 MG/DL (<100); NON-HDL-C 160.6 MG/DL
== END ==
LOC: M LAB 09:45
PROVIDERS: ATTEND Nurse Practitioner Family
DX: E78.5 Hyperlipidemia, unspecified (principal)

== ENCOUNTER 2023-02-10 10:00 | Outpatient (CLI) | payer MEDICARE ==
[~2023-02-10] VITALS: Ht 165.7 cm; Wt 77.2 kg
[~2023-02-10 10:00] MED LIST changes: +ALBUTEROL SULFATE 2.5MG/0.5ML INH NEB SOLN INH PRN; +EPINEPHrine INJ 1 MG/ML 1ML AMP IM PRN; +INFLIXIMAB BIOSIMILAR 400 MG in NS 210 ML IV ONE; +diphenhydrAMINE 50MG/ML VIAL IV PRN; +methylPREDNISolone 125MG 2ML VIAL IV PRN
[2023-02-10 10:09] VITALS: BP 118/57
[2023-02-10 10:50] VITALS: BP 108/55
[2023-02-10 11:43] VITALS: BP 136/62
== END 2023-02-10 11:45 | disposition home or self-care (01) ==
LOC: M INFU 10:00
PROVIDERS: ATTEND Internal Medicine
DX: M06.09 Rheumatoid arthritis without rheumatoid factor, multiple sites (principal); Z88.2 Allergy status to sulfonamides; Z88.5 Allergy status to narcotic agent; Z88.6 Allergy status to analgesic agent
CPT/HCPCS: 96413; Q5103

== ENCOUNTER → 2023-03-27 | Outpatient (REF) | payer MEDICARE ==
[~2023-03-27] MED LIST changes: -ALBUTEROL SULFATE 2.5MG/0.5ML INH NEB SOLN INH PRN; -EPINEPHrine INJ 1 MG/ML 1ML AMP IM PRN; -INFLIXIMAB BIOSIMILAR 400 MG in NS 210 ML IV ONE; -diphenhydrAMINE 50MG/ML VIAL IV PRN; -methylPREDNISolone 125MG 2ML VIAL IV PRN
[2023-03-27 16:51] LABS: BASO # 0.1 10^3/uL (0.0-0.2); EOS # 0.1 10^3/uL (0.0-0.5); EOS % 2.1 % (0.0-3.0); HEMATOCRIT 39.5 % (36.0-47.0); HEMOGLOBIN 12.9 g/dl (12.0-15.5); LYMPH # 1.7 10^3/uL (1.5-5.0); LYMPH % 31.4 % (24.0-44.0); MEAN CORPUSCULAR HEMOGLOBIN 30.9 pg (27.0-33.0); MEAN CORPUSCULAR HGB CONC 32.7 g/dl (32.0-36.5); MEAN CORPUSCULAR VOLUME 94.7 fl (80.0-96.0); MONO # 0.6 10^3/uL (0.0-0.8); NEUTROPHILS # 2.8 10^3/uL (1.5-8.5); NEUTROPHILS % 53.3 % (36.0-66.0); PLATELET COUNT, AUTOMATED 248 10^3/uL (150-450); RED BLOOD COUNT 4.17 10^6/uL (4.00-5.40); WHITE BLOOD COUNT 5.3 10^3/uL (4.0-10.0)
[2023-03-27 17:16] LABS: C REACTIVE PROTEIN QUANTITATIV < 0.40 MG/DL (<1.0)
[2023-03-27 17:17] LABS: ALBUMIN 3.6 G/DL (3.2-5.2); ALKALINE PHOSPHATASE 106 U/L (46-116); ALT/SGPT 31 U/L (7.0-40); AST/SGOT 22 U/L (<34); BILIRUBIN,DIRECT < 0.1 MG/DL (<0.4); BILIRUBIN,TOTAL 0.3 MG/DL (0.3-1.2); BLOOD UREA NITROGEN 22 MG/DL (9-23); CARBON DIOXIDE LEVEL 26 MMOL/L (20-31); CHLORIDE LEVEL 108 MMOL/L (98-107); CREATININE FOR GFR 0.63 MG/DL (0.55-1.30); GLOMERULAR FILTRATION RATE > 60.0 (>45); GLUCOSE, FASTING 86 MG/DL (74-106); POTASSIUM SERUM 4.4 MMOL/L (3.5-5.1); SODIUM LEVEL 141 MMOL/L (136-145); TOTAL PROTEIN 6.5 G/DL (5.7-8.2)
[2023-03-27 17:19] LABS: ERYTHROCYTE SEDIMENTATION RATE 10 mm/hr (0-30)
== END ==
LOC: M SFHCRHEU 12:02
PROVIDERS: ATTEND Internal Medicine
DX: M06.09 Rheumatoid arthritis without rheumatoid factor, multiple sites (principal)

== ENCOUNTER 2023-04-07 09:20 | Outpatient (CLI) | payer MEDICARE ==
[~2023-04-07] VITALS: Ht 167.6 cm; Wt 77.2 kg
[~2023-04-07 09:20] MED LIST changes: +ALBUTEROL SULFATE 2.5MG/0.5ML INH NEB SOLN INH PRN; +CURRENT HEIGHT AND WEIGHT NEEDED ON PATIENT XX SCH; +EPINEPHrine INJ 1 MG/ML 1ML AMP IM PRN; +diphenhydrAMINE 50MG/ML VIAL IV PRN; +methylPREDNISolone 125MG 2ML VIAL IV PRN
[2023-04-07] MEDS ORDERED: INFLIXIMAB BIOSIMILAR 400 MG in NS 210 ML IV ONE ×2 (10:00→10:30)
[2023-04-07 10:13] VITALS: BP 136/61; TEMP 97.8; O2SAT 99
[2023-04-07 11:50] VITALS: BP 128/60; TEMP 97.8; O2SAT 100
== END 2023-04-07 11:50 ==
LOC: M INFU 09:20
PROVIDERS: ATTEND Internal Medicine
DX: M06.09 Rheumatoid arthritis without rheumatoid factor, multiple sites (principal); Z88.2 Allergy status to sulfonamides; Z88.6 Allergy status to analgesic agent; Z88.8 Allergy status to other drugs, medicaments and biological substances
CPT/HCPCS: 96413; Q5103

== ENCOUNTER → 2023-05-11 | Outpatient (CLI) | payer MEDICARE ==
[~2023-05-11] MED LIST changes: -ALBUTEROL SULFATE 2.5MG/0.5ML INH NEB SOLN INH PRN; -CURRENT HEIGHT AND WEIGHT NEEDED ON PATIENT XX SCH; -EPINEPHrine INJ 1 MG/ML 1ML AMP IM PRN; -diphenhydrAMINE 50MG/ML VIAL IV PRN; -methylPREDNISolone 125MG 2ML VIAL IV PRN
[2023-05-11 12:12] LABS: BASO % 0.8 % (0.0-1.0); EOS # 0.1 10^3/uL (0.0-0.5); EOS % 2.8 % (0.0-3.0); HEMATOCRIT 39.2 % (36.0-47.0); HEMOGLOBIN 13.1 g/dl (12.0-15.5); LYMPH # 1.7 10^3/uL (1.5-5.0); LYMPH % 34.3 % (24.0-44.0); MEAN CORPUSCULAR HEMOGLOBIN 31.3 pg (27.0-33.0); MEAN CORPUSCULAR HGB CONC 33.4 g/dl (32.0-36.5); MEAN CORPUSCULAR VOLUME 93.6 fl (80.0-96.0); MONO # 0.5 10^3/uL (0.0-0.8); MONO % 9.1 % (2.0-8.0); NEUTROPHILS # 2.7 10^3/uL (1.5-8.5); NEUTROPHILS % 52.6 % (36.0-66.0); PLATELET COUNT, AUTOMATED 242 10^3/uL (150-450); RED BLOOD COUNT 4.19 10^6/uL (4.00-5.40); WHITE BLOOD COUNT 5.1 10^3/uL (4.0-10.0)
[2023-05-11 12:22] LABS: ERYTHROCYTE SEDIMENTATION RATE 27 mm/hr (0-30)
[2023-05-11 12:39] LABS: ALBUMIN 3.7 G/DL (3.2-5.2); ALKALINE PHOSPHATASE 115 U/L (46-116); ALT/SGPT 38 U/L (7.0-40); AST/SGOT 26 U/L (<34); BILIRUBIN,DIRECT 0.1 MG/DL (<0.4); BILIRUBIN,TOTAL 0.4 MG/DL (0.3-1.2); BLOOD UREA NITROGEN 17 MG/DL (9-23); C REACTIVE PROTEIN QUANTITATIV < 0.40 MG/DL (<1.0); CALCIUM LEVEL 9.4 MG/DL (8.3-10.6); CARBON DIOXIDE LEVEL 29 MMOL/L (20-31); CHLORIDE LEVEL 108 MMOL/L (98-107); CREATININE FOR GFR 0.67 MG/DL (0.55-1.30); GLOMERULAR FILTRATION RATE > 60.0 (>45); GLUCOSE, FASTING 85 MG/DL (74-106); POTASSIUM SERUM 4.7 MMOL/L (3.5-5.1); SODIUM LEVEL 143 MMOL/L (136-145); TOTAL PROTEIN 6.8 G/DL (5.7-8.2)
== END ==
LOC: M LAB 11:39
PROVIDERS: ATTEND Internal Medicine
DX: M06.09 Rheumatoid arthritis without rheumatoid factor, multiple sites (principal)

== ENCOUNTER 2023-06-02 11:40 | Outpatient (CLI) | payer MEDICARE ==
[~2023-06-02] VITALS: Ht 167.6 cm; Wt 79.2 kg
[2023-06-02 11:40] VITALS: BP 128/60; O2SAT 98
[~2023-06-02 11:40] MED LIST changes: +ALBUTEROL SULFATE 2.5MG/0.5ML INH NEB SOLN INH PRN; +EPINEPHrine INJ 1 MG/ML 1ML AMP IM PRN; +INFLIXIMAB BIOSIMILAR 500 MG in NS 200 ML IV ONE; +NS 1,000 ML IV SCH; +diphenhydrAMINE 50MG/ML VIAL IV PRN; +methylPREDNISolone 125MG 2ML VIAL IV PRN
[2023-06-02 13:30] VITALS: BP 139/65; O2SAT 99
== END 2023-06-02 13:30 ==
LOC: M INFU 11:40
PROVIDERS: ATTEND Internal Medicine
DX: M06.09 Rheumatoid arthritis without rheumatoid factor, multiple sites (principal); Z88.2 Allergy status to sulfonamides; Z88.5 Allergy status to narcotic agent; Z88.8 Allergy status to other drugs, medicaments and biological substances
CPT/HCPCS: 96413; Q5103

== ENCOUNTER 2023-07-28 09:22 | Outpatient (CLI) | payer MEDICARE ==
[~2023-07-28] VITALS: Ht 165.1 cm; Wt 78.0 kg
[2023-07-28 09:19] VITALS: BP 121/60; TEMP 97.9; O2SAT 98
[~2023-07-28 09:22] MED LIST changes: -INFLIXIMAB BIOSIMILAR 500 MG in NS 200 ML IV ONE; -NS 1,000 ML IV SCH
[2023-07-28] MEDS ORDERED: INFLIXIMAB BIOSIMILAR 500 MG in NS 200 ML IV ONE (10:00)
[2023-07-28 11:50] VITALS: BP 137/64; TEMP 97.8; O2SAT 100
== END 2023-07-28 11:55 ==
LOC: M INFU 09:22
PROVIDERS: ATTEND Internal Medicine
DX: M06.09 Rheumatoid arthritis without rheumatoid factor, multiple sites (principal); Z88.2 Allergy status to sulfonamides; Z88.5 Allergy status to narcotic agent; Z88.6 Allergy status to analgesic agent; Z88.8 Allergy status to other drugs, medicaments and biological substances
CPT/HCPCS: 96413; Q5103

== ENCOUNTER → 2023-08-04 | Outpatient (CLI) | payer MEDICARE ==
[~2023-08-04] MED LIST changes: -ALBUTEROL SULFATE 2.5MG/0.5ML INH NEB SOLN INH PRN; -EPINEPHrine INJ 1 MG/ML 1ML AMP IM PRN; -diphenhydrAMINE 50MG/ML VIAL IV PRN; -methylPREDNISolone 125MG 2ML VIAL IV PRN
[2023-08-04 08:53] LABS: BASO # 0.1 10^3/uL (0.0-0.2); BASO % 0.9 % (0.0-1.0); EOS # 0.2 10^3/uL (0.0-0.5); EOS % 3.7 % (0.0-3.0); HEMATOCRIT 43.1 % (36.0-47.0); HEMOGLOBIN 13.8 g/dl (12.0-15.5); LYMPH # 1.9 10^3/uL (1.5-5.0); LYMPH % 34.7 % (24.0-44.0); MEAN CORPUSCULAR HEMOGLOBIN 30.5 pg (27.0-33.0); MEAN CORPUSCULAR VOLUME 95.1 fl (80.0-96.0); MONO # 0.5 10^3/uL (0.0-0.8); MONO % 9.9 % (2.0-8.0); NEUTROPHILS # 2.8 10^3/uL (1.5-8.5); NEUTROPHILS % 50.4 % (36.0-66.0); PLATELET COUNT, AUTOMATED 252 10^3/uL (150-450); RED BLOOD COUNT 4.53 10^6/uL (4.00-5.40); WHITE BLOOD COUNT 5.5 10^3/uL (4.0-10.0)
[2023-08-04 08:59] LABS: ERYTHROCYTE SEDIMENTATION RATE 24 mm/hr (0-30)
[2023-08-04 09:18] LABS: C REACTIVE PROTEIN QUANTITATIV < 0.40 MG/DL (<1.0)
[2023-08-04 09:20] LABS: ALBUMIN 3.7 G/DL (3.2-5.2); ALKALINE PHOSPHATASE 118 U/L (46-116); ALT/SGPT 40 U/L (7.0-40); AST/SGOT 28 U/L (<34); BILIRUBIN,DIRECT 0.1 MG/DL (<0.4); BILIRUBIN,TOTAL 0.4 MG/DL (0.3-1.2); BLOOD UREA NITROGEN 17 MG/DL (9-23); CALCIUM LEVEL 9.1 MG/DL (8.3-10.6); CARBON DIOXIDE LEVEL 29 MMOL/L (20-31); CHLORIDE LEVEL 106 MMOL/L (98-107); CREATININE FOR GFR 0.66 MG/DL (0.55-1.30); GLOMERULAR FILTRATION RATE > 60.0 (>45); GLUCOSE, FASTING 99 MG/DL (74-106); POTASSIUM SERUM 4.3 MMOL/L (3.5-5.1); SODIUM LEVEL 142 MMOL/L (136-145)
== END ==
LOC: M LAB 08:20
PROVIDERS: ATTEND Internal Medicine
DX: M06.09 Rheumatoid arthritis without rheumatoid factor, multiple sites (principal)

== ENCOUNTER 2023-09-22 09:49 | Outpatient (CLI) | payer MEDICARE ==
[~2023-09-22] VITALS: Ht 167.6 cm; Wt 80.5 kg
[~2023-09-22 09:49] MED LIST changes: +ALBUTEROL SULFATE 2.5MG/0.5ML INH NEB SOLN INH PRN; +EPINEPHrine INJ 1 MG/ML 1ML AMP IM PRN; +diphenhydrAMINE 50MG/ML VIAL IV PRN; +methylPREDNISolone 125MG 2ML VIAL IV PRN
[2023-09-22] MEDS ORDERED: INFLIXIMAB BIOSIMILAR 500 MG in NS 200 ML IV ONE (10:00)
[2023-09-22 10:18] VITALS: BP 134/65; TEMP 97.2; O2SAT 100
[2023-09-22 11:55] VITALS: BP 123/68; TEMP 97.3; O2SAT 96
== END 2023-09-22 12:00 | disposition home or self-care (01) ==
LOC: M INFU 09:49
PROVIDERS: ATTEND Internal Medicine
DX: M06.09 Rheumatoid arthritis without rheumatoid factor, multiple sites (principal); Z88.2 Allergy status to sulfonamides; Z88.6 Allergy status to analgesic agent; Z88.5 Allergy status to narcotic agent; Z88.8 Allergy status to other drugs, medicaments and biological substances
CPT/HCPCS: 96413; Q5103

== ENCOUNTER → 2023-11-09 | Outpatient (CLI) | payer MEDICARE ==
[~2023-11-09] MED LIST changes: -ALBUTEROL SULFATE 2.5MG/0.5ML INH NEB SOLN INH PRN; -EPINEPHrine INJ 1 MG/ML 1ML AMP IM PRN; -diphenhydrAMINE 50MG/ML VIAL IV PRN; -methylPREDNISolone 125MG 2ML VIAL IV PRN
[2023-11-09 09:18] LABS: BASO % 0.7 % (0.0-1.0); EOS # 0.1 10^3/uL (0.0-0.5); EOS % 3.2 % (0.0-3.0); HEMOGLOBIN 13.8 g/dl (12.0-15.5); LYMPH # 1.7 10^3/uL (1.5-5.0); LYMPH % 38.7 % (24.0-44.0); MEAN CORPUSCULAR HEMOGLOBIN 30.6 pg (27.0-33.0); MEAN CORPUSCULAR HGB CONC 32.9 g/dl (32.0-36.5); MEAN CORPUSCULAR VOLUME 93.1 fl (80.0-96.0); MONO # 0.6 10^3/uL (0.0-0.8); MONO % 14.4 % (2.0-8.0); NEUTROPHILS # 1.9 10^3/uL (1.5-8.5); NEUTROPHILS % 42.8 % (36.0-66.0); PLATELET COUNT, AUTOMATED 246 10^3/uL (150-450); RED BLOOD COUNT 4.51 10^6/uL (4.00-5.40); WHITE BLOOD COUNT 4.4 10^3/uL (4.0-10.0)
[2023-11-09 09:23] LABS: ERYTHROCYTE SEDIMENTATION RATE 19 mm/hr (0-30)
[2023-11-09 09:41] LABS: C REACTIVE PROTEIN QUANTITATIV < 0.40 MG/DL (<1.0)
[2023-11-09 09:43] LABS: ALBUMIN 3.8 G/DL (3.2-5.2); ALKALINE PHOSPHATASE 104 U/L (46-116); ALT/SGPT 39 U/L (7.0-40); AST/SGOT 27 U/L (<34); BILIRUBIN,DIRECT 0.1 MG/DL (<0.4); BILIRUBIN,TOTAL 0.4 MG/DL (0.3-1.2); BLOOD UREA NITROGEN 18 MG/DL (9-23); CALCIUM LEVEL 9.4 MG/DL (8.3-10.6); CARBON DIOXIDE LEVEL 30 MMOL/L (20-31); CHLORIDE LEVEL 106 MMOL/L (98-107); CREATININE FOR GFR 0.66 MG/DL (0.55-1.30); GLOMERULAR FILTRATION RATE > 60.0 (>45); GLUCOSE, FASTING 97 MG/DL (74-106); SODIUM LEVEL 140 MMOL/L (136-145); TOTAL PROTEIN 6.8 G/DL (5.7-8.2)
== END ==
LOC: M LAB 08:18
PROVIDERS: ATTEND Internal Medicine
DX: M06.09 Rheumatoid arthritis without rheumatoid factor, multiple sites (principal)

== ENCOUNTER 2023-11-17 10:30 | Outpatient (CLI) | payer MEDICARE ==
[~2023-11-17] VITALS: Ht 167.6 cm; Wt 80.5 kg
[~2023-11-17 10:30] MED LIST changes: +ALBUTEROL SULFATE 2.5MG/0.5ML INH NEB SOLN INH PRN; +EPINEPHrine INJ 1 MG/ML 1ML AMP IM PRN; +diphenhydrAMINE 50MG/ML VIAL IV PRN; +methylPREDNISolone 125MG 2ML VIAL IV PRN
[2023-11-17 11:17] VITALS: BP 139/65; O2SAT 100
[2023-11-17] MEDS: INFLIXIMAB BIOSIMILAR 500 MG in NS 200 ML IV ONE (11:25)
[2023-11-17 12:30] VITALS: BP 119/62; O2SAT 100
== END 2023-11-17 12:10 ==
LOC: M INFU 10:30
PROVIDERS: ATTEND Internal Medicine
DX: M06.09 Rheumatoid arthritis without rheumatoid factor, multiple sites (principal); Z88.2 Allergy status to sulfonamides; Z88.5 Allergy status to narcotic agent; Z88.6 Allergy status to analgesic agent; Z88.8 Allergy status to other drugs, medicaments and biological substances
CPT/HCPCS: 96413; Q5103

== ENCOUNTER → 2023-11-27 | Outpatient (CLI) | payer MEDICARE ==
[~2023-11-27] MED LIST changes: -ALBUTEROL SULFATE 2.5MG/0.5ML INH NEB SOLN INH PRN; -EPINEPHrine INJ 1 MG/ML 1ML AMP IM PRN; -diphenhydrAMINE 50MG/ML VIAL IV PRN; -methylPREDNISolone 125MG 2ML VIAL IV PRN
== END ==
LOC: M WHC 15:24
PROVIDERS: ATTEND Nurse Practitioner Family
DX: Z12.31 Encounter for screening mammogram for malignant neoplasm of breast (principal)

== ENCOUNTER 2024-01-12 10:20 | Outpatient (CLI) | payer MEDICARE ==
[~2024-01-12 10:20] MED LIST changes: +ALBUTEROL SULFATE 2.5MG/0.5ML INH NEB SOLN INH PRN; +EPINEPHrine INJ 1 MG/ML 1ML AMP IM PRN; +diphenhydrAMINE 50MG/ML VIAL IV PRN; +methylPREDNISolone 125MG 2ML VIAL IV PRN
[2024-01-12 10:31] VITALS: BP 138/63; O2SAT 99
[2024-01-12] MEDS: INFLIXIMAB BIOSIMILAR 500 MG in NS 200 ML IV ONE (10:52)
[2024-01-12 11:55] VITALS: BP 141/69; O2SAT 99
== END 2024-01-12 11:55 | disposition home or self-care (01) ==
LOC: M INFU 10:20
PROVIDERS: ATTEND Internal Medicine
DX: M06.09 Rheumatoid arthritis without rheumatoid factor, multiple sites (principal); Z88.2 Allergy status to sulfonamides; Z88.5 Allergy status to narcotic agent; Z88.6 Allergy status to analgesic agent; Z88.8 Allergy status to other drugs, medicaments and biological substances
CPT/HCPCS: 96413; Q5103

== ENCOUNTER → 2024-02-10 | Outpatient (CLI) | payer MEDICARE ==
[~2024-02-10] MED LIST changes: -ALBUTEROL SULFATE 2.5MG/0.5ML INH NEB SOLN INH PRN; -EPINEPHrine INJ 1 MG/ML 1ML AMP IM PRN; -diphenhydrAMINE 50MG/ML VIAL IV PRN; -methylPREDNISolone 125MG 2ML VIAL IV PRN
[2024-02-10 12:22] LABS: BASO % 0.9 % (0.0-1.0); EOS # 0.2 10^3/uL (0.0-0.5); HEMATOCRIT 40.4 % (36.0-47.0); HEMOGLOBIN 13.3 g/dl (12.0-15.5); LYMPH # 1.2 10^3/uL (1.5-5.0); MEAN CORPUSCULAR HEMOGLOBIN 31.1 pg (27.0-33.0); MEAN CORPUSCULAR HGB CONC 32.9 g/dl (32.0-36.5); MEAN CORPUSCULAR VOLUME 94.6 fl (80.0-96.0); MONO # 0.5 10^3/uL (0.0-0.8); MONO % 10.7 % (2.0-8.0); NEUTROPHILS # 2.4 10^3/uL (1.5-8.5); NEUTROPHILS % 55.9 % (36.0-66.0); PLATELET COUNT, AUTOMATED 251 10^3/uL (150-450); RED BLOOD COUNT 4.27 10^6/uL (4.00-5.40); WHITE BLOOD COUNT 4.3 10^3/uL (4.0-10.0)
[2024-02-10 12:38] LABS: ERYTHROCYTE SEDIMENTATION RATE 20 mm/hr (0-30)
[2024-02-10 12:46] LABS: C REACTIVE PROTEIN QUANTITATIV < 0.40 MG/DL (<1.0)
[2024-02-10 12:48] LABS: ALBUMIN 3.6 G/DL (3.2-5.2); ALKALINE PHOSPHATASE 107 U/L (46-116); ALT/SGPT 31 U/L (7.0-40); AST/SGOT 18 U/L (<34); BILIRUBIN,DIRECT < 0.1 MG/DL (<0.4); BILIRUBIN,TOTAL 0.3 MG/DL (0.3-1.2); BLOOD UREA NITROGEN 21 MG/DL (9-23); CALCIUM LEVEL 9.2 MG/DL (8.3-10.6); CARBON DIOXIDE LEVEL 31 MMOL/L (20-31); CHLORIDE LEVEL 109 MMOL/L (98-107); CREATININE FOR GFR 0.77 MG/DL (0.55-1.30); GLOMERULAR FILTRATION RATE > 60.0 (>45); GLUCOSE, FASTING 84 MG/DL (74-106); POTASSIUM SERUM 4.6 MMOL/L (3.5-5.1); SODIUM LEVEL 141 MMOL/L (136-145); TOTAL PROTEIN 6.7 G/DL (5.7-8.2)
== END ==
LOC: M LAB 10:03
PROVIDERS: ATTEND Internal Medicine
DX: Z00.00 Encounter for general adult medical examination without abnormal findings (principal); M06.09 Rheumatoid arthritis without rheumatoid factor, multiple sites; Z79.899 Other long term (current) drug therapy

== ENCOUNTER → 2024-02-10 | Outpatient (CLI) | payer MEDICARE ==
[2024-02-10 12:49] LABS: CHOLESTEROL RISK RATIO 4.44 (<5); HDL CHOLESTEROL 55.8 MG/DL (>40); LDL CHOLESTEROL 159.4 MG/DL (<100); NON-HDL-C 192.2 MG/DL
== END ==
LOC: M LAB 10:02
PROVIDERS: ATTEND Nurse Practitioner Family
DX: Z00.00 Encounter for general adult medical examination without abnormal findings (principal)

== ENCOUNTER 2024-03-08 09:58 | Outpatient (CLI) | payer MEDICARE ==
[~2024-03-08] VITALS: Ht 167.6 cm; Wt 83.0 kg
[~2024-03-08 09:58] MED LIST changes: +ALBUTEROL SULFATE 2.5MG/0.5ML INH NEB SOLN INH PRN; +EPINEPHrine INJ 1 MG/ML 1ML AMP IM PRN; +diphenhydrAMINE 50MG/ML VIAL IV PRN; +methylPREDNISolone 125MG 2ML VIAL IV PRN
[2024-03-08 10:24] VITALS: BP 120/68; TEMP 98; O2SAT 95
[2024-03-08] MEDS: INFLIXIMAB BIOSIMILAR 500 MG in NS 200 ML IV ONE (10:53)
[2024-03-08 11:55] VITALS: BP 131/60; O2SAT 97
== END 2024-03-08 11:50 ==
LOC: M INFU 09:58
PROVIDERS: ATTEND Internal Medicine
DX: M06.09 Rheumatoid arthritis without rheumatoid factor, multiple sites (principal); Z88.2 Allergy status to sulfonamides; Z88.6 Allergy status to analgesic agent; Z88.5 Allergy status to narcotic agent; Z88.8 Allergy status to other drugs, medicaments and biological substances; Z91.048 Other nonmedicinal substance allergy status
CPT/HCPCS: 96413; Q5103

== ENCOUNTER 2024-05-04 10:35 | Outpatient (CLI) | payer MEDICARE ==
[~2024-05-04] VITALS: Ht 167.6 cm; Wt 80.5 kg
[2024-05-04 10:58] VITALS: BP 140/65; O2SAT 98
[2024-05-04] MEDS: INFLIXIMAB BIOSIMILAR 500 MG in NS 200 ML IV ONE (11:32)
[2024-05-04 11:50] VITALS: BP 98/57; O2SAT 98
[2024-05-04 12:35] VITALS: BP 127/67; O2SAT 98
== END 2024-05-04 12:35 ==
LOC: M INFU 10:35
PROVIDERS: ATTEND Internal Medicine
DX: M06.09 Rheumatoid arthritis without rheumatoid factor, multiple sites (principal); Z88.2 Allergy status to sulfonamides; Z88.6 Allergy status to analgesic agent; Z88.5 Allergy status to narcotic agent; Z88.8 Allergy status to other drugs, medicaments and biological substances
CPT/HCPCS: 96413; Q5103

== ENCOUNTER → 2024-05-10 | Outpatient (CLI) | payer MEDICARE ==
[~2024-05-10] MED LIST changes: -ALBUTEROL SULFATE 2.5MG/0.5ML INH NEB SOLN INH PRN; -EPINEPHrine INJ 1 MG/ML 1ML AMP IM PRN; -diphenhydrAMINE 50MG/ML VIAL IV PRN; -methylPREDNISolone 125MG 2ML VIAL IV PRN
[2024-05-10 11:18] LABS: BASO % 0.7 % (0.0-1.0); EOS # 0.2 10^3/uL (0.0-0.5); EOS % 4.1 % (0.0-3.0); HEMATOCRIT 40.3 % (36.0-47.0); HEMOGLOBIN 13.2 g/dl (12.0-15.5); LYMPH # 1.4 10^3/uL (1.5-5.0); LYMPH % 33.9 % (24.0-44.0); MEAN CORPUSCULAR HEMOGLOBIN 31.1 pg (27.0-33.0); MEAN CORPUSCULAR HGB CONC 32.8 g/dl (32.0-36.5); MEAN CORPUSCULAR VOLUME 94.8 fl (80.0-96.0); MONO # 0.5 10^3/uL (0.0-0.8); MONO % 11.7 % (2.0-8.0); NEUTROPHILS % 49.4 % (36.0-66.0); PLATELET COUNT, AUTOMATED 228 10^3/uL (150-450); RED BLOOD COUNT 4.25 10^6/uL (4.00-5.40); WHITE BLOOD COUNT 4.1 10^3/uL (4.0-10.0)
[2024-05-10 11:23] LABS: ERYTHROCYTE SEDIMENTATION RATE 21 mm/hr (0-30)
[2024-05-10 11:47] LABS: C REACTIVE PROTEIN QUANTITATIV < 0.40 MG/DL (<1.0)
[2024-05-10 11:49] LABS: ALBUMIN 3.7 G/DL (3.2-5.2); ALKALINE PHOSPHATASE 110 U/L (46-116); ALT/SGPT 45 U/L (7.0-40); AST/SGOT 30 U/L (<34); BILIRUBIN,DIRECT 0.1 MG/DL (<0.4); BILIRUBIN,TOTAL 0.5 MG/DL (0.3-1.2); BLOOD UREA NITROGEN 17 MG/DL (9-23); CALCIUM LEVEL 9.3 MG/DL (8.3-10.6); CARBON DIOXIDE LEVEL 29 MMOL/L (20-31); CHLORIDE LEVEL 108 MMOL/L (98-107); CREATININE FOR GFR 0.77 MG/DL (0.55-1.30); GLOMERULAR FILTRATION RATE > 60.0 (>45); GLUCOSE, FASTING 91 MG/DL (74-106); POTASSIUM SERUM 4.6 MMOL/L (3.5-5.1); SODIUM LEVEL 141 MMOL/L (136-145)
== END ==
LOC: M LAB 10:25
PROVIDERS: ATTEND Internal Medicine
DX: M06.09 Rheumatoid arthritis without rheumatoid factor, multiple sites (principal)

== ENCOUNTER 2024-06-28 10:12 | Outpatient (CLI) | payer MEDICARE ==
[~2024-06-28] VITALS: Ht 167.6 cm; Wt 78.1 kg
[~2024-06-28 10:12] MED LIST changes: +ALBUTEROL SULFATE 2.5MG/0.5ML INH NEB SOLN INH PRN; +EPINEPHrine INJ 1 MG/ML 1ML AMP IM PRN; +diphenhydrAMINE 50MG/ML VIAL IV PRN; +methylPREDNISolone 125MG 2ML VIAL IV PRN
[2024-06-28 10:20] VITALS: BP 124/58; O2SAT 100
[2024-06-28] MEDS: INFLIXIMAB BIOSIMILAR 500 MG in NS 200 ML IV ONE (11:08)
[2024-06-28 12:15] VITALS: BP 119/57; O2SAT 100
== END 2024-06-28 12:15 ==
LOC: M INFU 10:12
PROVIDERS: ATTEND Internal Medicine
DX: M06.09 Rheumatoid arthritis without rheumatoid factor, multiple sites (principal); Z88.2 Allergy status to sulfonamides; Z88.6 Allergy status to analgesic agent; Z88.5 Allergy status to narcotic agent; Z88.8 Allergy status to other drugs, medicaments and biological substances
CPT/HCPCS: 96413; Q5103

== ENCOUNTER → 2024-08-08 | Outpatient (CLI) | payer MEDICARE ==
[~2024-08-08] MED LIST changes: -ALBUTEROL SULFATE 2.5MG/0.5ML INH NEB SOLN INH PRN; -EPINEPHrine INJ 1 MG/ML 1ML AMP IM PRN; -diphenhydrAMINE 50MG/ML VIAL IV PRN; -methylPREDNISolone 125MG 2ML VIAL IV PRN
[2024-08-08 11:44] LABS: BASO % 0.8 % (0.0-1.0); EOS # 0.1 10^3/uL (0.0-0.5); EOS % 2.7 % (0.0-3.0); HEMATOCRIT 40.7 % (36.0-47.0); HEMOGLOBIN 13.7 g/dl (12.0-15.5); LYMPH # 1.6 10^3/uL (1.5-5.0); LYMPH % 30.6 % (24.0-44.0); MEAN CORPUSCULAR HEMOGLOBIN 31.4 pg (27.0-33.0); MEAN CORPUSCULAR HGB CONC 33.7 g/dl (32.0-36.5); MEAN CORPUSCULAR VOLUME 93.1 fl (80.0-96.0); MONO # 0.6 10^3/uL (0.0-0.8); MONO % 11.2 % (2.0-8.0); NEUTROPHILS # 2.8 10^3/uL (1.5-8.5); NEUTROPHILS % 54.3 % (36.0-66.0); PLATELET COUNT, AUTOMATED 239 10^3/uL (150-450); RED BLOOD COUNT 4.37 10^6/uL (4.00-5.40); WHITE BLOOD COUNT 5.2 10^3/uL (4.0-10.0)
[2024-08-08 12:11] LABS: C REACTIVE PROTEIN QUANTITATIV < 0.40 MG/DL (<1.0)
[2024-08-08 12:12] LABS: ERYTHROCYTE SEDIMENTATION RATE 17 mm/hr (0-30)
[2024-08-08 12:13] LABS: ALBUMIN 3.7 G/DL (3.2-5.2); ALKALINE PHOSPHATASE 101 U/L (35-104); ALT/SGPT 32 U/L (7.0-40); AST/SGOT 21 U/L (<34); BILIRUBIN,DIRECT 0.1 MG/DL (<0.4); BILIRUBIN,TOTAL 0.4 MG/DL (0.3-1.2); BLOOD UREA NITROGEN 20 MG/DL (9-23); CALCIUM LEVEL 9.8 MG/DL (8.3-10.6); CARBON DIOXIDE LEVEL 31 MMOL/L (20-31); CHLORIDE LEVEL 106 MMOL/L (98-107); CREATININE FOR GFR 0.69 MG/DL (0.55-1.30); GLOMERULAR FILTRATION RATE > 60.0 (>45); GLUCOSE, FASTING 84 MG/DL (74-106); POTASSIUM SERUM 4.4 MMOL/L (3.5-5.1); SODIUM LEVEL 142 MMOL/L (136-145)
== END ==
LOC: M LAB 10:59
PROVIDERS: ATTEND Internal Medicine
DX: M06.09 Rheumatoid arthritis without rheumatoid factor, multiple sites (principal)

== ENCOUNTER 2024-08-23 10:25 | Outpatient (CLI) | payer MEDICARE ==
[~2024-08-23] VITALS: Ht 165.1 cm; Wt 81.0 kg
[~2024-08-23 10:25] MED LIST changes: +ALBUTEROL SULFATE 2.5MG/0.5ML INH NEB SOLN INH PRN; +EPINEPHrine INJ 1 MG/ML 1ML AMP IM PRN; +diphenhydrAMINE 50MG/ML VIAL IV PRN; +methylPREDNISolone 125MG 2ML VIAL IV PRN
[2024-08-23 10:33] VITALS: BP 162/76; O2SAT 98
[2024-08-23] MEDS: INFLIXIMAB BIOSIMILAR 500 MG in NS 200 ML IV ONE (11:03)
[2024-08-23 12:05] VITALS: BP 141/63; O2SAT 98
== END 2024-08-23 12:06 ==
LOC: M INFU 10:25
PROVIDERS: ATTEND Internal Medicine
DX: M06.09 Rheumatoid arthritis without rheumatoid factor, multiple sites (principal); Z88.2 Allergy status to sulfonamides; Z88.5 Allergy status to narcotic agent; Z88.6 Allergy status to analgesic agent; Z88.8 Allergy status to other drugs, medicaments and biological substances
CPT/HCPCS: 96413; Q5103

== ENCOUNTER → 2024-09-27 | Outpatient (REF) | payer MEDICARE ==
[~2024-09-27] MED LIST changes: -ALBUTEROL SULFATE 2.5MG/0.5ML INH NEB SOLN INH PRN; +BUPR150T12 PO; +CALCTAB54 PO; -EPINEPHrine INJ 1 MG/ML 1ML AMP IM PRN; +GABA-1172 PO; +IBUP200C27 PO; +LEVOTAB10 PO; +OMEG10002 PO; +RA N1TAB PO; +VITA100093 PO; +VITA1TAB61 PO; +[UNRECOGNIZED DRUG - OTHER] IV; -diphenhydrAMINE 50MG/ML VIAL IV PRN; -methylPREDNISolone 125MG 2ML VIAL IV PRN
[2024-09-27 18:40] LABS: BASO % 0.5 % (0.0-1.0); EOS # 0.2 10^3/uL (0.0-0.5); EOS % 2.4 % (0.0-3.0); ERYTHROCYTE SEDIMENTATION RATE 19 mm/hr (0-30); HEMATOCRIT 41.8 % (36.0-47.0); HEMOGLOBIN 13.6 g/dl (12.0-15.5); LYMPH # 1.9 10^3/uL (1.5-5.0); LYMPH % 30.5 % (24.0-44.0); MEAN CORPUSCULAR HEMOGLOBIN 30.8 pg (27.0-33.0); MEAN CORPUSCULAR HGB CONC 32.5 g/dl (32.0-36.5); MEAN CORPUSCULAR VOLUME 94.6 fl (80.0-96.0); MONO # 0.7 10^3/uL (0.0-0.8); MONO % 10.8 % (2.0-8.0); NEUTROPHILS # 3.5 10^3/uL (1.5-8.5); NEUTROPHILS % 55.6 % (36.0-66.0); PLATELET COUNT, AUTOMATED 218 10^3/uL (150-450); RED BLOOD COUNT 4.42 10^6/uL (4.00-5.40); WHITE BLOOD COUNT 6.3 10^3/uL (4.0-10.0)
[2024-09-27 18:56] LABS: C REACTIVE PROTEIN QUANTITATIV < 0.50 MG/DL (<1.0)
[2024-09-27 18:57] LABS: ALBUMIN 3.9 G/DL (3.2-5.2); ALKALINE PHOSPHATASE 121 U/L (35-104); ALT/SGPT 36 U/L (7.0-40); AST/SGOT 25 U/L (<34); BILIRUBIN,DIRECT < 0.1 MG/DL (<0.4); BILIRUBIN,TOTAL 0.3 MG/DL (0.3-1.2); BLOOD UREA NITROGEN 18 MG/DL (9-23); CALCIUM LEVEL 9.4 MG/DL (8.3-10.6); CARBON DIOXIDE LEVEL 31 MMOL/L (20-31); CHLORIDE LEVEL 105 MMOL/L (98-107); CREATININE FOR GFR 0.65 MG/DL (0.55-1.30); GLOMERULAR FILTRATION RATE > 60.0 (>45); GLUCOSE, FASTING 68 MG/DL (74-106); POTASSIUM SERUM 4.8 MMOL/L (3.5-5.1); SODIUM LEVEL 142 MMOL/L (136-145); TOTAL PROTEIN 7.1 G/DL (5.7-8.2)
== END ==
LOC: M SFHCRHEU 12:43
PROVIDERS: ATTEND Internal Medicine
DX: M06.09 Rheumatoid arthritis without rheumatoid factor, multiple sites (principal)

== ENCOUNTER → 2024-09-28 | Outpatient (CLI) | payer MEDICARE ==
[~2024-09-28] MED LIST changes: -BUPR150T12 PO; -CALCTAB54 PO; -GABA-1172 PO; -IBUP200C27 PO; -LEVOTAB10 PO; -OMEG10002 PO; -RA N1TAB PO; -VITA100093 PO; -VITA1TAB61 PO; -[UNRECOGNIZED DRUG - OTHER] IV
== END ==
LOC: M RAD 10:13
PROVIDERS: ATTEND Internal Medicine
DX: M06.09 Rheumatoid arthritis without rheumatoid factor, multiple sites (principal); M19.041 Primary osteoarthritis, right hand; M19.042 Primary osteoarthritis, left hand

== ENCOUNTER 2024-10-10 09:35 | Day surgery (SDC) | payer MEDICARE ==
[~2024-10-10] VITALS: Ht 167.6 cm; Wt 80.6 kg
[~2024-10-10 09:35] MED LIST changes: +BUPR150T12 PO; +CALCTAB54 PO; +GABA-1172 PO; +IBUP200C27 PO; +LEVOTAB10 PO; +OMEG10002 PO; +RA N1TAB PO; +VITA100093 PO; +VITA1TAB61 PO; +[UNRECOGNIZED DRUG - OTHER] IV
[2024-10-10] MEDS ORDERED: propofoL 200 MG/20 ML VIAL As Ordered ONE (11:21)
[2024-10-10 11:46] VITALS: TEMP 97.4
[2024-10-10 12:10] VITALS: BP 127/60; O2SAT 99
== END 2024-10-10 12:17 | disposition home or self-care (01) ==
LOC: M OPP 09:35
PROVIDERS: ATTEND Internal Medicine Gastroenterology
DX: Z12.11 Encounter for screening for malignant neoplasm of colon (principal); D12.6 Benign neoplasm of colon, unspecified; K63.5 Polyp of colon; Z88.2 Allergy status to sulfonamides; Z88.6 Allergy status to analgesic agent; Z88.5 Allergy status to narcotic agent; Z88.8 Allergy status to other drugs, medicaments and biological substances; Z91.018 Allergy to other foods; Z79.899 Other long term (current) drug therapy

== ENCOUNTER 2024-10-18 10:12 | Outpatient (CLI) | payer MEDICARE ==
[~2024-10-18] VITALS: Ht 167.6 cm; Wt 80.0 kg
[~2024-10-18 10:12] MED LIST changes: +ALBUTEROL SULFATE 2.5MG/0.5ML INH NEB SOLN INH PRN; +EPINEPHrine INJ 1 MG/ML 1ML AMP IM PRN; +diphenhydrAMINE 50MG/ML VIAL IV PRN; +methylPREDNISolone 125MG 2ML VIAL IV PRN
[2024-10-18] MEDS: INFLIXIMAB BIOSIMILAR 500 MG in NS 200 ML IV ONE (11:34)
[2024-10-18 12:35] VITALS: BP 144/77; O2SAT 99
== END 2024-10-18 12:35 ==
LOC: M INFU 10:12
PROVIDERS: ATTEND Internal Medicine
DX: M06.09 Rheumatoid arthritis without rheumatoid factor, multiple sites (principal); Z88.2 Allergy status to sulfonamides; Z88.5 Allergy status to narcotic agent; Z88.6 Allergy status to analgesic agent; Z88.8 Allergy status to other drugs, medicaments and biological substances; Z91.018 Allergy to other foods
CPT/HCPCS: 96413; Q5103

== ENCOUNTER → 2024-10-20 | Outpatient (CLI) | payer MEDICARE ==
[~2024-10-20] MED LIST changes: -ALBUTEROL SULFATE 2.5MG/0.5ML INH NEB SOLN INH PRN; -EPINEPHrine INJ 1 MG/ML 1ML AMP IM PRN; -diphenhydrAMINE 50MG/ML VIAL IV PRN; -methylPREDNISolone 125MG 2ML VIAL IV PRN
== END ==
LOC: M PLAIMG 09:45
PROVIDERS: ATTEND Internal Medicine
DX: M79.641 Pain in right hand (principal); M79.642 Pain in left hand

== ENCOUNTER → 2024-11-28 | Outpatient (CLI) | payer MEDICARE | LOC: M WHC 09:32 | PROVIDERS: ATTEND Nurse Practitioner Family | DX: Z12.31 Encounter for screening mammogram for malignant neoplasm of breast (principal); M85.89 Other specified disorders of bone density and structure, multiple sites; R92.323 Mammographic fibroglandular density, bilateral breasts ==

== ENCOUNTER 2024-12-13 10:00 | Outpatient (CLI) | payer MEDICARE ==
[~2024-12-13] VITALS: Ht 165.1 cm; Wt 81.4 kg
[2024-12-13 10:00] VITALS: BP 126/62; O2SAT 99
[~2024-12-13 10:00] MED LIST changes: +ALBUTEROL SULFATE 2.5MG/0.5ML INH NEB SOLN INH PRN; +EPINEPHrine INJ 1 MG/ML 1ML AMP IM PRN; +diphenhydrAMINE 50MG/ML VIAL IV PRN; +methylPREDNISolone 125MG 2ML VIAL IV PRN
[2024-12-13] MEDS: INFLIXIMAB BIOSIMILAR 500 MG in NS 200 ML IV ONE (11:02)
[2024-12-13 11:20] VITALS: BP 131/72; O2SAT 100
[2024-12-13 12:05] VITALS: BP 126/70; O2SAT 97
== END 2024-12-13 12:05 ==
LOC: M INFU 10:00
PROVIDERS: ATTEND Internal Medicine
DX: M06.09 Rheumatoid arthritis without rheumatoid factor, multiple sites (principal); Z88.2 Allergy status to sulfonamides; Z88.5 Allergy status to narcotic agent; Z88.6 Allergy status to analgesic agent; Z88.8 Allergy status to other drugs, medicaments and biological substances; Z91.018 Allergy to other foods
CPT/HCPCS: 96413; Q5103

== ENCOUNTER → 2024-12-26 | Outpatient (CLI) | payer MEDICARE ==
[~2024-12-26] MED LIST changes: -ALBUTEROL SULFATE 2.5MG/0.5ML INH NEB SOLN INH PRN; -EPINEPHrine INJ 1 MG/ML 1ML AMP IM PRN; -diphenhydrAMINE 50MG/ML VIAL IV PRN; -methylPREDNISolone 125MG 2ML VIAL IV PRN
[2024-12-26 11:36] LABS: BASO % 0.8 % (0.0-1.0); EOS # 0.2 10^3/uL (0.0-0.5); EOS % 3.8 % (0.0-3.0); HEMATOCRIT 41.6 % (36.0-47.0); HEMOGLOBIN 13.6 g/dl (12.0-15.5); LYMPH # 1.3 10^3/uL (1.5-5.0); LYMPH % 28.4 % (24.0-44.0); MEAN CORPUSCULAR HEMOGLOBIN 30.9 pg (27.0-33.0); MEAN CORPUSCULAR HGB CONC 32.7 g/dl (32.0-36.5); MEAN CORPUSCULAR VOLUME 94.5 fl (80.0-96.0); MONO # 0.6 10^3/uL (0.0-0.8); MONO % 11.7 % (2.0-8.0); NEUTROPHILS # 2.6 10^3/uL (1.5-8.5); NEUTROPHILS % 54.9 % (36.0-66.0); PLATELET COUNT, AUTOMATED 229 10^3/uL (150-450); WHITE BLOOD COUNT 4.7 10^3/uL (4.0-10.0)
[2024-12-26 11:40] LABS: C REACTIVE PROTEIN QUANTITATIV < 0.50 MG/DL (<1.0)
[2024-12-26 11:41] LABS: ALBUMIN 3.5 G/DL (3.2-5.2); ALKALINE PHOSPHATASE 110 U/L (35-104); ALT/SGPT 38 U/L (7.0-40); AST/SGOT 27 U/L (<34); BILIRUBIN,DIRECT < 0.1 MG/DL (<0.4); BILIRUBIN,TOTAL 0.3 MG/DL (0.3-1.2); BLOOD UREA NITROGEN 22 MG/DL (9-23); CALCIUM LEVEL 9.3 MG/DL (8.3-10.6); CARBON DIOXIDE LEVEL 30 MMOL/L (20-31); CHLORIDE LEVEL 106 MMOL/L (98-107); CREATININE FOR GFR 0.74 MG/DL (0.55-1.30); GLOMERULAR FILTRATION RATE 88.6 (>45); GLUCOSE, FASTING 74 MG/DL (74-106); POTASSIUM SERUM 4.5 MMOL/L (3.5-5.1); SODIUM LEVEL 143 MMOL/L (136-145); TOTAL PROTEIN 6.7 G/DL (5.7-8.2)
[2024-12-26 11:46] LABS: ERYTHROCYTE SEDIMENTATION RATE 19 mm/hr (0-30)
== END ==
LOC: M LAB 10:18
PROVIDERS: ATTEND Internal Medicine
DX: M06.09 Rheumatoid arthritis without rheumatoid factor, multiple sites (principal)

== ENCOUNTER 2025-01-16 04:10 | Emergency (ER) | payer MEDICARE ==
[~2025-01-16] VITALS: Ht 167.6 cm; Wt 79.5 kg
[2025-01-16 04:16] VITALS: BP 142/62; TEMP 96.9; O2SAT 100
== END 2025-01-16 05:20 | disposition left against medical advice (07) ==
LOC: M ED 04:10
DX: Z53.21 Procedure and treatment not carried out due to patient leaving prior to being seen by health care provider (principal)

== ENCOUNTER → 2025-03-29 | Outpatient (CLI) | payer MEDICARE ==
[2025-03-29 14:12] LABS: BASO # 0.0 10^3/uL (0.0-0.2); BASO % 0.2 % (0.0-1.0); EOS # 0.7 10^3/uL (0.0-0.5); EOS % 9.8 % (0.0-3.0); LYMPH # 1.8 10^3/uL (1.5-5.0); LYMPH % 27.2 % (24.0-44.0); MONO # 0.7 10^3/uL (0.0-0.8); MONO % 9.8 % (2.0-8.0); NEUTROPHILS # 3.5 10^3/uL (1.5-8.5); NEUTROPHILS % 52.4 % (36.0-66.0); PLATELET COUNT, AUTOMATED 243 10^3/uL (150-450)
[2025-03-29 14:30] LABS: ERYTHROCYTE SEDIMENTATION RATE 25 mm/hr (0-30)
[2025-03-29 14:41] LABS: C REACTIVE PROTEIN QUANTITATIV < 0.50 MG/DL (<1.0)
[2025-03-29 14:42] LABS: ALT/SGPT 24 U/L (7.0-40); AST/SGOT 23 U/L (<34); CALCIUM LEVEL 9.6 MG/DL (8.3-10.6); CARBON DIOXIDE LEVEL 29 MMOL/L (20-31); CHLORIDE LEVEL 105 MMOL/L (98-107); CREATININE FOR GFR 0.78 MG/DL (0.55-1.30); GLOMERULAR FILTRATION RATE 82.7 (>45); POTASSIUM SERUM 4.7 MMOL/L (3.5-5.1); SODIUM LEVEL 142 MMOL/L (136-145)
== END ==
LOC: M LAB 12:54
PROVIDERS: ATTEND Internal Medicine
DX: M06.09 Rheumatoid arthritis without rheumatoid factor, multiple sites (principal)

== ENCOUNTER 2025-04-10 10:31 | Outpatient (CLI) | payer MEDICARE ==
[~2025-04-10] VITALS: Ht 167.6 cm; Wt 80.0 kg
[~2025-04-10 10:31] MED LIST changes: +ALBUTEROL SULFATE 2.5 MG/0.5 ML INH CONCENTRATE NEB SOLN INH PRN; +EPINEPHrine INJ 1 MG/ML 1ML AMP IM PRN; +diphenhydrAMINE 50 MG/ML VIAL IV PRN
[2025-04-10 11:00] VITALS: BP 111/58; O2SAT 98
[2025-04-10] MEDS: INFLIXIMAB BIOSIMILAR 500 MG in NS 200 ML IV ONE (11:54)
[2025-04-10 12:21] VITALS: BP 122/64; O2SAT 99
[2025-04-10 13:10] VITALS: BP 115/69; O2SAT 99
== END 2025-04-10 13:10 | disposition home or self-care (01) ==
LOC: M INFU 10:31
PROVIDERS: ATTEND Internal Medicine
DX: M06.09 Rheumatoid arthritis without rheumatoid factor, multiple sites (principal); Z88.2 Allergy status to sulfonamides; Z88.6 Allergy status to analgesic agent; Z88.5 Allergy status to narcotic agent; Z88.8 Allergy status to other drugs, medicaments and biological substances; Z91.018 Allergy to other foods
CPT/HCPCS: 96413; Q5103

== ENCOUNTER 2025-06-05 10:25 | Outpatient (CLI) | payer MEDICARE ==
[~2025-06-05] VITALS: Ht 167.6 cm; Wt 79.5 kg
[2025-06-05 10:50] VITALS: BP 145/64; O2SAT 99
[2025-06-05] MEDS ORDERED: NS (Normal Saline) 0.9% 1,000 ML IV SCH (11:00)
[2025-06-05] MEDS: INFLIXIMAB BIOSIMILAR 500 MG in NS 200 ML IV ONE (11:31)
[2025-06-05 11:53] VITALS: BP 115/61; O2SAT 100
[2025-06-05 12:37] VITALS: BP 119/73; O2SAT 99
== END 2025-06-05 12:40 ==
LOC: M INFU 10:25
PROVIDERS: ATTEND Internal Medicine
DX: M06.09 Rheumatoid arthritis without rheumatoid factor, multiple sites (principal); Z88.2 Allergy status to sulfonamides; Z88.5 Allergy status to narcotic agent; Z88.6 Allergy status to analgesic agent; Z88.8 Allergy status to other drugs, medicaments and biological substances; Z91.018 Allergy to other foods
CPT/HCPCS: 96413; Q5103

== ENCOUNTER → 2025-06-13 | Outpatient (REF) | payer MEDICARE ==
[~2025-06-13] MED LIST changes: -ALBUTEROL SULFATE 2.5 MG/0.5 ML INH CONCENTRATE NEB SOLN INH PRN; -EPINEPHrine INJ 1 MG/ML 1ML AMP IM PRN; -diphenhydrAMINE 50 MG/ML VIAL IV PRN
== END ==
LOC: M SFHCRHEU 13:04
PROVIDERS: ATTEND Internal Medicine
DX: M06.09 Rheumatoid arthritis without rheumatoid factor, multiple sites (principal)

== ENCOUNTER → 2025-07-07 | Outpatient (REF) | payer MEDICARE | LOC: M PLALAB 09:40 | PROVIDERS: ATTEND Physician Assistant | DX: Z12.4 Encounter for screening for malignant neoplasm of cervix (principal) ==

== ENCOUNTER → 2025-07-07 | Outpatient (REF) | payer MEDICARE ==
[2025-07-11 15:59] LABS: HPV APTIMA Not Detected (Not Detected)
== END ==
LOC: M SFHCWAGY 13:13
PROVIDERS: ATTEND Physician Assistant
DX: Z12.4 Encounter for screening for malignant neoplasm of cervix (principal)

== ENCOUNTER 2025-07-17 07:03 | Outpatient (CLI) | payer MEDICARE ==
[~2025-07-17] VITALS: Ht 167.6 cm; Wt 84.0 kg
[~2025-07-17 07:03] MED LIST changes: +ALBUTEROL SULFATE 2.5 MG/0.5 ML INH CONCENTRATE NEB SOLN INH PRN; +EPINEPHrine INJ 1 MG/ML 1ML AMP IM PRN; +diphenhydrAMINE 50 MG/ML VIAL IV PRN
[2025-07-17 07:10] VITALS: BP 137/72; O2SAT 99
[2025-07-17] MEDS: INFLIXIMAB BIOSIMILAR 600 MG in NS 190 ML IV ONE (08:00)
[2025-07-17 08:51] VITALS: BP 126/67; O2SAT 100
[2025-07-17 09:06] VITALS: BP 118/59; O2SAT 98
== END 2025-07-17 09:08 | disposition home or self-care (01) ==
LOC: M INFU 07:03
PROVIDERS: ATTEND Internal Medicine
DX: M06.09 Rheumatoid arthritis without rheumatoid factor, multiple sites (principal); Z88.2 Allergy status to sulfonamides; Z88.8 Allergy status to other drugs, medicaments and biological substances; Z88.6 Allergy status to analgesic agent; Z91.018 Allergy to other foods
CPT/HCPCS: 96413; Q5103

== ENCOUNTER → 2025-08-01 | Outpatient (CLI) | payer MEDICARE ==
[~2025-08-01] MED LIST changes: -ALBUTEROL SULFATE 2.5 MG/0.5 ML INH CONCENTRATE NEB SOLN INH PRN; -EPINEPHrine INJ 1 MG/ML 1ML AMP IM PRN; -diphenhydrAMINE 50 MG/ML VIAL IV PRN
[2025-08-01 10:52] LABS: BASO # 0.0 10^3/uL (0.0-0.2); BASO % 0.8 % (0.0-1.0); EOS # 0.2 10^3/uL (0.0-0.5); EOS % 4.3 % (0.0-3.0); LYMPH # 1.4 10^3/uL (1.5-5.0); LYMPH % 36.8 % (24.0-44.0); MONO # 0.5 10^3/uL (0.0-0.8); MONO % 12.0 % (2.0-8.0); NEUTROPHILS # 1.8 10^3/uL (1.5-8.5); NEUTROPHILS % 45.8 % (36.0-66.0); PLATELET COUNT, AUTOMATED 265 10^3/uL (150-450)
[2025-08-01 11:28] LABS: C REACTIVE PROTEIN QUANTITATIV < 0.50 MG/DL (<1.0)
[2025-08-01 11:29] LABS: ALT/SGPT 46 U/L (7.0-40); AST/SGOT 32 U/L (<34); CALCIUM LEVEL 9.6 MG/DL (8.3-10.6); CARBON DIOXIDE LEVEL 30 MMOL/L (20-31); CHLORIDE LEVEL 104 MMOL/L (98-107); CREATININE FOR GFR 0.84 MG/DL (0.55-1.30); GLOMERULAR FILTRATION RATE 75.7 (>45); POTASSIUM SERUM 4.5 MMOL/L (3.5-5.1); SODIUM LEVEL 141 MMOL/L (136-145)
== END ==
LOC: M LAB 09:27
PROVIDERS: ATTEND Internal Medicine
DX: M06.09 Rheumatoid arthritis without rheumatoid factor, multiple sites (principal)

== ENCOUNTER 2025-08-28 10:28 | Outpatient (CLI) | payer MEDICARE, OTHER ==
[~2025-08-28] VITALS: Ht 167.6 cm; Wt 80.9 kg
[~2025-08-28 10:28] MED LIST changes: +ALBUTEROL SULFATE 2.5 MG/0.5 ML INH CONCENTRATE NEB SOLN INH PRN; +EPINEPHrine INJ 1 MG/ML 1ML AMP IM PRN; +diphenhydrAMINE 50 MG/ML VIAL IV PRN
[2025-08-28 11:00] VITALS: BP 130/68; O2SAT 99
[2025-08-28] MEDS: INFLIXIMAB BIOSIMILAR 600 MG in NS 190 ML IV ONE (11:50)
[2025-08-28 13:00] VITALS: BP 145/63; O2SAT 100
== END 2025-08-28 12:55 | disposition home or self-care (01) ==
LOC: M INFU 10:28
PROVIDERS: ATTEND Nurse Practitioner Family
DX: M06.09 Rheumatoid arthritis without rheumatoid factor, multiple sites (principal); Z88.2 Allergy status to sulfonamides; Z88.8 Allergy status to other drugs, medicaments and biological substances; Z88.6 Allergy status to analgesic agent
CPT/HCPCS: 96413; Q5103